=== PATIENT | female | born 1935 | race Caucasian/White ===

== ENCOUNTER 2018-07-02 11:58 | Inpatient (IN) | payer MEDICARE, BC ==
[~2018-07-02 11:58] MED LIST: Acetaminophen 325 MG Tab PO PRN; Bisacodyl 5 MG Tab PO PRN; Ondansetron 4 MG Tab.DIS PO PRN; Ondansetron 4 MG/2 ML SDV IVPUSH PRN; Sennosides 8.6 MG Tab PO PRN; Sodium Chloride 0.9% 10 ML Syringe FLUSH PRN
[2018-07-02] MEDS ORDERED: Gabapentin 300 MG Cap PO SCH (12:00)
[2018-07-02] MEDS: Gabapentin 300 MG Cap PO SCH ×2 (13:07→17:19)
[2018-07-02] MEDS: Insulin Detemir 100 Units/ML 3 ML Pen SUBCUT SCH (17:16)
[2018-07-02] MEDS: Albuterol/Ipratropium 3.0-0.5 MG/3 ML Neb Soln NEB SCH ×2 (17:16→23:06)
[2018-07-02] MEDS: Carvedilol 25 MG Tab PO SCH (17:22)
[2018-07-02] MEDS ORDERED: Insulin Detemir 100 Units/ML 3 ML Pen SUBCUT SCH (18:00)
[2018-07-02] MEDS: Sodium Chloride 1 GM Tab PO SCH (19:27)
[2018-07-02] MEDS: traZODone 50 MG Tab PO SCH (19:27)
[2018-07-02] MEDS: buPROPion 150 MG Tab.SR PO SCH (19:27)
[2018-07-02] MEDS: Latanoprost 0.005% Ophth Soln 2.5 ML Bottle EYEBOTH SCH (19:28)
[2018-07-02] MEDS ORDERED: Latanoprost 0.005% Ophth Soln 2.5 ML Bottle EYEBOTH SCH (20:00)
[2018-07-03] MEDS ORDERED: Temazepam 15 MG Cap PO PRN (02:24)
[2018-07-03] MEDS ORDERED: Non-Formulary Medication 1 Each (Multivit-Min/Fa/Lycopene/Lut [Centrum Silver Tablet] 1 TA PO SCH (08:00)
[2018-07-03] MEDS ORDERED: METOLAZONE 5 MG PO SCH (08:00)
[2018-07-03] MEDS ORDERED: Insulin Detemir 100 Units/ML 3 ML Pen SUBCUT SCH (08:00)
[2018-07-03] MEDS ORDERED: Non-Formulary Medication 1 Each (Lisinopril [Lisinopril] 40 MG) PO SCH (08:00)
[2018-07-03] MEDS ORDERED: glipiZIDE 5 MG Tab.ER PO SCH (08:00)
[2018-07-03] MEDS: Metolazone 2.5 MG Tab PO SCH (08:06)
[2018-07-03] MEDS: Enoxaparin 30 MG/0.3 ML Syringe SUBCUT SCH (08:06)
[2018-07-03] MEDS: Albuterol/Ipratropium 3.0-0.5 MG/3 ML Neb Soln NEB SCH ×3 (08:06→23:35)
[2018-07-03] MEDS: atorvaSTATin 10 MG Tab PO SCH (08:06)
[2018-07-03] MEDS: Cholecalciferol (Vitamin D3) 1,000 Unit Tab PO SCH (08:07)
[2018-07-03] MEDS: glipiZIDE 5 MG Tab.ER PO SCH (08:07)
[2018-07-03] MEDS: amLODIPine 5 MG Tab PO SCH (08:09)
[2018-07-03] MEDS: Gabapentin 300 MG Cap PO SCH ×3 (08:09→17:39)
[2018-07-03] MEDS: Lisinopril 20 MG Tab PO SCH (08:10)
[2018-07-03] MEDS: buPROPion 150 MG Tab.SR PO SCH ×2 (08:10→20:16)
[2018-07-03] MEDS: Sodium Chloride 1 GM Tab PO SCH ×2 (08:11→20:15)
[2018-07-03] MEDS: Carvedilol 25 MG Tab PO SCH ×2 (08:11→17:37)
[2018-07-03] MEDS: Multivitamin Tab PO SCH (08:12)
[2018-07-03] MEDS: Insulin Detemir 100 Units/ML 3 ML Pen SUBCUT SCH ×2 (08:12→17:42)
[2018-07-03] MEDS: traZODone 50 MG Tab PO SCH (20:16)
[2018-07-03] MEDS: Latanoprost 0.005% Ophth Soln 2.5 ML Bottle EYEBOTH SCH (20:16)
[2018-07-04] MEDS: Albuterol/Ipratropium 3.0-0.5 MG/3 ML Neb Soln NEB SCH ×3 (07:27→23:35)
[2018-07-04] MEDS: Enoxaparin 30 MG/0.3 ML Syringe SUBCUT SCH (07:27)
[2018-07-04] MEDS: Multivitamin Tab PO SCH (07:28)
[2018-07-04] MEDS: Gabapentin 300 MG Cap PO SCH ×4 (07:28→17:16)
[2018-07-04] MEDS: glipiZIDE 5 MG Tab.ER PO SCH (07:28)
[2018-07-04] MEDS: Metolazone 2.5 MG Tab PO SCH (07:28)
[2018-07-04] MEDS: buPROPion 150 MG Tab.SR PO SCH ×2 (07:28→19:52)
[2018-07-04] MEDS: Lisinopril 20 MG Tab PO SCH (07:28)
[2018-07-04] MEDS: atorvaSTATin 10 MG Tab PO SCH (07:28)
[2018-07-04] MEDS: Carvedilol 25 MG Tab PO SCH ×2 (07:29→16:55)
[2018-07-04] MEDS: amLODIPine 5 MG Tab PO SCH (07:29)
[2018-07-04] MEDS: Cholecalciferol (Vitamin D3) 1,000 Unit Tab PO SCH (07:29)
[2018-07-04] MEDS: Sodium Chloride 1 GM Tab PO SCH ×2 (07:29→19:52)
[2018-07-04] MEDS: Insulin Detemir 100 Units/ML 3 ML Pen SUBCUT SCH ×3 (08:30→17:17)
--- NOTE | 2018-07-04 12:31 | PCM.PN ---
- General Info Date of Service: 07/04/18 Admission Dx/Problem (Free Text): Patient admitted with urosepsis acute [place] supraventricular tach Functional Status: Reports: Other (Same as above) - Review of Systems General: Reports: Fever, Weakness HEENT: Reports: No Symptoms Pulmonary: Reports: Shortness of Breath Cardiovascular: Reports: No Symptoms Gastrointestinal: Reports: No Symptoms Genitourinary: Reports: Other ([place]gett catheter) Musculoskeletal: Reports: No Symptoms Neurological: Reports: Confusion, Weakness Psychiatric: Reports: Confusion, Agitation - Patient Data Vitals - Most Recent: Last Vital Signs Temp 97.8 F 07/04/18 07:32 Pulse 56 L 07/04/18 07:32 Resp 20 07/04/18 07:32 BP 136/73 07/04/18 07:32 Pulse Ox 92 L 07/04/18 07:32 Weight - Most Recent: 180 lb 15.992 oz I&O - Last 24 Hours: Intake & Output 07/03/18 07/04/18 07/04/18 22:59 06:59 14:59 Intake Total 910 320 Balance 910 320 Lab Results Last 24 Hours: Laboratory Results - last 24 hr 07/03/18 07/03/18 07/03/18 Range/Units 11:29 16:51 21:22 POC Glucose 118 H 124 H 136 H (65-110) mg/dl 07/04/18 07/04/18 07/04/18 Range/Units 03:48 04:58 07:07 POC Glucose 37 L* 93 102 (65-110) mg/dl 07/04/18 Range/Units 11:00 POC Glucose 111 H (65-110) mg/dl Med Orders - Current: Current Medications Acetaminophen (Tylenol) 650 mg PO Q4H PRN PRN Reason: Pain (Mild 1-3)/fever Albuterol/Ipratropium (Duoneb 3.0-0.5 Mg/3 Ml) 3 ml NEB Q8HRRT [facility] Last Admin: 07/04/18 07:27 Dose: 3 ml Amlodipine Besylate (Norvasc) 10 mg PO DAILY [facility] Last Admin: 07/04/18 07:29 Dose: 10 mg Atorvastatin Calcium (Lipitor) 10 mg PO DAILY [facility] Last Admin: 07/04/18 07:28 Dose: 10 mg Bisacodyl (Dulcolax) 5 mg PO DAILY PRN PRN Reason: Constipation Bupropion HCl (Wellbutrin Sr) 150 mg PO Q12H [facility] Last Admin: 07/04/18 07:28 Dose: 150 mg Carvedilol (Coreg) 25 mg PO BIDMEALS [facility] Last Admin: 07/04/18 07:29 Dose: 25 mg Cholecalciferol (Vitamin D3) 3,000 units PO DAILY [facility] Last Admin: 07/04/18 07:29 Dose: 3,000 units Coenzyme Q10 (Coenzyme Q10) 100 mg PO DAILY [facility] Last Admin: 07/04/18 07:28 Dose: 100 mg Enoxaparin Sodium (Lovenox) 30 mg SUBCUT DAILY [facility] Last Admin: 07/04/18 07:27 Dose: 30 mg Gabapentin (Neurontin) 300 mg PO TID [facility] Last Admin: 07/04/18 11:20 Dose: 300 mg Glipizide (Glucotrol Xl) 5 mg PO DAILY [facility] Last Admin: 07/04/18 07:28 Dose: 5 mg Insulin Detemir (Levemir) 35 unit SUBCUT QAM [facility] Last Admin: 07/04/18 08:30 Dose: 35 units Insulin Detemir (Levemir) 20 unit SUBCUT QPM [facility] Latanoprost (Xalatan 0.005% Ophth Soln) 0 ml EYEBOTH BEDTIME [facility] Last Admin: 07/03/18 20:16 Dose: 1 drop Lisinopril (Prinivil) 40 mg PO DAILY [facility] Last Admin: 07/04/18 07:28 Dose: 40 mg Metolazone (Zaroxolyn) 5 mg PO DAILY [facility] Last Admin: 07/04/18 07:28 Dose: 5 mg Multivitamins/Minerals/Vitamin C (Tab-A-Anson) 1 tab PO DAILY [facility] Last Admin: 07/04/18 07:28 Dose: 1 tab Ondansetron HCl (Zofran Odt) 4 mg PO Q6H PRN PRN Reason: Nausea/Vomiting Senna (Senna) 8.6 mg PO BID PRN PRN Reason: Constipation Sodium Chloride (Sodium Chloride) 1 gm PO BID@08,20 [facility] Last Admin: 07/04/18 07:29 Dose: 1 gm Sodium Chloride (Saline Flush) 10 ml FLUSH ASDIRECTED PRN PRN Reason: Keep Vein Open Sodium Chloride (Saline Flush) 10 ml FLUSH ASDIRECTED PRN PRN Reason: Keep Vein Open Temazepam (Restoril) 15 mg PO BEDTIME PRN PRN Reason: Insomnia Last Admin: 07/03/18 02:35 Dose: 15 mg Trazodone HCl (Trazodone) 100 mg PO BEDTIME [facility] Last Admin: 07/03/18 20:16 Dose: 100 mg Discontinued Medications Gabapentin (Neurontin) 300 mg PO TID [facility] Glipizide (Glucotrol Xl) 5 mg PO DAILY [facility] Insulin Detemir (Levemir) 30 unit SUBCUT QPM [facility] Insulin Detemir (Levemir) 35 unit SUBCUT QAM [facility] Insulin Detemir (Levemir) 30 unit SUBCUT QPM [facility] Last Admin: 07/03/18 17:42 Dose: 30 units Latanoprost (Xalatan 0.005% Ophth Soln) 0 ml EYEBOTH BEDTIME [facility] Non-Formulary Medication (Lisinopril [Lisinopril]) 40 mg PO DAILY [facility] Non-Formulary Medication (Metolazone [Metolazone]) 5 mg PO DAILY [facility] Non-Formulary Medication (Multivit-Min/Fa/Lycopene/Lut [Centrum Silver Tablet]) 1 tab PO DAILY [facility] Ondansetron HCl (Zofran) 4 mg IVPUSH Q6H PRN PRN Reason: Nausea/Vomiting - Exam Quality Assessment: Supplemental Oxygen General: Moderate Distress HEENT: Pupils Equal, Pupils Reactive, EOMI, Mucous Membr. Moist/[place] Neck: Supple Lungs: Clear to Auscultation, Decreased Breath Sounds Cardiovascular: Irregular Rhythm GI/Abdominal Exam: Normal Bowel Sounds, Soft, Non-Tender, No Organomegaly, No Distention, No Abnormal Bruit, No Mass, Pelvis Stable (Female) Exam: Deferred Back Exam: Normal Inspection, Full Range of Motion Extremities: No Pedal Edema Skin: Warm, Dry, Intact Psy/Mental Status: Labile Mood, Anxious, Depressed, Agitated - Problem List & Annotations (1) Sepsis SNOMED Code(s): 09231941 Code(s): A41.9 - SEPSIS, UNSPECIFIED ORGANISM Status: Acute Priority: High Current Visit: Yes Annotation/Comment:: Patient's blood culture positive for gram-positive cocci's Negative bacillus we will go ahead and add Levaquin to antibiotics - Problem List Review Problem List Initiated/Reviewed/Updated: Yes - My Orders Last 24 Hours: My Active Orders 07/04/18 12:21 Communication Order [RC] ASDIRECTED 07/04/18 18:00 Insulin Detemir [Levemir] 20 unit SUBCUT QPM
--- NOTE | 2018-07-04 12:41 | PCM.PN ---
- General Info Date of Service: 07/04/18 Admission Dx/Problem (Free Text): Patient admitted with urosepsis acute [place] supraventricular tach Functional Status: Reports: Tolerating Diet - Review of Systems General: Reports: No Symptoms HEENT: Reports: No Symptoms Pulmonary: Reports: No Symptoms Cardiovascular: Reports: No Symptoms Gastrointestinal: Reports: No Symptoms Genitourinary: Reports: No Symptoms Musculoskeletal: Reports: No Symptoms Skin: Reports: No Symptoms Neurological: Reports: No Symptoms Psychiatric: Reports: Other (History of depression patient has admitted suicide ideation and attempts patient states that she took leg 10 trazodone to see if she would go to sleep and not wake up and again she has tried insulin for the same reason she seems to be having a hard time coping with family patient will be referred to psychiatry for possible) - Patient Data Vitals - Most Recent: Last Vital Signs Temp 97.8 F 07/04/18 07:32 Pulse 56 L 07/04/18 07:32 Resp 20 07/04/18 07:32 BP 136/73 07/04/18 07:32 Pulse Ox 92 L 07/04/18 07:32 Weight - Most Recent: 180 lb 15.992 oz I&O - Last 24 Hours: Intake & Output 07/03/18 07/04/18 07/04/18 22:59 06:59 14:59 Intake Total 910 320 Balance 910 320 Lab Results Last 24 Hours: Laboratory Results - last 24 hr 07/03/18 07/03/18 07/03/18 Range/Units 11:29 16:51 21:22 POC Glucose 118 H 124 H 136 H (65-110) mg/dl 07/04/18 07/04/18 07/04/18 Range/Units 03:48 04:58 07:07 POC Glucose 37 L* 93 102 (65-110) mg/dl 07/04/18 Range/Units 11:00 POC Glucose 111 H (65-110) mg/dl Med Orders - Current: Current Medications Acetaminophen (Tylenol) 650 mg PO Q4H PRN PRN Reason: Pain (Mild 1-3)/fever Albuterol/Ipratropium (Duoneb 3.0-0.5 Mg/3 Ml) 3 ml NEB Q8HRRT [facility] Last Admin: 07/04/18 07:27 Dose: 3 ml Amlodipine Besylate (Norvasc) 10 mg PO DAILY [facility] Last Admin: 07/04/18 07:29 Dose: 10 mg Atorvastatin Calcium (Lipitor) 10 mg PO DAILY [facility] Last Admin: 07/04/18 07:28 Dose: 10 mg Bisacodyl (Dulcolax) 5 mg PO DAILY PRN PRN Reason: Constipation Bupropion HCl (Wellbutrin Sr) 150 mg PO Q12H [facility] Last Admin: 07/04/18 07:28 Dose: 150 mg Carvedilol (Coreg) 25 mg PO BIDMEALS [facility] Last Admin: 07/04/18 07:29 Dose: 25 mg Cholecalciferol (Vitamin D3) 3,000 units PO DAILY [facility] Last Admin: 07/04/18 07:29 Dose: 3,000 units Coenzyme Q10 (Coenzyme Q10) 100 mg PO DAILY [facility] Last Admin: 07/04/18 07:28 Dose: 100 mg Gabapentin (Neurontin) 300 mg PO TID [facility] Last Admin: 07/04/18 11:20 Dose: 300 mg Glipizide (Glucotrol Xl) 5 mg PO DAILY [facility] Last Admin: 07/04/18 07:28 Dose: 5 mg Levofloxacin/Dextrose 500 mg/ (Premix) 100 mls @ 100 mls/hr IV Q48H [facility] Insulin Detemir (Levemir) 35 unit SUBCUT QAM [facility] Last Admin: 07/04/18 08:30 Dose: 35 units Insulin Detemir (Levemir) 20 unit SUBCUT QPM [facility] Latanoprost (Xalatan 0.005% Oph Soln) 0 ml EYEBOTH BEDTIME [facility] Last Admin: 07/03/18 20:16 Dose: 1 drop Lisinopril (Prinivil) 40 mg PO DAILY [facility] Last Admin: 07/04/18 07:28 Dose: 40 mg Metolazone (Zaroxolyn) 5 mg PO DAILY [facility] Last Admin: 07/04/18 07:28 Dose: 5 mg Multivitamins/Minerals/Vitamin C (Tab-A-Anson) 1 tab PO DAILY [facility] Last Admin: 07/04/18 07:28 Dose: 1 tab Ondansetron HCl (Zofran Odt) 4 mg PO Q6H PRN PRN Reason: Nausea/Vomiting Senna (Senna) 8.6 mg PO BID PRN PRN Reason: Constipation Sodium Chloride (Sodium Chloride) 1 gm PO BID@08,20 [facility] Last Admin: 07/04/18 07:29 Dose: 1 gm Sodium Chloride (Saline Flush) 10 ml FLUSH ASDIRECTED PRN PRN Reason: Keep Vein Open Sodium Chloride (Saline Flush) 10 ml FLUSH ASDIRECTED PRN PRN Reason: Keep Vein Open Temazepam (Restoril) 15 mg PO BEDTIME PRN PRN Reason: Insomnia Last Admin: 07/03/18 02:35 Dose: 15 mg Trazodone HCl (Trazodone) 100 mg PO BEDTIME [facility] Last Admin: 07/03/18 20:16 Dose: 100 mg Discontinued Medications Enoxaparin Sodium (Lovenox) 30 mg SUBCUT DAILY [facility] Last Admin: 07/04/18 07:27 Dose: 30 mg Gabapentin (Neurontin) 300 mg PO TID [facility] Glipizide (Glucotrol Xl) 5 mg PO DAILY [facility] Insulin Detemir (Levemir) 30 unit SUBCUT QPM [facility] Insulin Detemir (Levemir) 35 unit SUBCUT QAM [facility] Insulin Detemir (Levemir) 30 unit SUBCUT QPM [facility] Last Admin: 07/03/18 17:42 Dose: 30 units Latanoprost (Xalatan 0.005% Ophth Soln) 0 ml EYEBOTH BEDTIME [facility] Non-Formulary Medication (Lisinopril [Lisinopril]) 40 mg PO DAILY [facility] Non-Formulary Medication (Metolazone [Metolazone]) 5 mg PO DAILY [facility] Non-Formulary Medication (Multivit-Min/Fa/Lycopene/Lut [Centrum Silver Tablet]) 1 tab PO DAILY [facility] Ondansetron HCl (Zofran) 4 mg IVPUSH Q6H PRN PRN Reason: Nausea/Vomiting - Exam General: Alert, Oriented HEENT: Pupils Equal, Pupils Reactive, EOMI, Mucous Membr. Moist/[place] Neck: Supple Lungs: Clear to Auscultation, Normal Respiratory Effort Cardiovascular: Regular Rate, Regular Rhythm GI/Abdominal Exam: Normal Bowel Sounds, Soft, Non-Tender, No Organomegaly, No Distention, No Abnormal Bruit, No Mass, Pelvis Stable (Female) Exam: Normal External Exam, Normal Speculum Exam, Normal Bimanual Exam Back Exam: Normal Inspection Extremities: Other (Weakness) Skin: Warm, Dry, Intact Wound/Incisions: Healing Well Neurological: No New Focal Deficit Psy/Mental Status: Alert, Normal Affect, Normal Mood - Problem List & Annotations (1) Sepsis SNOMED Code(s): 87244087 Code(s): A41.9 - SEPSIS, UNSPECIFIED ORGANISM Status: Acute Priority: High Current Visit: Yes Annotation/Comment:: Patient's blood culture positive for gram-positive cocci's Negative bacillus we will go ahead and add Levaquin to antibiotics (2) Depression SNOMED Code(s): 89807385 Code(s): F32.9 - MAJOR DEPRESSIVE DISORDER, SINGLE EPISODE, UNSPECIFIED Status: Acute Current Visit: Yes - Problem List Review Problem List Initiated/Reviewed/Updated: Yes - My Orders Last 24 Hours: My Active Orders 07/04/18 12:21 Communication Order [RC] ASDIRECTED 07/04/18 12:33 Communication Order [RC] ASDIRECTED 07/04/18 12:45 Levofloxacin/Dextrose 5%-Water [Levaquin in D5W 500 MG/100 ML] 500 mg Premix Bag 1 bag IV Q48H 07/04/18 18:00 Insulin Detemir [Levemir] 20 unit SUBCUT QPM 07/05/18 05:11 BASIC METABOLIC PANEL,BMP [CHEM] AM CBC W/O DIFF,HEMOGRAM [HEME] AM
[2018-07-04] MEDS ORDERED: Levofloxacin/Dextrose 5%-Water 500 MG in Premix Bag 1 BAG IV SCH (13:00)
[2018-07-04] MEDS: traZODone 50 MG Tab PO SCH (19:52)
[2018-07-04] MEDS: Latanoprost 0.005% Ophth Soln 2.5 ML Bottle EYEBOTH SCH (19:53)
[2018-07-05] MEDS: Sodium Chloride 1 GM Tab PO SCH ×2 (07:28→19:53)
[2018-07-05] MEDS: amLODIPine 5 MG Tab PO SCH (07:28)
[2018-07-05] MEDS: glipiZIDE 5 MG Tab.ER PO SCH (07:29)
[2018-07-05] MEDS: Lisinopril 20 MG Tab PO SCH (07:29)
[2018-07-05] MEDS: atorvaSTATin 10 MG Tab PO SCH (07:29)
[2018-07-05] MEDS: Multivitamin Tab PO SCH (07:29)
[2018-07-05] MEDS: Carvedilol 25 MG Tab PO SCH ×2 (07:29→17:30)
[2018-07-05] MEDS: Metolazone 2.5 MG Tab PO SCH (07:29)
[2018-07-05] MEDS: buPROPion 150 MG Tab.SR PO SCH ×2 (07:29→19:52)
[2018-07-05] MEDS: Cholecalciferol (Vitamin D3) 1,000 Unit Tab PO SCH (07:29)
[2018-07-05] MEDS: Gabapentin 300 MG Cap PO SCH ×3 (07:29→17:33)
[2018-07-05] MEDS: Albuterol/Ipratropium 3.0-0.5 MG/3 ML Neb Soln NEB SCH ×2 (07:30→15:49)
[2018-07-05] MEDS: Insulin Detemir 100 Units/ML 3 ML Pen SUBCUT SCH ×2 (07:30→17:13)
[2018-07-05] MEDS ORDERED: Furosemide 40 MG Tab PO ONE (08:21)
[2018-07-05] MEDS ORDERED: Insulin Detemir 100 Units/ML 3 ML Pen SUBCUT ONE (17:10)
--- NOTE | 2018-07-05 18:52 | PCM.SN ---
- Free Text/Narrative Note: Patient admitted to [facility] after inpatient stay for CHF/SOB/hyponatremia. Did mention to staff that she had tried to overdose on Trazodone recently. Also apparently tried to give self extra insulin as she has been having suicidal thoughts recently. Patient also mentioned to one nurse that if she gets any sicker she could just overdose on insulin in the future. Family member reports that patient mentioned to her that she would be better off when they spoke within the last few weeks. Patient currently denies having active suicidal thoughts when visited today. She admits to feeling isolated and lonely at the [facility]. Family reports that patient's overall health and mobility have declined over the past few years. Call placed to [facility] today to discuss patient's admission of of the above/ suicidal thoughts. Discussed situation with from Psychiatry. No beds are currently available at [facility]. Given patient's current mobility issues /CHF this could be a road block to easy placement in an inpatient situation if it is decided that it is required. He felt that the best option would be to have the family bring the patient to the [facility] ER when she is discharged from [facility] so that she can be quickly evaluated for the above and best treatment options can be determined. It was not recommended that she return home and wait for outpatient evaluation as that can take some time to arrange. The [facility] is able to lock patient's medications away in the med dispensing area and this will avoid easy access for inappropriate use in the future once patient returns home. Patient's labs repeated today. Sodium is mildly low but holding steady. Hgb is still lower than when patient was admitted. Occult blood testing of stool requested. Vital signs stable. Patient says she still feels better than when she first arrived. Alert and oriented appropriately. Lungs did not reveal wheezes/rales/rhonchi. Brisk capillary refill. Edema lower legs unchanged. Heart RRR. PT/OT anticipate patient will likely be able to be discharged at the end of the week. Family is willing to take her to the [facility] ER at that time for psych evaluation.
[2018-07-05] MEDS: Latanoprost 0.005% Ophth Soln 2.5 ML Bottle EYEBOTH SCH (19:53)
[2018-07-05] MEDS: traZODone 50 MG Tab PO SCH (19:53)
[2018-07-06] MEDS: Albuterol/Ipratropium 3.0-0.5 MG/3 ML Neb Soln NEB SCH ×3 (01:48→15:41)
[2018-07-06] MEDS: Cholecalciferol (Vitamin D3) 1,000 Unit Tab PO SCH (07:44)
[2018-07-06] MEDS: buPROPion 150 MG Tab.SR PO SCH ×2 (07:45→20:34)
[2018-07-06] MEDS: Metolazone 2.5 MG Tab PO SCH (07:45)
[2018-07-06] MEDS: Multivitamin Tab PO SCH (07:46)
[2018-07-06] MEDS: Gabapentin 300 MG Cap PO SCH ×3 (07:47→17:11)
[2018-07-06] MEDS: atorvaSTATin 10 MG Tab PO SCH (07:47)
[2018-07-06] MEDS: Sodium Chloride 1 GM Tab PO SCH ×2 (07:49→20:34)
[2018-07-06] MEDS: glipiZIDE 5 MG Tab.ER PO SCH (07:49)
[2018-07-06] MEDS: Insulin Detemir 100 Units/ML 3 ML Pen SUBCUT SCH ×2 (07:50→17:12)
[2018-07-06] MEDS: Lisinopril 20 MG Tab PO SCH (08:31)
[2018-07-06] MEDS: amLODIPine 5 MG Tab PO SCH (08:31)
[2018-07-06] MEDS: Carvedilol 25 MG Tab PO SCH ×2 (08:31→17:11)
[2018-07-06] MEDS: traZODone 50 MG Tab PO SCH (20:34)
[2018-07-06] MEDS: Latanoprost 0.005% Ophth Soln 2.5 ML Bottle EYEBOTH SCH (20:34)
[2018-07-07] MEDS: Albuterol/Ipratropium 3.0-0.5 MG/3 ML Neb Soln NEB SCH ×3 (00:08→15:18)
[2018-07-07] MEDS: Sodium Chloride 1 GM Tab PO SCH ×2 (07:45→19:54)
[2018-07-07] MEDS: Multivitamin Tab PO SCH (07:46)
[2018-07-07] MEDS: buPROPion 150 MG Tab.SR PO SCH ×2 (07:46→19:54)
[2018-07-07] MEDS: Cholecalciferol (Vitamin D3) 1,000 Unit Tab PO SCH (07:46)
[2018-07-07] MEDS: Carvedilol 25 MG Tab PO SCH ×2 (07:47→18:02)
[2018-07-07] MEDS: glipiZIDE 5 MG Tab.ER PO SCH (07:47)
[2018-07-07] MEDS: Lisinopril 20 MG Tab PO SCH (07:47)
[2018-07-07] MEDS: atorvaSTATin 10 MG Tab PO SCH (07:47)
[2018-07-07] MEDS: amLODIPine 5 MG Tab PO SCH (07:48)
[2018-07-07] MEDS: Metolazone 2.5 MG Tab PO SCH (07:48)
[2018-07-07] MEDS: Gabapentin 300 MG Cap PO SCH ×3 (07:49→18:02)
[2018-07-07] MEDS: Insulin Detemir 100 Units/ML 3 ML Pen SUBCUT SCH ×2 (07:49→17:57)
[2018-07-07] MEDS: traZODone 50 MG Tab PO SCH (19:54)
[2018-07-07] MEDS: Latanoprost 0.005% Ophth Soln 2.5 ML Bottle EYEBOTH SCH (19:55)
--- NOTE | 2018-07-07 21:00 | PCM.SN ---
- Free Text/Narrative Note: Call placed to [facility] to look into patient placement for evaluation of recent suicidal thoughts/gestures. Approximately 3 hours later they responded that they did not feel like she was an appropriate patient for their facility. Family is interested in patient having psychiatric evaluation and are agreeable with an inpatient stay. Patient continues to deny having active suicidal thoughts/feelings and currently denies having a plan. PT and OT are continuing their work with patient with anticipated discharge next week.
[2018-07-08] MEDS: Albuterol/Ipratropium 3.0-0.5 MG/3 ML Neb Soln NEB SCH ×3 (03:56→16:42)
[2018-07-08] MEDS: Insulin Detemir 100 Units/ML 3 ML Pen SUBCUT SCH ×2 (08:05→17:28)
[2018-07-08] MEDS: Lisinopril 20 MG Tab PO SCH (08:07)
[2018-07-08] MEDS: Multivitamin Tab PO SCH (08:07)
[2018-07-08] MEDS: Cholecalciferol (Vitamin D3) 1,000 Unit Tab PO SCH (08:07)
[2018-07-08] MEDS: Carvedilol 25 MG Tab PO SCH ×2 (08:07→17:28)
[2018-07-08] MEDS: Sodium Chloride 1 GM Tab PO SCH ×2 (08:07→20:12)
[2018-07-08] MEDS: amLODIPine 5 MG Tab PO SCH (08:07)
[2018-07-08] MEDS: Gabapentin 300 MG Cap PO SCH ×3 (08:07→17:28)
[2018-07-08] MEDS: buPROPion 150 MG Tab.SR PO SCH ×2 (08:07→20:12)
[2018-07-08] MEDS: atorvaSTATin 10 MG Tab PO SCH (08:07)
[2018-07-08] MEDS: Metolazone 2.5 MG Tab PO SCH (08:07)
[2018-07-08] MEDS: glipiZIDE 5 MG Tab.ER PO SCH (08:07)
--- NOTE | 2018-07-08 12:18 | PCM.SN ---
- Free Text/Narrative Note: I called [facility] today and talked to their behavioral science clinic about possible psych evaluation. They are 3 months for psychology and 8 months our for psychiatry. This timeframe will not work for the patient as I feel she needs to be seen sooner. Called [facility] and working with them now to see if they will accept her for evaluation and treatment.
--- NOTE | 2018-07-08 13:25 | PCM.SN ---
- Free Text/Narrative Note: [facility] unable to take patient for evaluation and treatment. [facility] contacted. Left a message for discussion of patient.
[2018-07-08] MEDS: traZODone 50 MG Tab PO SCH (20:12)
[2018-07-08] MEDS: Latanoprost 0.005% Ophth Soln 2.5 ML Bottle EYEBOTH SCH (20:14)
[2018-07-09] MEDS: Albuterol/Ipratropium 3.0-0.5 MG/3 ML Neb Soln NEB SCH ×3 (01:01→17:27)
[2018-07-09] MEDS: Carvedilol 25 MG Tab PO SCH ×2 (09:25→17:27)
[2018-07-09] MEDS: atorvaSTATin 10 MG Tab PO SCH (09:26)
[2018-07-09] MEDS: Lisinopril 20 MG Tab PO SCH (09:27)
[2018-07-09] MEDS: Gabapentin 300 MG Cap PO SCH ×3 (09:27→17:27)
[2018-07-09] MEDS: amLODIPine 5 MG Tab PO SCH (09:27)
[2018-07-09] MEDS: Sodium Chloride 1 GM Tab PO SCH ×2 (09:28→21:06)
[2018-07-09] MEDS: Multivitamin Tab PO SCH (09:28)
[2018-07-09] MEDS: Cholecalciferol (Vitamin D3) 1,000 Unit Tab PO SCH (09:28)
[2018-07-09] MEDS: Metolazone 2.5 MG Tab PO SCH (09:29)
[2018-07-09] MEDS: buPROPion 150 MG Tab.SR PO SCH ×2 (09:29→21:06)
[2018-07-09] MEDS: glipiZIDE 5 MG Tab.ER PO SCH (09:41)
[2018-07-09] MEDS: Insulin Detemir 100 Units/ML 3 ML Pen SUBCUT SCH ×2 (09:41→17:27)
[2018-07-09] MEDS: traZODone 50 MG Tab PO SCH (21:07)
[2018-07-09] MEDS: Latanoprost 0.005% Ophth Soln 2.5 ML Bottle EYEBOTH SCH (21:07)
[2018-07-10] MEDS: Albuterol/Ipratropium 3.0-0.5 MG/3 ML Neb Soln NEB SCH ×3 (00:23→16:05)
[2018-07-10] MEDS: Multivitamin Tab PO SCH (07:48)
[2018-07-10] MEDS: Metolazone 2.5 MG Tab PO SCH (07:48)
[2018-07-10] MEDS: atorvaSTATin 10 MG Tab PO SCH (07:49)
[2018-07-10] MEDS: glipiZIDE 5 MG Tab.ER PO SCH (07:49)
[2018-07-10] MEDS: buPROPion 150 MG Tab.SR PO SCH ×2 (07:49→21:44)
[2018-07-10] MEDS: Carvedilol 25 MG Tab PO SCH ×2 (07:49→17:44)
[2018-07-10] MEDS: amLODIPine 5 MG Tab PO SCH (07:50)
[2018-07-10] MEDS: Sodium Chloride 1 GM Tab PO SCH ×2 (07:50→21:39)
[2018-07-10] MEDS: Lisinopril 20 MG Tab PO SCH (07:53)
[2018-07-10] MEDS: Cholecalciferol (Vitamin D3) 1,000 Unit Tab PO SCH (07:53)
[2018-07-10] MEDS: Gabapentin 300 MG Cap PO SCH ×3 (07:53→17:44)
[2018-07-10] MEDS: Insulin Detemir 100 Units/ML 3 ML Pen SUBCUT SCH ×2 (07:54→17:45)
[2018-07-10] MEDS: traZODone 50 MG Tab PO SCH (21:39)
[2018-07-10] MEDS: Latanoprost 0.005% Ophth Soln 2.5 ML Bottle EYEBOTH SCH (21:40)
[2018-07-11] MEDS: Albuterol/Ipratropium 3.0-0.5 MG/3 ML Neb Soln NEB SCH ×3 (02:38→16:47)
[2018-07-11] MEDS: Metolazone 2.5 MG Tab PO SCH (07:59)
[2018-07-11] MEDS: atorvaSTATin 10 MG Tab PO SCH (08:00)
[2018-07-11] MEDS: Multivitamin Tab PO SCH (08:00)
[2018-07-11] MEDS: Lisinopril 20 MG Tab PO SCH (08:00)
[2018-07-11] MEDS: Sodium Chloride 1 GM Tab PO SCH ×2 (08:00→19:33)
[2018-07-11] MEDS: Cholecalciferol (Vitamin D3) 1,000 Unit Tab PO SCH (08:01)
[2018-07-11] MEDS: Carvedilol 25 MG Tab PO SCH ×2 (08:01→17:58)
[2018-07-11] MEDS: glipiZIDE 5 MG Tab.ER PO SCH (08:02)
[2018-07-11] MEDS: Gabapentin 300 MG Cap PO SCH ×3 (08:02→17:57)
[2018-07-11] MEDS: amLODIPine 5 MG Tab PO SCH (08:02)
[2018-07-11] MEDS: Insulin Detemir 100 Units/ML 3 ML Pen SUBCUT SCH ×2 (08:03→17:58)
[2018-07-11] MEDS: buPROPion 150 MG Tab.SR PO SCH ×2 (08:10→19:33)
[2018-07-11] MEDS: Latanoprost 0.005% Ophth Soln 2.5 ML Bottle EYEBOTH SCH (19:33)
[2018-07-11] MEDS: traZODone 50 MG Tab PO SCH (19:33)
[2018-07-12] MEDS: Albuterol/Ipratropium 3.0-0.5 MG/3 ML Neb Soln NEB SCH ×4 (01:10→23:58)
[2018-07-12] MEDS: buPROPion 150 MG Tab.SR PO SCH ×2 (07:41→19:49)
[2018-07-12] MEDS: Cholecalciferol (Vitamin D3) 1,000 Unit Tab PO SCH (07:41)
[2018-07-12] MEDS: Gabapentin 300 MG Cap PO SCH ×3 (07:41→17:36)
[2018-07-12] MEDS: Metolazone 2.5 MG Tab PO SCH (07:41)
[2018-07-12] MEDS: glipiZIDE 5 MG Tab.ER PO SCH (07:42)
[2018-07-12] MEDS: Sodium Chloride 1 GM Tab PO SCH ×2 (07:42→19:50)
[2018-07-12] MEDS: Multivitamin Tab PO SCH (07:42)
[2018-07-12] MEDS: Insulin Detemir 100 Units/ML 3 ML Pen SUBCUT SCH ×2 (07:42→17:36)
[2018-07-12] MEDS: atorvaSTATin 10 MG Tab PO SCH (07:42)
[2018-07-12] MEDS: Carvedilol 25 MG Tab PO SCH ×2 (08:30→17:34)
[2018-07-12] MEDS: amLODIPine 5 MG Tab PO SCH (08:31)
[2018-07-12] MEDS: Lisinopril 20 MG Tab PO SCH (08:31)
[2018-07-12] MEDS: traZODone 50 MG Tab PO SCH (19:49)
[2018-07-12] MEDS: Latanoprost 0.005% Ophth Soln 2.5 ML Bottle EYEBOTH SCH (19:50)
[2018-07-13] MEDS: Sodium Chloride 1 GM Tab PO SCH ×2 (07:45→21:14)
[2018-07-13] MEDS: glipiZIDE 5 MG Tab.ER PO SCH (07:46)
[2018-07-13] MEDS: Lisinopril 20 MG Tab PO SCH (07:47)
[2018-07-13] MEDS: Cholecalciferol (Vitamin D3) 1,000 Unit Tab PO SCH (07:48)
[2018-07-13] MEDS: Metolazone 2.5 MG Tab PO SCH (07:49)
[2018-07-13] MEDS: atorvaSTATin 10 MG Tab PO SCH (07:50)
[2018-07-13] MEDS: Gabapentin 300 MG Cap PO SCH ×3 (07:52→17:05)
[2018-07-13] MEDS: buPROPion 150 MG Tab.SR PO SCH ×2 (07:52→21:14)
[2018-07-13] MEDS: Carvedilol 25 MG Tab PO SCH ×2 (07:53→17:06)
[2018-07-13] MEDS: Multivitamin Tab PO SCH (07:54)
[2018-07-13] MEDS: amLODIPine 5 MG Tab PO SCH (07:54)
[2018-07-13] MEDS: Insulin Detemir 100 Units/ML 3 ML Pen SUBCUT SCH ×2 (07:55→17:08)
[2018-07-13] MEDS: Albuterol/Ipratropium 3.0-0.5 MG/3 ML Neb Soln NEB SCH ×2 (07:55→17:08)
[2018-07-13] MEDS: traZODone 50 MG Tab PO SCH (21:14)
[2018-07-13] MEDS: Latanoprost 0.005% Ophth Soln 2.5 ML Bottle EYEBOTH SCH (21:15)
[2018-07-14] MEDS: Albuterol/Ipratropium 3.0-0.5 MG/3 ML Neb Soln NEB SCH ×3 (02:53→15:51)
[2018-07-14] MEDS: Gabapentin 300 MG Cap PO SCH ×3 (07:44→17:03)
[2018-07-14] MEDS: Sodium Chloride 1 GM Tab PO SCH ×2 (07:44→21:35)
[2018-07-14] MEDS: Carvedilol 25 MG Tab PO SCH ×2 (07:45→16:48)
[2018-07-14] MEDS: Cholecalciferol (Vitamin D3) 1,000 Unit Tab PO SCH (07:45)
[2018-07-14] MEDS: glipiZIDE 5 MG Tab.ER PO SCH (07:45)
[2018-07-14] MEDS: Metolazone 2.5 MG Tab PO SCH (07:46)
[2018-07-14] MEDS: buPROPion 150 MG Tab.SR PO SCH ×2 (07:46→21:35)
[2018-07-14] MEDS: amLODIPine 5 MG Tab PO SCH (07:47)
[2018-07-14] MEDS: Multivitamin Tab PO SCH (07:47)
[2018-07-14] MEDS: Lisinopril 20 MG Tab PO SCH (07:47)
[2018-07-14] MEDS: atorvaSTATin 10 MG Tab PO SCH (07:47)
[2018-07-14] MEDS: Insulin Detemir 100 Units/ML 3 ML Pen SUBCUT SCH ×2 (07:49→17:03)
--- NOTE | 2018-07-14 15:08 | PCM.DCSUM1 ---
Discharge Summary - Hospital Course Free Text/Narrative:: Patient is a 83-year-old female who was admitted to the hospital and transferred to [facility] secondary to hyponatremia diabetes COPD and CHF patient did quite well over her recover nicely at this time she is ready to go back to [facility]. Patient also admitted to suicidal attempts while in our facility so outpatient psych appointment was set up for 07-15-18. Patient will leave facility and go to this appointment on day of DC. Patient has home 02 concentrator at home- wears 1 L at night time. Appointment scheduled with [facility] in [place] on 07-15-17 at 10am. Patient will DC with home health back to the [facility]. [facility] health will be working with patient. Patient is home bound due to needing ADL therapy and medication management. PT/OT consult with home health. Diagnosis: Stroke: No - Discharge Data Discharge Date: 07/15/18 (Patient to be DC'd in [place] on 07-15-18 to attend outpatient psych appointment) Discharge Disposition: Home, Self-Care 01 Condition: Good - Patient Summary/Data Consults: Consultations 07/02/18 11:25 Consult to Case Management [CONS] Routine OT Evaluation and Treatment [CONS] Routine PT Evaluation and Treatment [CONS] Routine - Patient Instructions Diet: Diabetic Diet Activity: As Tolerated Driving: Do Not Drive Showering/Bathing: May Shower Other/Special Instructions: Patient has home 02 concentrator at home- wears 1 L at night time. Appointment scheduled with [facility] in [place] on at 10am. Patient will DC with home health back to the [facility]. [facility] will be working with patient. Patient is home bound due to needing ADL therapy and medication management. PT/OT consult with home health. - Discharge Plan *PRESCRIPTION DRUG MONITORING PROGRAM REVIEWED*: Not Applicable *COPY OF PRESCRIPTION DRUG MONITORING REPORT IN PATIENT KRYSTYNA: Not Applicable Prescriptions/Med Rec: Albuterol/Ipratropium [DuoNeb 3.0-0.5 MG/3 ML] 3 ml NEB Q8HRRT #1 box buPROPion [Wellbutrin SR] 150 mg PO Q12H #60 tab.sr Cholecalciferol (Vitamin D3) [Vitamin D3] 3,000 units PO DAILY #30 tablet Insulin Detemir [Levemir] 20 unit SUBCUT QPM #1 pen Sodium Chloride 1 gm PO BID@ #60 tablet Ubidecarenone [Coenzyme Q10] 100 mg PO DAILY #30 cap Home Medications: Home Meds Aspirin [Halfprin] 81 mg PO DAILY 06/24/18 [History] Carvedilol 25 mg PO BIDMEALS 06/24/18 [History] Gabapentin [Neurontin] 300 mg PO TID 06/24/18 [History] Insulin Detemir [Levemir Flextouch] 35 units SUBCUT QAM 06/24/18 [History] Latanoprost [Xalatan 0.005% Ophth Soln] 1 drop EYEBOTH BEDTIME 06/24/18 [History ] Lisinopril 40 mg PO DAILY 06/24/18 [History] Multivit-Min/FA/Lycopene/Lut [Centrum Silver Tablet] 1 tab PO DAILY 06/24/18 [ History] amLODIPine Besylate [Norvasc] 10 mg PO DAILY 06/24/18 [History] atorvaSTATin Calcium [Lipitor] 10 mg PO DAILY 06/24/18 [History] glipiZIDE [Glipizide ER] 5 mg PO DAILY 06/24/18 [History] traZODone HCl [Trazodone HCl] 100 mg PO BEDTIME 06/24/18 [History] metOLazone [Metolazone] 5 mg PO DAILY 06/29/18 [History] Albuterol/Ipratropium [DuoNeb 3.0-0.5 MG/3 ML] 3 ml NEB Q8HRRT #1 box 07/14/18 [ Rx] Cholecalciferol (Vitamin D3) [Vitamin D3] 3,000 units PO DAILY #30 tablet [Rx] Insulin Detemir [Levemir] 20 unit SUBCUT QPM #1 pen 07/14/18 [Rx] Sodium Chloride 1 gm PO BID@ #60 tablet 07/14/18 [Rx] Ubidecarenone [Coenzyme Q10] 100 mg PO DAILY #30 cap 07/14/18 [Rx] buPROPion [Wellbutrin SR] 150 mg PO Q12H #60 tab.sr 07/14/18 [Rx] Patient Handouts: Bupropion tablets (Depression/Mood Disorders), Suicidal Feelings: How to Help Yourself, Heart Failure, [id number], Chronic Obstructive Pulmonary Disease Exacerbation, [id number], Hypertension, Easy-to- Read, Weakness, [id number], Hyperglycemia, [id number] Referrals: Counseling, [facility] [Other] (Appointment Scheduled for 10 am on 07-15-18) Karuna Napier PA-C [Primary Care Provider] - (Follow up with PCP for post hospitalization appointment at [facility] within 5-7 days of discharge. ) - Discharge Summary/Plan Comment DC Time >30 min.: Yes (45 min) - General Info Date of Service: 07/14/18 - Review of Systems General: Reports: No Symptoms HEENT: Reports: No Symptoms Pulmonary: Reports: No Symptoms Cardiovascular: Reports: No Symptoms Gastrointestinal: Reports: No Symptoms Genitourinary: Reports: No Symptoms Musculoskeletal: Reports: No Symptoms Skin: Reports: No Symptoms Neurological: Reports: No Symptoms Psychiatric: Denies: Suicidal Ideation (denies it currently ) - Patient Data Vitals - Most Recent: Last Vital Signs Temp 98 F 07/14/18 07:42 Pulse 60 07/14/18 08:00 Resp 18 07/14/18 07:42 BP 148/61 H 07/14/18 07:47 Pulse Ox 96 07/14/18 08:00 Weight - Most Recent: 183 lb I&O - Last 24 hours: Intake & Output 07/14/18 07/14/18 07/14/18 06:59 14:59 22:59 Intake Total 720 Balance 720 Lab Results - Last 24 hrs: Laboratory Results - last 24 hr 07/13/18 07/13/18 07/14/18 Range/Units 16:55 20:12 07:02 POC Glucose 82 112 H 131 H (65-110) mg/dl 07/14/18 Range/Units 11:02 POC Glucose 215 H (65-110) mg/dl Med Orders - Current: Current Medications Acetaminophen (Tylenol) 650 mg PO Q4H PRN PRN Reason: Pain (Mild 1-3)/fever Albuterol/Ipratropium (Duoneb 3.0-0.5 Mg/3 Ml) 3 ml NEB Q8HRRT MARY Last Admin: 07/14/18 07:59 Dose: 3 ml Amlodipine Besylate (Norvasc) 10 mg PO DAILY MARY Last Admin: 07/14/18 07:47 Dose: 10 mg Atorvastatin Calcium (Lipitor) 10 mg PO DAILY [facility] Last Admin: 07/14/18 07:47 Dose: 10 mg Bisacodyl (Dulcolax) 5 mg PO DAILY PRN PRN Reason: Constipation Bupropion HCl (Wellbutrin Sr) 150 mg PO Q12H [facility] Last Admin: 07/14/18 07:46 Dose: 150 mg Carvedilol (Coreg) 25 mg PO BIDMEALS [facility] Last Admin: 07/14/18 07:45 Dose: 25 mg Cholecalciferol (Vitamin D3) 3,000 units PO DAILY [facility] Last Admin: 07/14/18 07:45 Dose: 3,000 units Coenzyme Q10 (Coenzyme Q10) 100 mg PO DAILY [facility] Last Admin: 07/14/18 07:44 Dose: 100 mg Gabapentin (Neurontin) 300 mg PO TID [facility] Last Admin: 07/14/18 11:43 Dose: 300 mg Glipizide (Glucotrol Xl) 5 mg PO DAILY [facility] Last Admin: 07/14/18 07:45 Dose: 5 mg Insulin Detemir (Levemir) 35 unit SUBCUT QAM [facility] Last Admin: 07/14/18 07:49 Dose: 35 units Insulin Detemir (Levemir) 20 unit SUBCUT QPM [facility] Last Admin: 07/13/18 17:08 Dose: 20 units Latanoprost (Xalatan 0.005% Ophth Soln) 0 ml EYEBOTH BEDTIME [facility] Last Admin: 07/13/18 21:15 Dose: 1 drop Lisinopril (Prinivil) 40 mg PO DAILY [facility] Last Admin: 07/14/18 07:47 Dose: 40 mg Metolazone (Zaroxolyn) 5 mg PO DAILY [facility] Last Admin: 07/14/18 07:46 Dose: 5 mg Multivitamins/Minerals/Vitamin C (Tab-A-Anson) 1 tab PO DAILY [facility] Last Admin: 07/14/18 07:47 Dose: 1 tab Ondansetron HCl (Zofran Odt) 4 mg PO Q6H PRN PRN Reason: Nausea/Vomiting Senna (Senna) 8.6 mg PO BID PRN PRN Reason: Constipation Sodium Chloride (Sodium Chloride) 1 gm PO BID@08,20 [facility] Last Admin: 07/14/18 07:44 Dose: 1 gm Sodium Chloride (Saline Flush) 10 ml FLUSH ASDIRECTED PRN PRN Reason: Keep Vein Open Sodium Chloride (Saline Flush) 10 ml FLUSH ASDIRECTED PRN PRN Reason: Keep Vein Open Temazepam (Restoril) 15 mg PO BEDTIME PRN PRN Reason: Insomnia Last Admin: 07/03/18 02:35 Dose: 15 mg Trazodone HCl (Trazodone) 100 mg PO BEDTIME [facility] Last Admin: 07/13/18 21:14 Dose: 100 mg Discontinued Medications Enoxaparin Sodium (Lovenox) 30 mg SUBCUT DAILY [facility] Last Admin: 07/04/18 07:27 Dose: 30 mg Furosemide (Lasix) 40 mg PO ONETIME ONE Stop: 07/05/18 08:22 Last Admin: 07/05/18 08:47 Dose: 40 mg Gabapentin (Neurontin) 300 mg PO TID [facility] Glipizide (Glucotrol Xl) 5 mg PO DAILY [facility] Insulin Detemir (Levemir) 30 unit SUBCUT QPM [facility] Insulin Detemir (Levemir) 35 unit SUBCUT QAM [facility] Insulin Detemir (Levemir) 30 unit SUBCUT QPM [facility] Last Admin: 07/03/18 17:42 Dose: 30 units Insulin Detemir (Levemir) 10 unit SUBCUT ONETIME ONE Stop: 07/05/18 17:11 Last Admin: 07/05/18 17:33 Dose: 10 units Latanoprost (Xalatan 0.005% Ophth Soln) 0 ml EYEBOTH BEDTIME [facility] Non-Formulary Medication (Lisinopril [Lisinopril]) 40 mg PO DAILY [facility] Non-Formulary Medication (Metolazone [Metolazone]) 5 mg PO DAILY [facility] Non-Formulary Medication (Multivit-Min/Fa/Lycopene/Lut [Centrum Silver Tablet]) 1 tab PO DAILY [facility] Ondansetron HCl (Zofran) 4 mg IVPUSH Q6H PRN PRN Reason: Nausea/Vomiting - Exam General: Reports: Alert, Oriented HEENT: Reports: Pupils Equal, Pupils Reactive, EOMI, Mucous Membr. Moist/[place] Neck: Reports: Supple Lungs: Reports: Normal Respiratory Effort, Decreased Breath Sounds Cardiovascular: Reports: Regular Rate, Regular Rhythm GI/Abdominal Exam: Normal Bowel Sounds, Soft, Non-Tender, No Organomegaly, No Distention, No Abnormal Bruit, No Mass, Pelvis Stable (Female) Exam: Deferred Rectal (Female) Exam: Deferred Back Exam: Reports: Normal Inspection, Full Range of Motion Extremities: Normal Inspection, Normal Range of Motion, Non-Tender, No Pedal Edema, Normal Capillary Refill Skin: Reports: Warm, Dry, Intact Neurological: Reports: No New Focal Deficit Psy/Mental Status: Reports: Alert. Denies: Suicidal Ideation (but does have a hx of suicide attempts )
[2018-07-14] MEDS: traZODone 50 MG Tab PO SCH (21:35)
[2018-07-14] MEDS: Latanoprost 0.005% Ophth Soln 2.5 ML Bottle EYEBOTH SCH (21:36)
[2018-07-15] MEDS: Albuterol/Ipratropium 3.0-0.5 MG/3 ML Neb Soln NEB SCH ×2 (00:32→07:15)
[2018-07-15] MEDS: Cholecalciferol (Vitamin D3) 1,000 Unit Tab PO SCH (07:16)
[2018-07-15] MEDS: amLODIPine 5 MG Tab PO SCH (07:16)
[2018-07-15] MEDS: Metolazone 2.5 MG Tab PO SCH (07:16)
[2018-07-15] MEDS: buPROPion 150 MG Tab.SR PO SCH (07:16)
[2018-07-15] MEDS: atorvaSTATin 10 MG Tab PO SCH (07:16)
[2018-07-15] MEDS: glipiZIDE 5 MG Tab.ER PO SCH (07:16)
[2018-07-15] MEDS: Multivitamin Tab PO SCH (07:17)
[2018-07-15] MEDS: Carvedilol 25 MG Tab PO SCH (07:17)
[2018-07-15] MEDS: Lisinopril 20 MG Tab PO SCH (07:17)
[2018-07-15] MEDS: Insulin Detemir 100 Units/ML 3 ML Pen SUBCUT SCH (07:17)
[2018-07-15] MEDS: Gabapentin 300 MG Cap PO SCH (07:17)
[2018-07-15] MEDS: Sodium Chloride 1 GM Tab PO SCH (07:17)
== END 2018-07-15 08:30 | disposition home or self-care (01) | DRG 640 ==
LOC: LL.MS 11:58
PROVIDERS: ADMIT Family Medicine; ATTEND Family Medicine
DX: E87.1 Hypo-osmolality and hyponatremia (principal); A41.9 Sepsis, unspecified organism; F33.2 Major depressive disorder, recurrent severe without psychotic features; R45.851 Suicidal ideations; I11.0 Hypertensive heart disease with heart failure; I50.9 Heart failure, unspecified; E78.5 Hyperlipidemia, unspecified; E11.9 Type 2 diabetes mellitus without complications; Z79.4 Long term (current) use of insulin; R53.1 Weakness; Z99.81 Dependence on supplemental oxygen; J44.9 Chronic obstructive pulmonary disease, unspecified; Z79.82 Long term (current) use of aspirin; Z79.899 Other long term (current) drug therapy
CPT/HCPCS: 36415; 80048; 80053; 82272; 82962; 83880; 85025; 94640; 97110-GO; 97110-GP; 97112-GO; 97112-GP; 97161-GP; 97165-GO; 97530-GO; 97530-GP; 97535-GO; A9270-GY; J1650; J1815-GY; J7620-GY

== ENCOUNTER 2019-01-30 08:56 | Emergency (ER) | payer MEDICARE, BC ==
[2019-01-30] MEDS ORDERED: Bacitracin/Neomycin/Polymyxin B Oint 0.9 GM U/D Packet TOP ONE (09:22)
--- NOTE | 2019-01-30 09:35 | EDM.PDOC ---
ED HPI GENERAL MEDICAL PROBLEM - General Chief Complaint: Laceration Stated Complaint: Fall; head laceration Time Seen by Provider: 01/30/19 09:00 Source of Information: Reports: Patient, Family (Son), Half-Way Records, Old Records ([facility] EMR. No paper hospital chart available. ) History Limitations: Reports: No Limitations - History of Present Illness INITIAL COMMENTS - FREE TEXT/NARRATIVE: Patient was brought to the emergency room via transport vehicle from [facility]. The patient apparently tripped and had a minor fall in her residence hitting her head on the shower chair. She does have a long history of problems with balance, which has been stable by her history. No history of loss of consciousness, change in mental status, headaches, visual changes, diplopia, seizure activity, neck/back pain, change in her neurological deficits, or other complaints or injuries. The patient denies any chest pain/ pressure, heart flutter, dizziness, orthostasis, orthopnea, diaphoresis, paresthesias, recent decreased exercise tolerance, or any other anginal-type symptoms. No recent history of abdominal pain, heartburn, nausea, diarrhea, melena, gross hematochezia, or any food intolerance, including fatty foods, etc.. The patient also denies any recent fever, cough, wheezing, dyspnea, etc.. She is currently on influenza prophylaxis secondary to outbreak of influenza in her living facility. Onset: Today, Sudden Onset Date: 01/30/19 Onset Time: 08:20 Duration: Constant Location: Reports: Head. 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(s) Left Frontal Head Pain Score (Numeric/FACES): 5 - Related Data Allergies Allergy/AdvReac Type Severity Reaction Status Date / Time furosemide [From Lasix] Allergy Cannot Verified 01/30/19 09:10 Remember hydrochlorothiazide Allergy Cannot Verified 01/30/19 09:10 Remember triamterene Allergy Cannot Verified 01/30/19 09:10 Remember Home Meds: Home Meds Aspirin [Halfprin] 81 mg PO DAILY 06/24/18 [History] Carvedilol 25 mg PO BIDMEALS 06/24/18 [History] Gabapentin [Neurontin] 300 mg PO TID 06/24/18 [History] Insulin Detemir [Levemir Flextouch] 30 units SUBCUT QAM 06/24/18 [History] Latanoprost [Xalatan 0.005% Ophth Soln] 1 drop EYEBOTH BEDTIME 06/24/18 [History ] Lisinopril 40 mg PO DAILY 06/24/18 [History] Multivit-Min/FA/Lycopene/Lut [Centrum Silver Tablet] 1 tab PO DAILY 06/24/18 [ History] amLODIPine Besylate [Norvasc] 10 mg PO DAILY 06/24/18 [History] atorvaSTATin Calcium [Lipitor] 10 mg PO BEDTIME 06/24/18 [History] glipiZIDE [Glipizide ER] 5 mg PO DAILY 06/24/18 [History] traZODone HCl [Trazodone HCl] 100 mg PO BEDTIME 06/24/18 [History] metOLazone [Metolazone] 5 mg PO DAILY PRN 06/29/18 [History] Cholecalciferol (Vitamin D3) [Vitamin D3] 3,000 units PO DAILY #30 tablet [Rx] Sodium Chloride 1 gm PO BID@08,20 #60 tablet 07/14/18 [Rx] Ubidecarenone [Coenzyme Q10] 100 mg PO DAILY #30 cap 07/14/18 [Rx] Bumetanide [Bumex] 2 tab PO DAILY 01/30/19 [History] Insulin Detemir [Levemir] 15 unit SUBCUT BEDTIME 01/30/19 [History] Oseltamivir [Tamiflu] 30 mg PO BEDTIME 01/30/19 [History] Past Medical History HEENT History: Reports: Cataract, Glaucoma, Hard of Hearing, Impaired Vision Other HEENT History: Patient wears glasses. Complete dentures uppers and lowers. Cardiovascular History: Reports: Arrhythmia, CAD, Cardiomyopathy, Heart Failure , Heart Murmur, High Cholesterol, Hypertension, PVD, Other (See Below) Other Cardiovascular History: First Degree AV block diagnosed on 06/24/18. Progressive mild left ventricular hypertrophy with mild aortic valve insufficiency and history of recurrent CHF with decreased ejection fraction by echocardiogram in 2017 as below. Recurrent d-dimer elevation. Mild carotid occlusive disease. Respiratory History: Reports: Bronchitis, Recurrent, COPD, Pneumonia, Recurrent , Sleep Apnea, Other (See Below) Other Respiratory History: Patient is compliant with her CPAP. Gastrointestinal History: Reports: Other (See Below) Other Gastrointestinal History: Benign hepatic cysts. Genitourinary History: Reports: Acute Renal Failure, Chronic Renal Insuffiency, Diabetic Nephropathy, Other (See Below) Other Genitourinary History: Stable benign left renal angiomyolipoma. LMP (Approximate): Menopausal Musculoskeletal History: Reports: Back Pain, Chronic, Neck Pain, Chronic, Osteoarthritis Neurological History: Reports: Neuropathy, Diabetic, Neuropathy, Peripheral, Other (See Below) Other Neuro History: Recurrent falls. Psychiatric History: Reports: Anxiety, Depression, Suicide Attempt, Suicidal Ideation Other Psychiatric History: History of suicidal ideation (see nurses noted from ) Endocrine/Metabolic History: Reports: Diabetes, Type II, IDDM, Obesity/BMI 30+ Hematologic History: Reports: None Dermatologic History: Reports: Seborrheic Dermatitis, Other (See Below) Other Dermatologic History: Seborrheic Keratosis. - Infectious Disease History Infectious Disease History: Reports: None - Past Surgical History Head Surgeries/Procedures: Reports: None HEENT Surgical History: Reports: Cataract Surgery, Oral Surgery, Other (See Below) Other HEENT Surgeries/Procedures: Complete teeth extraction with complete dentures uppers and lowers. Cardiovascular Surgical History: Reports: None Respiratory Surgical History: Reports: None GI Surgical History: Reports: None Endocrine Surgical History: Reports: None Neurological Surgical History: Reports: None Musculoskeletal Surgical History: Reports: None Dermatological Surgical History: Reports: None - Past Imaging History Past Imaging History: Reports: Cardiac Echo (Last on 08/09/17 with ejection fraction of 4550 percent and findings as above.), Carotid US ( and 12/14.), CAT Scan (CT of the head on 08/10/18 and 12/21/15.), Mammogram (Last on 09/06/18.), MRI (Abdominal on 10/23/14 and 04/17/14.), Ultrasound (02/28/16), Venous Doppler (Venous Doppler studies of the right leg on 11/14/18 and 08/04/17.) Social & Family History - Family History Cardiac: Reports: Aneurysm - Caffeine Use Caffeine Use: Reports: Soda Other Caffeine Use: Has pop 1-2/week Caffeine Use Comment: 1x/weekly - Living Situation & Occupation Living situation: Reports: Extended Care Facility ([facility] ED ROS GENERAL - Review of Systems Review Of Systems: ROS reveals no pertinent complaints other than HPI. ED EXAM, GENERAL - Physical Exam Exam: See Below Exam Limited By: No Limitations General Appearance: Alert, WD/WN, No Apparent Distress Eye Exam: Bilateral Eye: EOMI, Normal Fundi, Normal Inspection (No nystagmus. Patient wearing glasses.), PERRL Ears: Normal External Exam, Normal Canal, Normal TMs, Hearing Loss (Mild bilateral presbycusis with no hearing aide therapy.) Nose: Normal Inspection, Normal Mucosa, No Blood Throat/Mouth: Normal Lips, Normal Gums, Normal Oropharynx, Normal Voice, No Airway Compromise. No: Normal Teeth (Complete dentures uppers and lowers), Dysphagia, Perioral Cyanosis Head: Normocephalic, Other (11.5 cm in diameter superficial irregular laceration over the mid superior left forehead region in the hair line with only mild localized swelling and ecchymosis with no crepitation, deformity, or sign of fracture. No foreign body, etc.). No: Facial Swelling, Facial Tenderness, Sinus Tenderness Neck: Supple, Non-Tender, Full Range of Motion, Carotid Bruit (Mild bilateral carotid bruits). No: Lymphadenopathy (L), Lymphadenopathy (R), Thyromegaly Respiratory/Chest: No Respiratory Distress, Lungs Clear, Normal Breath Sounds, No Accessory Muscle Use, Chest Non-Tender. No: Pleural Rub, Retractions Cardiovascular: Normal Peripheral Pulses, Regular Rate, Rhythm, No Gallop, No JVD, No Murmur, No Rub. No: No Edema (Dependent edema as below), Diastolic Murmur (Diastolic murmur not appreciated), Gallop/S3, Gallop/S4, Friction Rub Peripheral Pulses: 2+: Radial (L), Radial (R), Dorsalis Pedis (L), Dorsalis Pedis (R) GI/Abdominal: Normal Bowel Sounds, Soft, Non-Tender, No Organomegaly, No Distention, No Abnormal Bruit, No Mass, Pelvis Stable, Other (Obese). No: Guarding (Female) Exam: Deferred Rectal (Female) Exam: Deferred Back Exam: Full Range of Motion, CVA Tenderness (L), CVA Tenderness (R), Other ( Mild kyphoscoliosis). No: Decreased Range of Motion, Muscle Spasm Extremities: Normal Range of Motion, Non-Tender, Normal Capillary Refill, Pedal Edema (Trace bilateral pedal/pretibial edema), Other (Bilateral pes planusmild) . No: Alejandra's Sign Neurological: Alert, Oriented, CN II-XII Intact, Normal Cognition, Normal Gait, Normal Reflexes (Negative Babinski's, finger to nose, and pronator rotation tests. No evidence of facial paresis, tongue deviation, orthostasis, etc.. Excellent reverse thought processes.), No Motor/Sensory Deficits Psychiatric: Normal Affect, Normal Mood Skin Exam: No Rash, Ecchymosis (As above), Wound/Incision (As above). No: Diaphoretic, Lymphangitis, Petechiae, Rash Lymphatic: No Adenopathy Course - Vital Signs Text/Narrative:: Vital Signs - 24 hr 01/30/19 01/30/19 01/30/19 09:00 09:15 09:30 Temperature [ 36.8 C Temporal] Pulse, 61 Peripheral [ Pulse Oximetry] Respiratory 16 18 16 Rate Blood Pressure 176/68 H 135/103 H 175/70 H [Left Upper Arm ] O2 Sat by Pulse 97 99 97 Oximetry 01/30/19 01/30/19 09:45 10:00 Temperature [ Temporal] Pulse, Peripheral [ Pulse Oximetry] Respiratory 18 19 Rate Blood Pressure 188/82 H 171/62 H [Left Upper Arm ] O2 Sat by Pulse 99 97 Oximetry Last Recorded V/S: Last Vital Signs Temp 36.8 C 01/30/19 09:00 Pulse 61 01/30/19 09:00 Resp 19 01/30/19 10:00 BP 171/62 H 01/30/19 10:00 Pulse Ox 97 01/30/19 10:00 - Orders/Labs/Meds Orders: Active Orders 24 hr Category Date Time Status Blood Glucose Check, Bedside [RC] STAT Care 01/30/19 09:35 Active Cardiac Monitoring [RC] . DIRECTED Care 01/30/19 09:22 Active Labs: Laboratory Tests 01/30/19 Range/Units 09:43 POC Glucose 293 H* (65-110) mg/dl Meds: Medications Discontinued Medications Generic Name Dose Route Start Last Admin Trade Name Freq PRN Reason Stop Dose Admin Neomycin/Polymyxin/Bacitracin 1 each 01/30/19 09:22 01/30/19 09:30 Triple Antibiotic Oint TOP 01/30/19 09:23 1 each ONETIME ONE Administration - Radiology Interpretation Free Text/Narrative:: monitoring tech shows normal sinus rhythm with occasional mild sinus bradycardia in the high 50s with average heart rate in the 60s with no ectopy or arrhythmia. Departure - Departure Time of Disposition: 10:35 Disposition: Home, Self-Care 01 Condition: Good Clinical Impression: Laceration, IDDM (insulin dependent diabetes mellitus), Mixed anxiety depressive disorder Head contusion Qualifiers: Encounter type: initial encounter Contusion of head detail: scalp Qualified Code(s): S00.03XA - Contusion of scalp, initial encounter Hypertension Qualifiers: Hypertension type: essential hypertension Qualified Code(s): I10 - Essential ( primary) hypertension COPD (chronic obstructive pulmonary disease) Qualifiers: COPD type: unspecified COPD Qualified Code(s): J44.9 - Chronic obstructive pulmonary disease, unspecified Chronic kidney disease Qualifiers: Chronic kidney disease stage: unspecified stage Qualified Code(s): N18.9 - Chronic kidney disease, unspecified CHF (congestive heart failure) Qualifiers: Heart failure type: unspecified Heart failure chronicity: chronic Qualified Code(s): I50.9 - Heart failure, unspecified Osteoarthritis Qualifiers: Osteoarthritis location: multiple joints Osteoarthritis type: primary Qualified Code(s): M15.0 - Primary generalized (osteo)arthritis Peripheral neuropathy Qualifiers: Peripheral neuropathy type: idiopathic neuropathy, unspecified Qualified Code(s ): G60.9 - Hereditary and idiopathic neuropathy, unspecified - Discharge Information *PRESCRIPTION DRUG MONITORING PROGRAM REVIEWED*: Not Applicable *COPY OF PRESCRIPTION DRUG MONITORING REPORT IN PATIENT KRYSTYNA: Not Applicable Instructions: Contusion, [id number], Head Injury, Adult, [id number] Referrals: Karuna Napier PA-C [Primary Care Provider] - Forms: ED Department Discharge Additional Instructions: 1. Follow up with your regular provider in 10-14 days as needed, if symptoms persist. Bring these discharge instructions with you to that visit.. 2. Antibacterial soap wash/soak with subsequent antibacterial dressing such as Neosporin, etc. as directed 2 times per day until the wound or laceration site completely heals. Keep the area clean and dry with activity restrictions as discussed. Never use hydrogen peroxide for wound care. 3. Continue strict fall precautions 4. Blood pressure checks twice a day until otherwise directed by her regular provider, who should be updated in 48 hours with discussion of current status, today's fall, possible medication adjustments, and review of her above blood pressure with further instructions at that time 5. Head precautions as directed-see form. - Problem List & Annotations (1) Head contusion SNOMED Code(s): 282076909 Code(s): S00.93XA - CONTUSION OF UNSPECIFIED PART OF HEAD, INITIAL ENCOUNTER Status: Acute Priority: High Current Visit: Yes Onset Date: 01/30/19 Annotation/Comment:: Head contusion as above. Only mild localized swelling and superficial laceration with no evidence of skull deformity, crepitation, or significant injury. Head precautions given. Patient does have a history of recurrent falls and unsteadiness with regular provider to be updated as per discharge instructions. Continue strict fall precautions. Qualifiers: Encounter type: initial encounter Contusion of head detail: scalp Qualified Code(s): S00.03XA - Contusion of scalp, initial encounter (2) Laceration SNOMED Code(s): 110921096 Code(s): ZID0186 - Status: Acute Priority: High Current Visit: Yes Onset Date: 01/30/19 Annotation/Comment:: Superficial laceration not requiring repair. Neosporin dressing placed by the nurse. Emergency room nurse also verified last TdAP, which was given on 09/06/18. (3) COPD (chronic obstructive pulmonary disease) SNOMED Code(s): 21378228 Code(s): J44.9 - CHRONIC OBSTRUCTIVE PULMONARY DISEASE, UNSPECIFIED Status : Chronic Priority: Medium Current Visit: Yes Annotation/Comment:: No recent history of fever, bronchitic type symptoms, etc.. Note history of sleep apnea with patient compliant with her CPAP. Qualifiers: COPD type: unspecified COPD Qualified Code(s): J44.9 - Chronic obstructive pulmonary disease, unspecified (4) Chronic kidney disease SNOMED Code(s): 124688295 Code(s): N18.9 - CHRONIC KIDNEY DISEASE, UNSPECIFIED Status: Acute Priority: Medium Current Visit: Yes Annotation/Comment:: Diabetic nephropathy by history with continued close observation by her regular provider especially in light of her hypertension. Qualifiers: Chronic kidney disease stage: unspecified stage Qualified Code(s): N18.9 - Chronic kidney disease, unspecified (5) Osteoarthritis SNOMED Code(s): 491335806 Code(s): M19.90 - UNSPECIFIED OSTEOARTHRITIS, UNSPECIFIED SITE Status: Chronic Priority: Medium Current Visit: Yes Annotation/Comment:: Stable by history with no evidence of significant injury from today's minor fall. Qualifiers: Osteoarthritis location: multiple joints Osteoarthritis type: primary Qualified Code(s): M15.0 - Primary generalized (osteo)arthritis (6) CHF (congestive heart failure) SNOMED Code(s): 14351799 Code(s): I50.9 - HEART FAILURE, UNSPECIFIED Status: Chronic Priority: High Current Visit: Yes Annotation/Comment:: No recent chest pain or anginal type symptoms. Qualifiers: Heart failure type: unspecified Heart failure chronicity: chronic Qualified Code(s): I50.9 - Heart failure, unspecified (7) HTN (hypertension) SNOMED Code(s): 72762669 Code(s): I10 - ESSENTIAL (PRIMARY) HYPERTENSION Status: Chronic Priority : Medium Current Visit: Yes Annotation/Comment:: Patient did take her morning medications. Blood pressure somewhat elevated initially upon arrival to our facility. Blood pressures were improved prior to discharge without medical therapy. Continue to observe closely by her regular provider as per discharge instructions. 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 Continue to observe closely by regular provider. (9) Hyperlipidemia SNOMED Code(s): 99531432 Code(s): E78.5 - HYPERLIPIDEMIA, UNSPECIFIED Status: Chronic Priority: Medium Current Visit: Yes Annotation/Comment:: Currently under therapy. Qualifiers: Hyperlipidemia type: unspecified Qualified Code(s): E78.5 - Hyperlipidemia , unspecified (10) Peripheral neuropathy SNOMED Code(s): 659322898 Code(s): G62.9 - POLYNEUROPATHY, UNSPECIFIED Status: Chronic Priority: Medium Current Visit: Yes Annotation/Comment:: Diabetic neuropathy under therapy. Qualifiers: Peripheral neuropathy type: idiopathic neuropathy, unspecified Qualified Code(s): G60.9 - Hereditary and idiopathic neuropathy, unspecified - Problem List Review Problem List Initiated/Reviewed/Updated: Yes - My Orders Last 24 Hours: My Active Orders 01/30/19 09:22 Cardiac Monitoring [RC] . DIRECTED 01/30/19 09:35 Blood Glucose Check, Bedside [RC] STAT - Assessment/Plan Last 24 Hours: My Active Orders 01/30/19 09:22 Cardiac Monitoring [RC] . DIRECTED 01/30/19 09:35 Blood Glucose Check, Bedside [RC] STAT Assessment:: As above Plan: As above. Extensive precautions were given to the patient and her son, who are in agreement with the treatment plan. See Patient Instructions for further treatment and plan.
== END 2019-01-30 10:25 | disposition home or self-care (01) ==
LOC: LL.ED 08:56
DX: S01.81XA Laceration without foreign body of other part of head, initial encounter (principal); F41.8 Other specified anxiety disorders; I13.0 Hypertensive heart and chronic kidney disease with heart failure and stage 1 through stage 4 chronic kidney disease, or unspecified chronic kidney disease; I50.9 Heart failure, unspecified; N18.9 Chronic kidney disease, unspecified; M15.0 Primary generalized (osteo)arthritis; G60.9 Hereditary and idiopathic neuropathy, unspecified; J44.9 Chronic obstructive pulmonary disease, unspecified; E11.9 Type 2 diabetes mellitus without complications; E66.9 Obesity, unspecified; Z88.8 Allergy status to other drugs, medicaments and biological substances; Z79.82 Long term (current) use of aspirin; Z79.899 Other long term (current) drug therapy; W22.8XXA Striking against or struck by other objects, initial encounter
CPT/HCPCS: 82962; 99283; 99284

== ENCOUNTER 2019-07-15 09:28 | Emergency (ER) | payer MEDICARE, BC ==
--- NOTE | 2019-07-15 11:16 | EDM.PDOC ---
ED HPI GENERAL MEDICAL PROBLEM - General Chief Complaint: Trauma Stated Complaint: trauma Time Seen by Provider: 07/15/19 09:42 Source of Information: Reports: Patient, EMS History Limitations: Reports: No Limitations - History of Present Illness INITIAL COMMENTS - FREE TEXT/NARRATIVE: Patient fell while ambulating at the [facility]. Fell forward, hitting carpeted surface with forehead. Bloody nose, lacerations above bridge of nose. No LOC. No pain complaints. Brought by EMS to ER for evaluation. EMS called trauma code based on mechanism of injury, however no other injuries identified prior to arrival. Blood sugar 170s when checked. EMS unable to get IV established despite several attempts. Patient reports problems with feeling dizzy prior to fall. Has been having chronic issues with worsening dizziness issues recently, and has been seen for it at [facility]. No specific cause has been identified per patient/ family. - Related Data Allergies Allergy/AdvReac Type Severity Reaction Status Date / Time furosemide [From Lasix] Allergy Cannot Verified 07/15/19 11:10 Remember hydrochlorothiazide Allergy Cannot Verified 07/15/19 11:10 Remember triamterene Allergy Cannot Verified 07/15/19 11:10 Remember Home Meds: Home Meds Aspirin [Halfprin] 81 mg PO DAILY 06/24/18 [History] Carvedilol 25 mg PO BIDMEALS 06/24/18 [History] Gabapentin [Neurontin] 300 mg PO TID 06/24/18 [History] Insulin Detemir [Levemir Flextouch] 34 units SUBCUT QAM 06/24/18 [History] Latanoprost [Xalatan 0.005% Ophth Soln] 1 drop EYEBOTH BEDTIME 06/24/18 [History ] Lisinopril 40 mg PO DAILY 06/24/18 [History] Multivit-Min/FA/Lycopene/Lut [Centrum Silver Tablet] 1 tab PO DAILY 06/24/18 [ History] amLODIPine Besylate [Norvasc] 10 mg PO DAILY 06/24/18 [History] atorvaSTATin Calcium [Lipitor] 10 mg PO BEDTIME 06/24/18 [History] glipiZIDE [Glipizide ER] 5 mg PO DAILY 06/24/18 [History] traZODone HCl [Trazodone HCl] 100 mg PO BEDTIME 06/24/18 [History] metOLazone [Metolazone] 2.5 mg PO ASDIRECTED 06/29/18 [History] Sodium Chloride 1 gm PO BID@08,20 #60 tablet 07/14/18 [Rx] Ubidecarenone [Coenzyme Q10] 100 mg PO DAILY #30 cap 07/14/18 [Rx] Bumetanide [Bumex] 2 tab PO ASDIRECTED 01/30/19 [History] Insulin Detemir [Levemir] 14 unit SUBCUT BEDTIME 01/30/19 [History] Cholecalciferol (Vitamin D3) [Vitamin D3] 1,000 units PO DAILY 07/15/19 [History ] hydrALAZINE [Apresoline] 50 mg PO TID 07/15/19 [History] Past Medical History HEENT History: Reports: Cataract, Glaucoma, Hard of Hearing, Impaired Vision Other HEENT History: Patient wears glasses. Complete dentures uppers and lowers. Cardiovascular History: Reports: Arrhythmia, CAD, Cardiomyopathy, Heart Failure , Heart Murmur, High Cholesterol, Hypertension, PVD, Other (See Below) Other Cardiovascular History: First Degree AV block diagnosed on 06/24/18. Progressive mild left ventricular hypertrophy with mild aortic valve insufficiency and history of recurrent CHF with decreased ejection fraction by echocardiogram in 2017 as below. Recurrent d-dimer elevation. Mild carotid occlusive disease. Respiratory History: Reports: Bronchitis, Recurrent, COPD, Pneumonia, Recurrent , Sleep Apnea, Other (See Below) Other Respiratory History: Patient is compliant with her CPAP. Gastrointestinal History: Reports: Other (See Below) Other Gastrointestinal History: Benign hepatic cysts. Genitourinary History: Reports: Acute Renal Failure, Chronic Renal Insuffiency, Diabetic Nephropathy, Other (See Below) Other Genitourinary History: Stable benign left renal angiomyolipoma. Musculoskeletal History: Reports: Back Pain, Chronic, Neck Pain, Chronic, Osteoarthritis Neurological History: Reports: Neuropathy, Diabetic, Neuropathy, Peripheral, Other (See Below) Other Neuro History: Recurrent falls. Psychiatric History: Reports: Anxiety, Depression, Suicide Attempt, Suicidal Ideation Other Psychiatric History: History of suicidal ideation (see nurses noted from ) Endocrine/Metabolic History: Reports: Diabetes, Type II, IDDM, Obesity/BMI 30+ Hematologic History: Reports: None Dermatologic History: Reports: Seborrheic Dermatitis, Other (See Below) Other Dermatologic History: Seborrheic Keratosis. - Infectious Disease History Infectious Disease History: Reports: None - Past Surgical History Head Surgeries/Procedures: Reports: None HEENT Surgical History: Reports: Cataract Surgery, Oral Surgery, Other (See Below) Other HEENT Surgeries/Procedures: Complete teeth extraction with complete dentures uppers and lowers. Cardiovascular Surgical History: Reports: None Respiratory Surgical History: Reports: None GI Surgical History: Reports: None Endocrine Surgical History: Reports: None Neurological Surgical History: Reports: None Musculoskeletal Surgical History: Reports: None Dermatological Surgical History: Reports: None - Past Imaging History Past Imaging History: Reports: Cardiac Echo (Last on 08/09/17 with ejection fraction of 4550 percent and findings as above.), Carotid US ( and 12/14.), CAT Scan (CT of the head on 08/10/18 and 12/21/15.), Mammogram (Last on 09/06/18.), MRI (Abdominal on 10/23/14 and 04/17/14.), Ultrasound (02/28/16), Venous Doppler (Venous Doppler studies of the right leg on 11/14/18 and 08/04/17.) Social & Family History - Family History Cardiac: Reports: Aneurysm - Caffeine Use Caffeine Use: Reports: Soda Other Caffeine Use: Has pop 1-2/week Caffeine Use Comment: 1x/weekly - Living Situation & Occupation Living situation: Reports: Extended Care Facility ([facility] Review of Systems - Review of Systems Review Of Systems: ROS reveals no pertinent complaints other than HPI. Constitutional: Reports: No Symptoms Eyes: Reports: Other (patient has baseline poor vision). Denies: Vision Change Ears: Denies: Dizziness, Pain, Bloody Discharge, Purulent Discharge Nose: Reports: Epistaxis (mild, bilateral) Mouth/Throat: Denies: Bleeding, Lip Swelling, Loose Teeth, Pain, Difficulty Swallowing Respiratory: Reports: No Symptoms. Denies: Pleuritic Chest Pain Cardiovascular: Reports: Lightheadedness (intermittent dizziness/ lightheadedness recent weeks). Denies: Chest Pain, Syncope GI/Abdominal: Reports: No Symptoms. Denies: Abdominal Pain, Nausea, Vomiting Genitourinary: Reports: No Symptoms Musculoskeletal: Reports: Other (patient denies any new pain complaints/ injuries to neck/back/limbs/pelvis). Denies: Neck Pain, Joint Swelling Skin: Reports: Wound (forehead) Neurological: Reports: Dizziness, Difficulty Walking (baseline issues with balance/drags feet when walking/uses walker for assist. Worsening issues with recent exacerbation of dizziness. ). Denies: Confusion, Headache, Trouble Speaking, Change in Speech Psychiatric: Reports: No Symptoms ED EXAM, GENERAL - Physical Exam Exam: See Below Exam Limited By: No Limitations General Appearance: Alert, No Apparent Distress, Obese Eye Exam: Bilateral Eye: EOMI, Other (both pupils equal, 3mm, difficult to assess if they react to light) Ears: Normal External Exam, Normal Canal, Normal TMs, Other (patient is hard of hearing) Nose: Other (small amount of blood noted inside both nares, no active bleeding) . No: Nasal Tenderness Head: Other (several small lacerations noted in glabellar area) Neck: Supple, Non-Tender Respiratory/Chest: No Respiratory Distress, Lungs Clear, Normal Breath Sounds, No Accessory Muscle Use, Chest Non-Tender Cardiovascular: Regular Rate, Rhythm, No Murmur GI/Abdominal: Normal Bowel Sounds, Soft, Non-Tender, No Distention, Pelvis Stable (Female) Exam: Deferred Rectal (Female) Exam: Deferred Back Exam: Normal Inspection. No: CVA Tenderness (L), CVA Tenderness (R), Muscle Spasm, Paraspinal Tenderness, Vertebral Tenderness Extremities: Non-Tender, Normal Capillary Refill, Other (normal range of motion given patient's age and chronic medical conditions. Equal tone/strength bilaterally) Neurological: Alert, Oriented, Normal Cognition, No Motor/Sensory Deficits Psychiatric: Normal Affect, Normal Mood Skin Exam: Warm, Dry, Wound/Incision ED TRAUMA PROCEDURES - Laceration/Wound Repair Forehead Lac/Wound Length In cm: 3 (small lacerations noted glabellar area, 3cm right side, 1.5 cm left side) Appearance: Subcutaneous, Irregular, Clean Skin Prep: Chlorhexidine (Hibiciens) Exploration/Debridement/Repair: Wound Explored, No Foreign Material Found Closed With: Dermabond Course - Orders/Labs/Meds Orders: Active Orders 24 hr Category Date Time Status Orthostatic Vital Signs [RC] ASDIRECTED Care 07/15/19 11:09 Ordered Cervical Spine wo Cont [CT] Routine Exams 07/15/19 Taken Head wo Cont [CT] Routine Exams 07/15/19 Taken - Radiology Interpretation CT Results Date: 07/15/19 CT Results Time: 11:02 (no obvious intracranial bleeds/injuries, C-spine appears stable, no obvious fractures identified. ) - Re-Assessments/Exams Free Text/Narrative Re-Assessment/Exam: EMS unable to establish IV after several attempts. Nursing staff unable to establish IV after several attempts. Lab unable to draw for baseline labs. At this time trauma code was downgraded after initial assessment of patient. No further attempts for IV/lab made after that time. Blood sugar was noted to be in 170s via fingerstick. No other focal injuries identified during initial assessment. CT of head/neck performed. Radiology did not note any acute injuries. Minor lacerations located above bridge of nose repaired with tissue glue. Patient continued to say that she felt well. Orthostatics requested after patient reported feeling a bit lightheaded when she sat up later during stay. Earlier during initial evaluation she was able to sit up/stay up using arm rails without issue. 07/15/19 12:18 Unable to get orthostatics due to increased dizziness complaint when upright. Given the inability to stand and perform ADLs unable to discharge patient home. Two more attempts made to gain IV access and obtain blood for lab made but failed. BP stable. Pulse in 50s. EKG showed sinus zulema with 1st degree AV block. Intermittent PVCs on monitor. O2 at 1lpm. Sats 96%. Noted to drop to 90% when on room air. At this time transfer to [place] was discussed, given our inability to obtain labs. Patient also obtains much of her care there for her multiple chronic medical conditions and sees Cardiology, Nephrology, etc. Call placed to [place] and patient discussed with , Hospitalist. He accepted the patient for transfer. Departure - Departure Time of Disposition: 12:30 Disposition: DC/Tfer to Acute Hospital 02 Condition: Good Clinical Impression: Dizzinesses, Laceration Head contusion Qualifiers: Encounter type: initial encounter Contusion of head detail: scalp Qualified Code(s): S00.03XA - Contusion of scalp, initial encounter - Discharge Information *PRESCRIPTION DRUG MONITORING PROGRAM REVIEWED*: Not Applicable *COPY OF PRESCRIPTION DRUG MONITORING REPORT IN PATIENT KRYSTYNA: Not Applicable Forms: ED Department Discharge, Interfacility Transfer EMTALA - My Orders Last 24 Hours: My Active Orders 07/15/19 Cervical Spine wo Cont [CT] Routine Head wo Cont [CT] Routine 07/15/19 11:09 Orthostatic Vital Signs [RC] ASDIRECTED - Assessment/Plan Last 24 Hours: My Active Orders 07/15/19 Cervical Spine wo Cont [CT] Routine Head wo Cont [CT] Routine 07/15/19 11:09 Orthostatic Vital Signs [RC] ASDIRECTED
== END 2019-07-15 13:10 ==
LOC: LL.ED 09:28
DX: S01.81XA Laceration without foreign body of other part of head, initial encounter (principal); R42 Dizziness and giddiness; I13.0 Hypertensive heart and chronic kidney disease with heart failure and stage 1 through stage 4 chronic kidney disease, or unspecified chronic kidney disease; I50.9 Heart failure, unspecified; N18.9 Chronic kidney disease, unspecified; I25.10 Atherosclerotic heart disease of native coronary artery without angina pectoris; J44.9 Chronic obstructive pulmonary disease, unspecified; E11.40 Type 2 diabetes mellitus with diabetic neuropathy, unspecified; F41.9 Anxiety disorder, unspecified; F32.9 Major depressive disorder, single episode, unspecified; Z91.040 Latex allergy status; Z88.8 Allergy status to other drugs, medicaments and biological substances; Z79.82 Long term (current) use of aspirin; Z79.4 Long term (current) use of insulin; Z79.899 Other long term (current) drug therapy; W18.39XA Other fall on same level, initial encounter
CPT/HCPCS: 12013; 70450; 72125; 99285; 99285-25

== ENCOUNTER 2019-07-19 11:41 | Inpatient (IN) | payer MEDICARE, BC ==
--- NOTE | 2019-07-19 11:57 | PCM.HP.2 ---
H&P History of Present Illness - General Date of Service: 07/19/19 Admit Problem/Dx: Hypertension, Dizziness Source of Information: Patient History Limitations: Reports: No Limitations - Related Data Allergies/Adverse Reactions: Allergies Allergy/AdvReac Type Severity Reaction Status Date / Time furosemide [From Lasix] Allergy Cannot Verified 07/15/19 11:10 Remember hydrochlorothiazide Allergy Cannot Verified 07/15/19 11:10 Remember triamterene Allergy Cannot Verified 07/15/19 11:10 Remember Home Medications: Home Meds Aspirin [Halfprin] 81 mg PO DAILY 06/24/18 [History] Carvedilol 6.25 mg PO BIDMEALS 06/24/18 [History] Gabapentin [Neurontin] 300 mg PO TID 06/24/18 [History] Insulin Detemir [Levemir Flextouch] 34 units SUBCUT QAM 06/24/18 [History] Latanoprost [Xalatan 0.005% Ophth Soln] 1 drop EYEBOTH BEDTIME 06/24/18 [History ] Lisinopril 30 mg PO DAILY 06/24/18 [History] Multivit-Min/FA/Lycopene/Lut [Centrum Silver Tablet] 1 tab PO DAILY 06/24/18 [ History] amLODIPine Besylate [Norvasc] 10 mg PO DAILY 06/24/18 [History] atorvaSTATin Calcium [Lipitor] 10 mg PO BEDTIME 06/24/18 [History] glipiZIDE [Glipizide ER] 5 mg PO DAILY 06/24/18 [History] traZODone HCl [Trazodone HCl] 3 tab PO BEDTIME 06/24/18 [History] Ubidecarenone [Coenzyme Q10] 100 mg PO DAILY #30 cap 07/14/18 [Rx] Bumetanide [Bumex] 1 tab PO ASDIRECTED 01/30/19 [History] Insulin Detemir [Levemir] 18 unit SUBCUT BEDTIME 01/30/19 [History] Cholecalciferol (Vitamin D3) [Vitamin D3] 1,000 units PO DAILY 07/15/19 [History ] hydrALAZINE [Apresoline] 50 mg PO TID 07/15/19 [History] Alendronate Sodium [Fosamax] 70 mg PO WEEKLY 07/19/19 [History] Past Medical History HEENT History: Reports: Cataract, Glaucoma, Hard of Hearing, Impaired Vision Other HEENT History: Patient wears glasses. Complete dentures uppers and lowers. Cardiovascular History: Reports: Arrhythmia, CAD, Cardiomyopathy, Heart Failure , Heart Murmur, High Cholesterol, Hypertension, PVD, Other (See Below) Other Cardiovascular History: First Degree AV block diagnosed on 06/24/18. Progressive mild left ventricular hypertrophy with mild aortic valve insufficiency and history of recurrent CHF with decreased ejection fraction by echocardiogram in 2017 as below. Recurrent d-dimer elevation. Mild carotid occlusive disease. Respiratory History: Reports: Bronchitis, Recurrent, COPD, Pneumonia, Recurrent , Sleep Apnea, Other (See Below) Other Respiratory History: Patient is compliant with her CPAP. Gastrointestinal History: Reports: Other (See Below) Other Gastrointestinal History: Benign hepatic cysts. Genitourinary History: Reports: Acute Renal Failure, Chronic Renal Insuffiency, Diabetic Nephropathy, Other (See Below) Other Genitourinary History: Stable benign left renal angiomyolipoma. Musculoskeletal History: Reports: Back Pain, Chronic, Neck Pain, Chronic, Osteoarthritis Neurological History: Reports: Neuropathy, Diabetic, Neuropathy, Peripheral, Other (See Below) Other Neuro History: Recurrent falls. Psychiatric History: Reports: Anxiety, Depression, Suicide Attempt, Suicidal Ideation Other Psychiatric History: History of suicidal ideation (see nurses noted from ) Endocrine/Metabolic History: Reports: Diabetes, Type II, IDDM, Obesity/BMI 30+ Hematologic History: Reports: None Dermatologic History: Reports: Seborrheic Dermatitis, Other (See Below) Other Dermatologic History: Seborrheic Keratosis. - Infectious Disease History Infectious Disease History: Reports: None - Past Surgical History Head Surgeries/Procedures: Reports: None HEENT Surgical History: Reports: Cataract Surgery, Oral Surgery, Other (See Below) Other HEENT Surgeries/Procedures: Complete teeth extraction with complete dentures uppers and lowers. Cardiovascular Surgical History: Reports: None Respiratory Surgical History: Reports: None GI Surgical History: Reports: None Endocrine Surgical History: Reports: None Neurological Surgical History: Reports: None Musculoskeletal Surgical History: Reports: None Dermatological Surgical History: Reports: None - Past Imaging History Past Imaging History: Reports: Cardiac Echo (Last on 08/09/17 with ejection fraction of 4550 percent and findings as above.), Carotid US ( and 12/14.), CAT Scan (CT of the head on 08/10/18 and 12/21/15.), Mammogram (Last on 09/06/18.), MRI (Abdominal on 10/23/14 and 04/17/14.), Ultrasound (02/28/16), Venous Doppler (Venous Doppler studies of the right leg on 11/14/18 and 08/04/17.) Social & Family History - Family History Cardiac: Reports: Aneurysm - Caffeine Use Caffeine Use: Reports: Soda Other Caffeine Use: Has pop 1-2/week Caffeine Use Comment: 1x/weekly - Living Situation & Occupation Living situation: Reports: Extended Care Facility ([facility]) H&P Review of Systems - Review of Systems: Review Of Systems: See Below General: Reports: Weakness HEENT: Reports: No Symptoms, Glasses Pulmonary: Reports: No Symptoms Cardiovascular: Reports: No Symptoms Gastrointestinal: Reports: No Symptoms Genitourinary: Reports: No Symptoms Musculoskeletal: Reports: No Symptoms Skin: Reports: No Symptoms Psychiatric: Reports: No Symptoms Neurological: Reports: No Symptoms Exam - Exam Exam: See Below - Exam General: Alert, Oriented HEENT: Conjunctiva Clear, EACs Clear, Mucosa Moist & [place], Nares Patent, Posterior Pharynx Clear, Pupils Equal, Pupils Reactive Neck: Supple, Trachea Midline Lungs: Clear to Auscultation, Normal Respiratory Effort Cardiovascular: Regular Rate, Regular Rhythm GI/Abdominal Exam: Normal Bowel Sounds, Soft, Non-Tender (Female) Exam: Deferred Rectal (Female) Exam: Deferred Back Exam: Normal Inspection, Full Range of Motion Extremities: Pedal Edema (right leg is 1+ and Leg leg is trace edema) Skin: Warm, Dry, Intact Neuro Extensive - Mental Status: Alert, Oriented x3, Normal Mood/Affect, Normal Cognition Psychiatric: Alert, Normal Affect, Normal Mood - Problem List (1) Hypertension SNOMED Code(s): 17011345 ICD Code: I10 - ESSENTIAL (PRIMARY) HYPERTENSION Status: Acute Current Visit: Yes Problem Details: We will monitor blood pressure readings and maintain control prior to discharge. Qualifiers: Hypertension type: essential hypertension Qualified Code(s): I10 - Essential (primary) hypertension (2) Weakness SNOMED Code(s): 18259605 ICD Code: R53.1 - WEAKNESS Status: Acute Priority: High Current Visit: No Problem Details: PT OT during [facility] stay. (3) Chronic kidney disease SNOMED Code(s): 151689723 ICD Code: N18.9 - CHRONIC KIDNEY DISEASE, UNSPECIFIED Status: Acute Priority: Medium Current Visit: No Problem Details: Had hypokalemia while in the hospital. we will monitor labs due to CKD and CHF. Patient on bumex daily at this time. Qualifiers: Chronic kidney disease stage: unspecified stage Qualified Code(s): N18.9 - Chronic kidney disease, unspecified Problem List Initiated/Reviewed/Updated: Yes
[2019-07-19] MEDS: hydrALAZINE 50 MG Tab PO SCH ×2 (15:26→21:04)
[2019-07-19] MEDS: Carvedilol 6.25 MG Tab PO SCH (16:54)
[2019-07-19] MEDS: Gabapentin 300 MG Cap PO SCH (16:59)
[2019-07-19] MEDS: Acetaminophen 325 MG Tab PO PRN (17:11)
[2019-07-19] MEDS: Insulin Glarg,Human.Rec.Analog 100 UNIT/ML ML SUBCUT SCH (19:54)
[2019-07-19] MEDS: traZODone 50 MG Tab PO SCH (21:03)
[2019-07-19] MEDS: Latanoprost 0.005% Ophth Soln 2.5 ML Bottle EYEBOTH SCH (21:07)
[2019-07-20] MEDS: hydrALAZINE 50 MG Tab PO SCH ×3 (04:55→21:16)
[2019-07-20] MEDS ORDERED: Cholecalciferol (Vitamin D3) Drops 400 Units/1 ML 50 ML Bottle PO SCH (08:00)
--- OUTSIDE RECORDS SUMMARY | 2019-07-20 08:22 | XMSREPORT ---
:1935 Author Organization [facility] Address [address] [place] [address] [address] [place] [address] Care Team Providers Name Role Phone Karuna Napier PA-C Attributed Provider Karuna Napier PA-C Primary Care Provider Gayathri Saab RN Unavailable Vilma Yoder APRN-RAILROAD SUPERVISOR OF ENGINES Unavailable Reason for Visit Reason Comments Auth/Cert Status Reason Specialty Diagnoses / Procedures Referred By Contact Referred To Contact Encounter Details Date Type Department Care Team Description 07/15/2019 - Hospital Encounter [facility] Rene Bain MD [address] [place] [address] [phone] Dizziness 07/19/2019 Center Surgical Haresh Reyes MD [address] [place] [address] [phone] [address] Osbaldo Willoughby MD [address] [place] [address] [phone] [place] [address] Jemal Jackson MD [address] [place] [address] [phone] Allergies Active Allergy Reactions Severity Noted Date Comments Hydrochlorothiazide Other (Specify in 05/16/2012 Electrolyte W-Triamterene Comments) disturbances Furosemide Hives (High), High 04/07/2013 Itching documented as of this encounter (statuses as of 07/19/2019) Medications Medication Sig Dispensed Refills Start End Status Date Date aspirin 81 mg enteric Take 81 mg by 0 Active coated tablet mouth 1 time per day. latanoprost (XALATAN) Place 1 drop 0 Active 0.005 % ophthalmic into both solution eyes every night at bedtime. multivitamin (CENTRUM Take 1 tablet 0 Active SILVER) tablet by mouth 1 time per day. amLODIPine (NORVASC) 10 Take 10 mg by 3 Active mg tablet mouth 1 time 7 per day blood glucose test strip 1 time a day 1 box 0 Active (ONETOUCH ULTRA 2) as needed 8 w/DeviceIndications: (daily blood Iron deficiency anemia, sugar checks) unspecified iron Use to test deficiency anemia type blood as directed. Coenzyme Q10 (CO Q10 PO) Take 1 tablet 0 Active by mouth 1 time per day vitamin D3, Take 1,000 0 Active cholecalciferol, 1000 Units by units tablet mouth 1 time per day atorvaSTATin (LIPITOR) Take 0.5 45 tablet 4 Active 20 mg tabletIndications: tablets (10 9 Pure mg) by mouth hypercholesterolemia 1 time per day alendronate (FOSAMAX) 70 Take 1 tablet 4 tablet 12 Active mg tabletIndications: (70 mg) by 9 020 Osteopenia, unspecified mouth 1 time location a week Take 1/2 hour before first food of the day. Do not lie down for 30 min. after taking. insulin detemir (LEVEMIR 34 units in 5 pen 0 Active FLEXTOUCH) subcutaneous am and 18 9 injection units at pm (pen)Indications: Uncontrolled type 2 diabetes mellitus with hyperglycemia (HCC) hydrALAZINE (APRESOLINE) Take 1 tablet 270 tablet 0 Active 50 mg tabletIndications: (50 mg) by 9 020 Essential hypertension mouth 3 times a day blood glucose test strip USE TO TEST 100 each Active (ONETOUCH BLOOD SUGAR 9 ULTRAA)Indications: DIRECTED Fasting hyperglycemia TWICE A DAY UNIFINE PENTIPS 31G X 8 USE 300 each Active MM ShortIndications: DIRECTED WITH 9 Controlled diabetes INSULI N mellitus type 2 with complications (HCC) glipiZIDE ER (GLUCOTROL TAKE 1 TABLET 90 tablet 3 Active XL) 5 mg extended (5 MG) BY 9 release tablet (24 MOUTH 1 TIME hr)Indications: Heart PER DAY failure with preserved ejection fraction, class III (HCC) gabapentin (NEURONTIN) TAKE 1 90 capsule 1 Active 300 mg CAPSULE BY 9 capsuleIndications: MOUTH THREE Uncontrolled type 2 TIMES A DAY diabetes mellitus without complication, without long-term current use of insulin (HCC) traZODone (DESYREL) 50 Take 3 270 tablet 1 Active mg tablet tablets by 9 mouth at bedtime bumetanide (BUMEX) 1 mg Take 1 tablet 30 tablet 0 Active tabletIndications: (1 mg) by 020 Hypervolemia, mouth 1 time unspecified hypervolemia per day type carVEDilol (COREG) 6.25 Take 1 tablet 60 tablet 0 Active mg tabletIndications: (6.25 mg) by 9 Essential hypertension mouth 2 times a day with meals lisinopril Take 1 tablet 30 tablet 0 Active (PRINIVIL,ZESTRIL) 30 MG (30 mg) by 9 tabletIndications: mouth 1 time Essential hypertension per day triamcinolone acetonide Apply 45 g 0 Discontinued (KENALOG,ARISTOCORT) 0.1 topically 2 8 019 % creamIndications: times a day Urticaria, Drug allergy lisinopril (PRINIVIL, TAKE 1 TABLET 90 tablet 4 Discontinued ZESTRIL) 40 mg (40 MG) BY 019 tabletIndications: MOUTH 1 TIME Essential hypertension, PER DAY benign carVEDilol (COREG) 25 mg TAKE 1 TABLET 60 tablet 4 Discontinued tabletIndications: Heart BY MOUTH 019 failure with preserved TWICE A DAY ejection fraction, class WITH MEALS III ([facility]) sodium chloride 1 gm Take 1 g by 0 Discontinued tablet mouth 2 times 019 a day bumetanide (BUMEX) 2 mg Bumex 3mg 90 tablet 4 Discontinued tabletIndications: daily for 3 019 Cardiorenal syndrome days, Bumex with renal failure 2mg daily and Bumex 1mg daily PRN for 2lb weight gain in a day metOLazone (ZAROXOLYN) Take 1 tablet 6 tablet 0 Discontinued 2.5 mg (2.5 mg) by 9 019 tabletIndications: CKD mouth on (chronic kidney disease) Wednesday, stage 3, GFR 30-59 Wednesday and ml/min (HCC) Wednesday for 14 days documented as of this encounter (statuses as of 07/19/2019) Active Problems Problem Noted Date Accident due to mechanical fall without injury 07/16/2019 Dizziness 07/15/2019 Fall at care home 07/15/2019 Hypokalemia 07/15/2019 Osteopenia of multiple sites 05/25/2019 Heart failure managed at heart failure clinic 09/15/2018 Recurrent major depressive disorder, in partial remission 08/05/2018 Obesity with body mass index of 30.0-39.9 08/05/2018 Diastolic heart failure, NYHA class 3 07/01/2018 CHF exacerbation 06/25/2018 Chronic diastolic CHF (congestive heart failure) 09/27/2017 Adjustment disorder with anxiety 05/08/2013 Hyponatremia 11/16/2012 PATRICIA (obstructive sleep apnea) 11/10/2010 Overview: Bi-PAP 11 cm H20/ AHI 67.9 Disorder of skin or subcutaneous tissue 08/11/2010 Elevated sedimentation rate 08/11/2010 Other specified pre-operative examination 05/07/2010 Hypercalcemia 03/13/2010 Pulmonary hypertension 02/14/2010 Overview: Mild-moderate, with pressures of 46-50 mmHg. Most recent echo 03/29/13. Fluid overload 01/06/2010 Anemia 07/17/2009 Chronic kidney disease 01/14/2009 Diabetes mellitus with background retinopathy 01/14/2009 Other postprocedural status(V45.89) 10/15/2006 Spinal stenosis, unspecified region other than cervical 04/13/2006 Glaucoma 08/17/2005 Knee joint replacement by other means 08/17/2005 Essential hypertension 07/10/2003 Overview: Allergy to furosemide, hyponatremia with thiazide. Other and unspecified hyperlipidemia 07/10/2003 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, with long-term current use of insulin Chronic kidney disease, stage III (moderate) Persistent disorder of initiating or maintaining sleep Insomnia documented as of this encounter (statuses as of 07/19/2019) Resolved Problems Problem Noted Date Resolved Date Screening for malignant neoplasm of cervix 08/12/2011 03/15/2013 documented as of this encounter (statuses as of 07/19/2019) Immunizations Name Dates Previously Given Next Due FLU VACCINE HIGH DOSE 65YR+(Fluzone) 09/06/2018 FLU VACCINE SINGLE DOSE 09/10/2017 0.5mL(6MO+Fluzone/Flulaval/Fluarix;5YR+Af luria) Influenza Vaccine 09/04/2016, 09/16/2015, 09/05/2014 Pneumococcal Conj PCV13 04/16/2015 Pneumococcal Polysaccharide PPSV23 02/28/2014, 12/16/2000 TDAP 09/06/2018 Td(adult)preservative free 07/15/2007 Zoster Live(Zostavax) 10/06/2016 Zoster Recombinant (Shingrix) 11/07/2018, 09/06/2018 documented as of this encounter Social History Tobacco Use Types Packs/Day Years Used Date Former Smoker Quit: 11/29/1971 Smokeless Tobacco: Never Used Alcohol Use Drinks/Week oz/Week Comments No 2 Cans of beer 1.2 none normally, 1 glass of wine in last 3-4 years Sex Assigned at Date Recorded Not on file Job Start Date Occupation Industry Not on file Not on file Not on file Travel History Travel Start Travel End No recent travel history available. documented as of this encounter Last Filed Vital Signs Vital Sign Reading Time Taken Blood Pressure 144/56 07/19/2019 7:50 AM CDT Pulse 55 07/19/2019 7:50 AM CDT Temperature 36.9 C (98.4 F) 07/19/2019 7:50 AM CDT Respiratory Rate 16 07/19/2019 7:50 AM CDT Oxygen Saturation 98% 07/19/2019 7:50 AM CDT Inhaled Oxygen Concentration - - Weight 79.9 kg (176 lb 4.1 oz) 07/19/2019 5:25 AM CDT Height 154.9 cm (5' 1") 07/15/2019 2:35 PM CDT Body Mass Index 33.3 07/15/2019 2:35 PM CDT documented in this encounter Functional Status Functional Status Response Date of Assessment Is the person deaf or does he/she have serious difficulty Yes 07/15/2019 hearing? Is this person blind or does he/she have difficulty No 07/15/2019 seeing even when wearing glasses? Do you have difficulty with walking, balance, climbing Yes 07/15/2019 stairs, or had a fall in the last 3 months? Does the patient have difficulty dressing or bathing? No 07/15/2019 Because of a physical, mental, or emotional condition; No 07/15/2019 does this person have difficulty doing errands alone such as visiting a doctor's office or shopping? Cognitive Status Response Date of Assessment Because of a physical, mental, or emotional condition; No 07/15/2019 does this person have serious difficulty concentrating, remembering, or making decisions? documented as of this encounter Discharge Summaries Not on filedocumented in this encounter Discharge Instructions Mónica Higgins RN - 07/17/2019 Heart Failure Discharge Instructions Diet: Diet as ordered Follow instructions from our dietitian if one visited you Activity: Plan time every day for walking or other activity. If you feel tired and short of breath, stop and rest. Continue activity when ready. Follow guidelines given by cardiac rehab and nursing staff. Treatments/Self Care: Weigh yourself daily at the same time of the day and with the same amount of clothing. Write down your weight every day and keep this record. Avoid NSAIDs or Non-Steroidal Anti-Inflammatory Drugs (ie: Advil, Ibuprofen, Motrin, etc.) Contact Your Doctor If You Have Any of These Symptoms: Sudden weight gain of 2 pounds in a day or 5 pounds in a week. This is a sign of fluid build-up. Increased swelling in feet, ankles or legs. Worsening shortness of breath or trouble breathing at rest Having to sleep with more pillows or sitting up Frequent or worsening cough A decrease in amount of urine. Chest pain Confusion Questions about medications or other problems Review the Living Well with Heart Failure booklet for more information on caring for yourself or your loved one at home. documented in this encounter Medications at Time of Discharge Medication Sig Dispensed Refills Start Date End Date bumetanide (BUMEX) 1 mg Take 1 tablet (1 30 tablet 0 07/20/2019 07/24/2020 tabletIndications: mg) by mouth 1 Hypervolemia, unspecified time per day hypervolemia type carVEDilol (COREG) 6.25 mg Take 1 tablet 60 tablet 0 07/19/2019 tabletIndications: Essential (6.25 mg) by hypertension mouth 2 times a day with meals lisinopril Take 1 tablet 30 tablet 0 07/20/2019 (PRINIVIL,ZESTRIL) 30 MG (30 mg) by mouth tabletIndications: Essential 1 time per day hypertension traZODone (DESYREL) 50 mg Take 3 tablets 270 tablet 1 07/06/2019 tablet by mouth at bedtime gabapentin (NEURONTIN) 300 TAKE 1 CAPSULE 90 capsule 1 07/05/2019 mg capsuleIndications: BY MOUTH THREE Uncontrolled type 2 diabetes TIMES A DAY mellitus without complication, without long-term current use of insulin (HCC) glipiZIDE ER (GLUCOTROL XL) TAKE 1 TABLET (5 90 tablet 3 07/04/2019 5 mg extended release tablet MG) BY MOUTH 1 (24 hr)Indications: Heart TIME PER DAY failure with preserved ejection fraction, class III (HCC) blood glucose test strip USE TO TEST 100 each 06/29/2019 (BioAegis TherapeuticsTOUCH BLOOD SUGAR ULTRAA)Indications: Fasting DIRECTED TWICE A hyperglycemia DAY UNIFINE PENTIPS 31G X 8 MM USE DIRECTED 300 each 06/29/2019 ShortIndications: Controlled WITH INSULI N diabetes mellitus type 2 with complications (HCC) hydrALAZINE (APRESOLINE) 50 Take 1 tablet 270 tablet 0 06/15/20192019 mg tabletIndications: (50 mg) by mouth Essential hypertension 3 times a day insulin detemir (LEVEMIR 34 units in am 5 pen 0 06/09/2019 FLEXTOUCH) subcutaneous and 18 units at injection (pen)Indications: pm Uncontrolled type 2 diabetes mellitus with hyperglycemia (HCC) alendronate (FOSAMAX) 70 mg Take 1 tablet 4 tablet 12 05/25/20192019 tabletIndications: (70 mg) by mouth Osteopenia, unspecified 1 time a week location Take 1/2 hour before first food of the day. Do not lie down for 30 min. after taking. atorvaSTATin (LIPITOR) 20 mg Take 0.5 tablets 45 tablet 4 05/02/2019 tabletIndications: Pure (10 mg) by mouth hypercholesterolemia 1 time per day vitamin D3, cholecalciferol, Take 1,000 Units 0 1000 units tablet by mouth 1 time per day Coenzyme Q10 (CO Q10 PO) Take 1 tablet by 0 mouth 1 time per day blood glucose test strip 1 time a day as 1 box 0 07/22/2018 (ShizzlrUCH ULTRA 2) needed (daily w/DeviceIndications: Iron blood sugar deficiency anemia, checks) Use to unspecified iron deficiency test blood as anemia type directed. amLODIPine (NORVASC) 10 mg Take 10 mg by 3 10/15/2017 tablet mouth 1 time per day multivitamin (CENTRUM Take 1 tablet by 0 SILVER) tablet mouth 1 time per day. aspirin 81 mg enteric coated Take 81 mg by 0 tablet mouth 1 time per day. latanoprost (XALATAN) 0.005 Place 1 drop 0 % ophthalmic solution into both eyes every night at bedtime. documented as of this encounter Progress Notes Jemal Jackson MD - 07/18/2019 4:44 PM CDT INTERVAL HISTORY: No dizziness, orthostatics negative. CREATININE 1.43 REVIEW OF SYSTEMS: CONSTITUTIONAL: No fever. CARDIOVASCULAR: No chest pain. RESPIRATORY: No shortness of breath. ABDOMEN: No abdominal pain. EXTREMITIES: No pain. PHYSICAL EXAMINATION: VITAL SIGNS: Reviewed. GENERAL: Not in distress. CARDIOVASCULAR: S1, S2, present, regular. RESPIRATORY: Bilateral air entry present, clear. ABDOMEN: Soft, nontender. EXTREMITIES: Nontender. SKIN: Laceration over the head. RESULTS: Reviewed. ASSESSMENT AND PLAN: 1. Dizziness, resolved. orthostatic negative today. Echocardiogram showed ejection fraction of 60%. The patient having dilated IVC. We will encourage oral fluid intake. MRI brain showing no acute bleedor stroke. PT/OT on case. Low intensity setting versus assisted living facility with increased services. Metolazone on hold. Sinus bradycardia. Dose of coreg decreased to 6.25 mg po q d. Decrease bumexto 1 mg po q d 2. Hypertension. Continue Norvasc 10 mg daily, hydralazine 50 mg 3 times a day, lisinopril 40 mg daily, Coreg dose decreased to 6.25 mg 2 times a day. We will avoid aggressive control of blood pressure. Continue Bumex 1 mg daily. 3. Chronic diastolic congestive heart failure. Continue Bumex 1 mg daily. Metolazone on hold. 4. Depression. Continue trazodone 100 mg daily. 5. Diabetes. Continue Levemir 34 units subcutaneous in the a.m., 14 units subcutaneous at bedtime, Accu-Cheks with NovoLog sliding scale coverage, home dose of glipizide. 6. CKD stage III, stable. 7. DVT prophylaxis. Heparin 5000 units subcutaneous every 12 hours. 8. Glaucoma. Continue Xalatan eye drops. 9. Obstructive sleep apnea. Continue CPAP. 10. History of spinal stenosis. Continue gabapentin. 11. Hyponatremia, resolved. The patient is full code. NANTPJemal thomas MD - 07/17/2019 2:25 PM CDT INTERVAL HISTORY The patient denies any more dizziness. Blood sugars not well controlled, running high. Creatinine 1.36. MRI brain from July 15, 2019 showed no acute hemorrhage or infarction. Last heart rate 48. The patient was evaluated by occupational therapy, recommending low intensity setting versus increased services at assisted living facility. REVIEW OF SYSTEMS: CONSTITUTIONAL: No fever. CARDIOVASCULAR: No chest pain. RESPIRATORY: No shortness of breath. ABDOMEN: No abdominal pain. EXTREMITIES: No pain. PHYSICAL EXAMINATION: VITAL SIGNS: Reviewed. GENERAL: Not in distress. CARDIOVASCULAR: S1, S2, present, regular. RESPIRATORY: Bilateral air entry present, clear. ABDOMEN: Soft, nontender. EXTREMITIES: Nontender. SKIN: Laceration over the head. RESULTS: Reviewed. ASSESSMENT AND PLAN: 1. Dizziness, resolved. Patient was orthostatic positive. Echocardiogram showed ejection fraction of60%. The patient having dilated IVC. We will encourage oral fluid intake. Recheck orthostatics in the a.m. The patient is having sinus bradycardia. We will decrease dose of Coreg. MRA brain showing no acute bleed or stroke. PT/OT on case. Low intensity setting versus assisted living facility with increased services. Metolazone on hold. 2. Hypertension. Continue Norvasc 10 mg daily, hydralazine 50 mg 3 times a day, lisinopril 40 mg daily, Coreg dose decreased to 12.5 mg 2 times a day. We will avoid aggressive control of blood pressure. Continue Bumex 2 mg daily. 3. Chronic diastolic congestive heart failure. Continue Bumex 2 mg daily. 4. Depression. Continue trazodone 100 mg daily. 5. Diabetes. Continue Levemir 34 units subcutaneous in the a.m., 14 units subcutaneous at bedtime, Accu-Cheks with NovoLog sliding scale coverage. We will restart patient's home dose of glipizide. 6. CKD stage III, stable. 7. DVT prophylaxis. Heparin 5000 units subcutaneous every 12 hours. 8. Glaucoma. Continue Xalatan eye drops. 9. Obstructive sleep apnea. Continue CPAP. 10. History of spinal stenosis. Continue gabapentin. 11. Hyponatremia, resolved. Last sodium 136. The patient is full code. Job ID/Trans ID: [id number]/[facility] Doc ID: [id number] FIBERGLASS QUALITY TECHNICIAN FIBERGLASS QUALITY TECHNICIAN Beatriz Gallagher PHARM D - 07/17/2019 10:16 AM CDT07/17/2019 10:17 AM -- Patient was seen by the pharmacy med reconciliation team and HOME MEDICATIONS have been reconciled and updated to match the patient's home usage. Medication list updated using medication list faxed from [facility] in [place], [place]. Added: None Removed: Triamcinolone cream (course completed) Changed: Levemir - taking 34 units qam and 14 units qpm Trazodone - taking 2 tablets (100 mg) at bedtime Unable to verify if patient is taking alendronate as it was not on medication list provided. Beatriz Bradley PHARM Earl, BCPS Osbaldo Velazquez MD - 07/16/2019 4:05 PM CDT Hospital Progress Note Mayra Rey is a 84yr old female admitted on 07/15/2019. Assessment / Plan Principal Problem: Dizziness Active Problems: Essential hypertension 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, with long- term current use of insulin ([facility]) Chronic kidney disease Anemia PATRICIA (obstructive sleep apnea) Insomnia Hyponatremia Chronic diastolic CHF (congestive heart failure) ([facility]) Obesity with body mass index of 30.0-39.9 Fall at care home Hypokalemia Accident due to mechanical fall without injury Resolved Problems: * No resolved hospital problems. * 1. Chronic diastolic CHF - Last echocardiogram was performed in May 2018. It revealed ejection fraction of 60%. There was grade 2 LV diastolic dysfunction. Continue Bumex 2 mg daily along with Coreg. Strict intake/output and daily weight monitoring. - ECHO showed ejection fraction 60%, without regional motion abnormalities. She does have right ventricular overload with pulmonary artery hypertension which has been stable at 55-56 compared to May 2018. 2. Obstructive sleep apnea. On CPAP. 3. Type 2 diabetes mellitus, on insulin therapy - Continue Levemir 34 units in morning and 18 units at bedtime. We will start her on low-dose NovoLog correction-scale insulin. We will hold off on home dose glipizide. 4. Insomnia, on trazodone 100 mg daily. 5. Spinal stenosis, on gabapentin 300 mg t.i.d. 6. Hypertension - On hydralazine 150 mg t.i.d., Coreg dose decreased to 17.1875 mg twice daily in view of sinus bradycardia. On amlodipine 10 mg daily and lisinopril 40 mg daily. 7. Anemia - Hemoglobin is at baseline around 10.5. 8. Raccoon eyes pattern echymosis, no vision change, no pain No acute signs of bleeding noted. CT head and MRI brain negative for acute processes. Clinically stable. - Will repeat CBC in am 8. Mild hyponatremia, - Serum sodium is at 130, likely secondary to underlying heart failure vs diuresis.If continues to be persistently low will pursue further work-up. 9 . CKD Stage 3, stable DVT PROPHYLAXIS: Heparin. CODE STATUS: Full code. DISPOSITION: awaiting PT/OT evaluation, likely discharge back to her care home once medically stable. Likely tomorrow. HPI / History / ROS HPI No acute events since admission. Patient denies any headache, dizziness, lightheadedness. She doeshave R Vitelli chemosis, denies any vision changes, denies any puffiness or pressure in her eyes. Her echo was negative for acute processes. CT of the head and MRI of the brain is negative. There shorty slight hemoglobin drop. Will monitor her hemoglobin, will get PT and OT assessment. Likely discharge back to care home tomorrow Review of Systems Constitutional: Negative for chills, diaphoresis and fever. HENT: Negative for congestion, postnasal drip and rhinorrhea. No orbital pain, no vision change, no sensitivity to light Respiratory: Negative for cough, chest tightness, shortness of breath and wheezing. Cardiovascular: Negative for chest pain and leg swelling. Gastrointestinal: Negative for constipation, diarrhea, nausea and vomiting. Neurological: Negative for dizziness, weakness, light-headedness and headaches. Physical / Results Current Vital Signs Temp: 98.6 F (37 C) BP: 155/70 Weight: 82.2 kg (181 lb 3.2 oz) SpO2: 96 % Resp: 16 Pulse: 64 Current BMI (>50=increased risk): (!) 35.12 O2 Device: NC - no humidity O2 Flow Rate (L/min): 2 l/min Pain Ratin Physical Exam Constitutional: She appears well-developed and well-nourished. No distress. Cardiovascular: Normal rate and regular rhythm. Pulmonary/Chest: Effort normal and breath sounds normal. No stridor. No respiratory distress. She has no wheezes. Abdominal: Soft. Bowel sounds are normal. She exhibits no distension. There is no tenderness. Musculoskeletal: She exhibits no edema or deformity. Skin: She is not diaphoretic. Osbaldo Willoughby MD Internal Medicine documented in this encounter Plan of Treatment Date Type Specialty Care Team Description 09/14/2019 Office Visit CARDIOLOGY Vilma Yoder APRN-RAILROAD SUPERVISOR OF ENGINES [address] [place] [address] [phone] 06/27/2020 Office Visit SLEEP MEDICINE Willard Novoa MD [address] [place] [address] [phone] documented as of this encounter Goals Goal Patient Goal Associated Recent Patient-Stated? Author Type Problems Progress Blood Pressure Blood Pressure Essential 144/56 No Eliseoolie, < 140/80 hypertension (07/19/2019 Rosa Melgoza, 7:50 AM CDT) ALEXIS DIET - REDUCE Diet No Karthikeyan CALORIE INTAKE Karuna Shah PA-C LIFESTYLE - Exercise No ALEXANDR Napier, PHYSICAL PA-C ACTIVITY A1C < 7.0 Result No Shad Peralta RN documented as of this encounter Procedures Procedure Name Priority Date/Time Associated Comments Diagnosis GLUCOSE BY METER, Routine 07/19/2019 8:38 Results for this POCT AM CDT procedure are in the results section. MAGNESIUM Routine 07/19/2019 8:34 Results for this AM CDT procedure are in the results section. BASIC METABOLIC Routine 07/19/2019 8:34 Results for this PANEL AM CDT procedure are in the results section. GLUCOSE BY METER, Routine 07/18/2019 8:21 Results for this POCT PM CDT procedure are in the results section. GLUCOSE BY METER, Routine 07/18/2019 12:11 Results for this POCT PM CDT procedure are in the results section. GLUCOSE BY METER, Routine 07/18/2019 8:03 Results for this POCT AM CDT procedure are in the results section. MAGNESIUM Routine 07/18/2019 7:29 Results for this AM CDT procedure are in the results section. BASIC METABOLIC Routine 07/18/2019 7:29 Results for this PANEL AM CDT procedure are in the results section. GLUCOSE BY METER, Routine 07/18/2019 6:31 Results for this POCT AM CDT procedure are in the results section. GLUCOSE BY METER, Routine 07/17/2019 9:03 Results for this POCT PM CDT procedure are in the results section. GLUCOSE BY METER, Routine 07/17/2019 6:32 Results for this POCT PM CDT procedure are in the results section. GLUCOSE BY METER, Routine 07/17/2019 5:20 Results for this POCT PM CDT procedure are in the results section. GLUCOSE BY METER, Routine 07/17/2019 5:02 Results for this POCT PM CDT procedure are in the results section. GLUCOSE BY METER, Routine 07/17/2019 4:48 Results for this POCT PM CDT procedure are in the results section. GLUCOSE BY METER, Routine 07/17/2019 12:00 Results for this POCT PM CDT procedure are in the results section. COMPLETE BLOOD COUNT Routine 07/17/2019 7:22 Results for this WITHOUT DIFFERENTIAL AM CDT procedure are in the results section. RENAL FUNCTION PANEL Routine 07/17/2019 7:22 Results for this AM CDT procedure are in the results section. GLUCOSE BY METER, Routine 07/17/2019 7:07 Results for this POCT AM CDT procedure are in the results section. GLUCOSE BY METER, Routine 07/16/2019 8:49 Results for this POCT PM CDT procedure are in the results section. GLUCOSE BY METER, Routine 07/16/2019 5:29 Results for this POCT PM CDT procedure are in the results section. GLUCOSE BY METER, Routine 07/16/2019 12:20 Results for this POCT PM CDT procedure are in the results section. ECHO ADULT COMPLETE Routine 07/16/2019 10:56 Results for this AM CDT procedure are in the results section. GLUCOSE BY METER, Routine 07/16/2019 7:51 Results for this POCT AM CDT procedure are in the results section. LAB ONLY-COMPLETE Routine 07/16/2019 7:08 Results for this BLOOD COUNT WITH AM CDT procedure are in DIFFERENTIAL the results section. BASIC METABOLIC Routine 07/16/2019 7:08 Results for this PANEL AM CDT procedure are in the results section. COMPLETE BLOOD COUNT Routine 07/16/2019 7:08 Results for this WITH DIFFERENTIAL AM CDT procedure are in the results section. URINALYSIS Routine 07/15/2019 9:55 Results for this MICROSCOPIC PM CDT procedure are in the results section. URINALYSIS DIPSTICK Routine 07/15/2019 9:55 Results for this REFLEX TO PM CDT procedure are in MICROSCOPIC the results section. GLUCOSE BY METER, Routine 07/15/2019 8:12 Results for this POCT PM CDT procedure are in the results section. TROPONIN I Timed Routine 07/15/2019 7:06 Results for this PM CDT procedure are in the results section. GLUCOSE BY METER, Routine 07/15/2019 6:32 Results for this POCT PM CDT procedure are in the results section. MRI BRAIN WITHOUT Routine 07/15/2019 6:07 Results for this CONTRAST PM CDT procedure are in the results section. EKG STAT 07/15/2019 3:38 Results for this PM CDT procedure are in the results section. TROPONIN I Timed Routine 07/15/2019 3:15 Results for this PM CDT procedure are in the results section. HEPATIC FUNCTION STAT 07/15/2019 3:15 Results for this PANEL PM CDT procedure are in the results section. MAGNESIUM STAT 07/15/2019 3:15 Results for this PM CDT procedure are in the results section. RENAL FUNCTION PANEL STAT 07/15/2019 3:15 Results for this PM CDT procedure are in the results section. LAB ONLY-COMPLETE STAT 07/15/2019 3:14 Results for this BLOOD COUNT WITH PM CDT procedure are in DIFFERENTIAL the results section. COMPLETE BLOOD COUNT STAT 07/15/2019 3:14 Results for this WITH DIFFERENTIAL PM CDT procedure are in the results section. BRAIN NATRIURETIC Routine 07/15/2019 3:14 Results for this PEPTIDE PM CDT procedure are in the results section. documented in this encounter Results GLUCOSE BY METER, POCT (07/19/2019 8:38 AM CDT)Only the most recent of18 resultswithin the time period is included. Glucose POC 126 (H) 70 - 100 mg/dL [facility] Specimen Blood Performing Organization Address City/[facility] Centercode Phone Number [address] [phone] MAGNESIUM (07/19/2019 8:34 AM CDT)Only the most recent of3 resultswithin the time period is included. Magnesium 2.1 1.8 - 2.4 mg/dL [facility] Specimen Blood Performing Organization Address [facility] Centercoor Phone Number [address] [phone] BASIC METABOLIC PANEL (07/19/2019 8:34 AM CDT)Only the most recent of3 resultswithin the time period is included. Glucose 110 (H) 70 - 100 mg/dL [facility] BUN 39 (H) 6 - 22 mg/dL [facility] Creatinine 1.41 (H) 0.60 - 1.10 [facility] mg/dL [facility] BUN/Creatinine Ratio 27.7 (H) 10.0 - 25.0 [facility] Sodium 137 135 - 145 meq/L [facility] Potassium 4.1 3.5 - 5.3 meq/L [facility] Chloride 93 (L) 99 - 110 meq/L [facility] CO2 38 (H) 20 - 29 meq/L [facility] Anion Gap with K 10 6 - 20 meq/L [facility] Calcium 9.9 8.5 - 10.5 [facility] mg/dL [facility] Age 84 Years [facility] eGFR Non- 36 (L) >=60 [facility] Citizen [place] mL/min/1.73m2 [facility]INIC eGFR 43 (L) >=60 [facility] mL/min/1.73m2 [facility] Specimen Blood Narrative Performed At For patients with a GFR <45 a referral to Nephrology is [facility] recommended. Performing Organization Address City/[facility] Centercode Phone Number [facility] [address] [place] [address] RENAL FUNCTION PANEL (07/17/2019 7:22 AM CDT)Only the most recent of2 resultswithin the time period is included. Glucose 95 70 - 100 mg/dL [facility] BUN 31 (H) 6 - 22 mg/dL [facility] Creatinine 1.36 (H) 0.60 - 1.10 [facility] mg/dL [facility] BUN/Creatinine Ratio 22.8 10.0 - 25.0 [facility] Sodium 136 135 - 145 meq/L [facility] Potassium 3.8 3.5 - 5.3 meq/L [facility] Chloride 93 (L) 99 - 110 meq/L [facility] CO2 37 (H) 20 - 29 meq/L [facility] Anion Gap with K 10 6 - 20 meq/L [facility] Calcium 9.3 8.5 - 10.5 [facility] mg/dL [facility] Phosphorus 3.7 2.5 - 4.5 mg/dL [facility] Albumin 3.5 3.5 - 5.0 g/dL [facility] Corrected Calcium 9.7 8.5 - 10.5 [facility] mg/dL [facility] Age 84 Years [facility] eGFR Non- 37 (L) >=60 [facility] Citizen [place] mL/min/1.73m2 [facility] eGFR 45 (L) >=60 [facility] mL/min/1.73m2 [facility] Specimen Blood Narrative Performed At For patients with a GFR <45 a referral to Nephrology is [facility] recommended. Performing Organization Address City/[facility] Centercode Phone Number [address] [address] COMPLETE BLOOD COUNT WITHOUT DIFFERENTIAL (07/17/2019 7:22 AM CDT) WBC 7.0 4.0 - 11.0 K/uL [facility] RBC 3.62 (L) 3.80 - 5.30 M/uL [facility] Hemoglobin 9.5 (L) 11.5 - 15.8 g/dL [facility] Hematocrit 30.1 (L) 35.0 - 45.0 % [facility] MCV 83.1 80.0 - 98.0 fL [facility] MCH 26.2 25.5 - 34.0 pg [facility] MCHC 31.6 31.5 - 36.5 g/dL [facility] RDW-CV 14.4 11.5 - 15.5 % [facility] RDW-SD 43.8 35.5 - 50.0 fl [facility] Platelet Count 201 140 - 400 K/uL [facility] MPV 8.3 (L) 8.5 - 12.0 fL [facility] Specimen Blood Performing Organization Address City/State/Zipcode Phone Number [address] [address] ECHO ADULT COMPLETE (07/16/2019 10:56 AM CDT) Specimen Narrative Performed At [facility] Patient: MAYAR REY MR#:[id number] Exam Date:07/16/2019 Transthoracic Echocardiogram [facility] [address] [facility], [id number] : 141/58 mmHg HR:61 bpm : 1935Exam Location: Bedside Height:61.00 "( 154.9 cm) Age: 84 year(s)Patient Room: [facility] 1Weight:188 lbs.( 85.28 kg) Gender:FemalePatient Status: Inpatient BSA: 1.84 m2 Arranger Assembler:JOSEPH CAMPBELL RDCS (PE) Reading Physician:ZACK PAYNE MD Ordering Physician:HARESH REYES Procedure Indication(s): Presyncope, history of CHF Examination: TTE Complete 2D(m-mode), Complete Spectral Doppler, Color Doppler Conclusions Left Ventricle: Normal left ventricular systolic function. The ejection fraction is visually estimated to be 60 %. Mitral Valve: Mild mitral regurgitation. Right Ventricle: Normal right ventricular systolic function. Pulmonary artery systolic pressure is measured at 56 mmHg. Pulmonary Artery: Moderate pulmonary artery hypertension. Tricuspid Valve: Mild tricuspid regurgitation. IVC: Dilated IVC with normal respirophasic changes. Pericardium: No significant pericardial effusion. Comparison Study Comparison Date: 06/26/2018 Comparison Study: Transthoracic Echocardiogram There was no significant change from prior echo Findings Left Ventricle: Normal left ventricular size. Normal left ventricular wall thickness. Normal left ventricular systolic function. The ejection fraction is visually estimated to be 60 %. There are no left ventricular regional wall motion abnormalities. Doppler parameters are consistent with high left ventricular filling pressure. Left Atrium: Normal left atrial size. Aortic Valve: Tricuspid aortic valve with normal function. Mild aortic cuspal thickening. Trivial aortic regurgitation. No aortic stenosis. Aorta: The ascending aorta is normal in size measuring 36.0 mm. Mitral Valve: Normal mitral valve structure. Mild mitral regurgitation. No mitral stenosis. IAS: There is increased thickness of the atrial septum; consistent with lipomatous hypertrophy. No gross evidence of shunt flow seen; however the possibility of a PFO cannot be completely ruled out. Right Ventricle: Normal right ventricular size. Normal right ventricular systolic function. Normal right ventricular wall thickness. Systolic flattening of the ventricular septum consistent with RV pressure overload. Pulmonary artery systolic pressure is measured at 56 mmHg. TAPSE measures 21 mm. Tricuspid valve lateral annulus peak systolic velocity is 11.3 cm/sec. Pulmonary Artery: Moderate pulmonary artery hypertension. Right Atrium: Normal right atrial size. Tricuspid Valve: Normal tricuspid valve structure. Mild tricuspid regurgitation. Pulmonic Valve: Normal pulmonary valve structure. Trivial pulmonary regurgitation. No pulmonary stenosis. IVC: Dilated IVC with normal respirophasic changes. Pericardium: No significant pericardial effusion. No pleural effusion. Measurements Left Ventricle Aortic Valve Label ValueNormal Value Label Value Normal Value LVDd, 2D56.2 mm LVOT Vmax 115 cm/s LVDs, 2D38.3 mm AV Vmax 153 cm/s IVSd, 2D9 mm LVOTd 21 mm LVPWd, 2D 10.1 mm LVOT VTI28.3 cm FS, 2D31.85 % LVOT PGmax5 mmHg Cardiac Output5.98 L/min AV Clfll080 cm/s Cardiac Index 3.25 AV VTI38.5 cm L/min/m-sqAV PGmax 9 mmHg Right Ventricle AV PGmean 5 mmHg Label ValueNormal Value ALESSANDRO (Vmax)2.6 cm-sq TAPSE 21 mm AV Vmax, Hquthbv258 cm/s S' Tissue Doppler 11.3 Mitral Valve cm/secLabel ValueNormal Value Left Atrium MV E Vmax 101 cm/s Label ValueNormal Value MV A Vmax 112 cm/s LADs Long.54 mm MV E/A0.9 LA Volume Index 26.4 ml/m-sq MV E/E' lateral 15.6 Aorta MV E/E' uemnud72.5 Label ValueNormal Value MV Dec Time 190 ms Ao Asc36 mm MV E' septal4.9 cm/s Great Vessels MV PHT0.06 s Label ValueNormal Value MVA PHT 4 cm-sq PVein S 84 cm/s MV E' lateral 6.5 cm/s PVein D 66 cm/s Tricuspid Valve S/D Ratio 1.3 Label Value Normal Value Heart Rate TR Vmax 328 cm/s Label ValueNormal Value TR Pmax 48 mmHg Heart Rate61 bpm RA Pressure 8 mmHg RVSP56 mmHg Pulmonic Valve Label ValueNormal Value PV Vmax 96 cm/s PV PGmax4 mmHg at 01: 15 PM Procedure Note Interface, Inc Results No Pull Forward - 07/16/2019 1:16 PM CDT Patient: MAYRA REY MR#: [id number] Exam Date: 07/16/2019 [address]sthoracic [address]ocardi[address] [address] BP: 141/58 mmHg HR: 61 bpm : 1935 Exam Location: Bedside Height: 61.00 "(154.9 cm) Age: 84 year(s) Patient Room: [facility] 1 Weight: 188 lbs.(85.28 kg) Gender: Female Patient Status: Inpatient BSA: 1.84 m2 Arranger Assembler: JOSEPH CAMPBELL RDCS () Reading Physician: ZACK PAYNE MD Ordering Physician: HARESH REYES Procedure Indication(s): Presyncope, history of CHF Examination: TTE Complete 2D(m-mode), Complete Spectral Doppler, Color Doppler Conclusions Left Ventricle: Normal left ventricular systolic function. The ejection fraction is visually estimated to be 60 %. Mitral Valve: Mild mitral regurgitation. Right Ventricle: Normal right ventricular systolic function. Pulmonary artery systolic pressure is measured at 56 mmHg. Pulmonary Artery: Moderate pulmonary artery hypertension. Tricuspid Valve: Mild tricuspid regurgitation. IVC: Dilated IVC with normal respirophasic changes. Pericardium: No significant pericardial effusion. Comparison Study Comparison Date: 06/26/2018 Comparison Study: Transthoracic Echocardiogram There was no significant change from prior echo Findings Left Ventricle: Normal left ventricular size. Normal left ventricular wall thickness. Normal left ventricular systolic function. The ejection fraction is visually estimated to be 60 %. There are no left ventricular regional wall motion abnormalities. Doppler parameters are consistent with high left ventricular filling pressure. Left Atrium: Normal left atrial size. Aortic Valve: Tricuspid aortic valve with normal function. Mild aortic cuspal thickening. Trivial aortic regurgitation. No aortic stenosis. Aorta: The ascending aorta is normal in size measuring 36.0 mm. Mitral Valve: Normal mitral valve structure. Mild mitral regurgitation. No mitral stenosis. IAS: There is increased thickness of the atrial septum; consistent with lipomatous hypertrophy. No gross evidence of shunt flow seen; however the possibility of a PFO cannot be completely ruled out. Right Ventricle: Normal right ventricular size. Normal right ventricular systolic function. Normal right ventricular wall thickness. Systolic flattening of the ventricular septum consistent with RV pressure overload. Pulmonary artery systolic pressure is measured at 56 mmHg. TAPSE measures 21 mm. Tricuspid valve lateral annulus peak systolic velocity is 11.3 cm/sec. Pulmonary Artery: Moderate pulmonary artery hypertension. Right Atrium: Normal right atrial size. Tricuspid Valve: Normal tricuspid valve structure. Mild tricuspid regurgitation. Pulmonic Valve: Normal pulmonary valve structure. Trivial pulmonary regurgitation. No pulmonary stenosis. IVC: Dilated IVC with normal respirophasic changes. Pericardium: No significant pericardial effusion. No pleural effusion. Measurements Left Ventricle Aortic Valve Label Value Normal Value Label Value Normal Value LVDd, 2D 56.2 mm LVOT Vmax 115 cm/s LVDs, 2D 38.3 mm AV Vmax 153 cm/s IVSd, 2D 9 mm LVOTd 21 mm LVPWd, 2D 10.1 mm LVOT VTI 28.3 cm FS, 2D 31.85 % LVOT PGmax 5 mmHg Cardiac Output 5.98 L/min AV Vmean 107 cm/s Cardiac Index 3.25 AV VTI 38.5 cm L/min/m-sq AV PGmax 9 mmHg Right Ventricle AV PGmean 5 mmHg Label Value Normal Value ALESSANDRO (Vmax) 2.6 cm-sq TAPSE 21 mm AV Vmax, Caliper 153 cm/s S' Tissue Doppler 11.3 Mitral Valve cm/sec Label Value Normal Value Left Atrium MV E Vmax 101 cm/s Label Value Normal Value MV A Vmax 112 cm/s LADs Long. 54 mm MV E/A 0.9 LA Volume Index 26.4 ml/m-sq MV E/E' lateral 15.6 Aorta MV E/E' septal 20.5 Label Value Normal Value MV Dec Time 190 ms Ao Asc 36 mm MV E' septal 4.9 cm/s Great Vessels MV PHT 0.06 s Label Value Normal Value MVA PHT 4 cm-sq PVein S 84 cm/s MV E' lateral 6.5 cm/s PVein D 66 cm/s Tricuspid Valve S/D Ratio 1.3 Label Value Normal Value Heart Rate TR Vmax 328 cm/s Label Value Normal Value TR Pmax 48 mmHg Heart Rate 61 bpm RA Pressure 8 mmHg RVSP 56 mmHg Pulmonic Valve Label Value Normal Value PV Vmax 96 cm/s PV PGmax 4 mmHg at 01: 15 PM Performing Organization Address City/State/Zipcode Phone Number [facility] [place] LAB ONLY-COMPLETE BLOOD COUNT WITH DIFFERENTIAL (07/16/2019 7:08 AM CDT)Only the most recent of2 resultswithin the time period is included. WBC 6.9 4.0 - 11.0 K/uL [facility] RBC 3.50 (L) 3.80 - 5.30 [facility] M/uL [facility]INIC Hemoglobin 9.1 (L) 11.5 - 15.8 [facility] g/dL [facility] Hematocrit 28.7 (L) 35.0 - 45.0 % [facility] MCV 82.0 80.0 - 98.0 fL [facility] MCH 26.0 25.5 - 34.0 pg [facility] MCHC 31.7 31.5 - 36.5 [facility] g/dL [facility] RDW-CV 14.4 11.5 - 15.5 % [facility] RDW-SD 43.6 35.5 - 50.0 fl [facility] Platelet Count 185 140 - 400 K/uL [facility] MPV 8.5 8.5 - 12.0 fL [facility] Seg Neut Absolute 5.5 1.8 - 8.0 K/uL [facility] Lymphocytes Absolute 0.7 (L) 0.8 - 4.1 K/uL [facility] Monocytes Absolute 0.6 0.0 - 1.0 K/uL [facility] Eosinophils Absolute 0.1 0.0 - 0.7 K/uL [facility] Basophil Absolute 0.0 0.0 - 0.2 K/uL [facility] Immature Granulocyte 0.03 0.00 - 0.06 [facility] Absolute K/uL CLINIC Neutrophils Abs. 5,500 /uL [facility] (Segs and Bands) [facility] Neutrophils Percent 79.6 % [facility] Lymphocytes Percent 10.1 % [facility] Monocytes Percent 8.6 % [facility] Immature Granulocyte 0.4 % [facility] Percent CLINIC Eosinophils Percent 1.2 % [facility] Basophil Percent 0.1 % [facility] Nucleated RBC 0 /100 WBC's [facility] Specimen Blood Performing Organization Address City/[facility]/Zipcode Phone Number [address] [phone] URINALYSIS MICROSCOPIC (07/15/2019 9:55 PM CDT) WBC Urine Negative Negative, 0-5 [facility] /hpf CLINIC RBC Urine 0-2 /hpf Negative, 0-2 [facility] /hpf CLINIC Squamous Negative Negative, Occ [facility] Epithelial Cells (0-10) /lpf, Few CLINIC (11-20) /lpf Bacteria Occ (0-10) /hpf Negative [facility] (A) [facility] Specimen Urine Performing Organization Address [facility]/Zipcode Phone Number [address] [phone] URINALYSIS DIPSTICK REFLEX TO MICROSCOPIC (07/15/2019 9:55 PM CDT) Color Urine Straw Radha, Dark [facility] Yellow, Straw, CLINIC Yellow, Colorless Clarity Urine Clear Clear [facility] Glucose Urine Negative Negative [facility] Bilirubin Urine Negative Negative [facility] Ketones Urine Negative Negative, 5 [facility] mg/dL, 10 mg/dL [facility] Specific [place] 1.006 1.002 - 1.030 [facility] Blood Urine Negative Negative [facility] PH Urine 6.0 5.0, 5.5, 6.0, [facility] 6.5, 7.0, 7.5, CLINIC 8.0 Protein Urine 30 mg/dL (A) Negative [facility] Urobilinogen < 2 mg/dL < 2 mg/dL [facility] Nitrite Negative Negative [facility] Leukocyte Esterase Negative Negative [facility] Urine [facility] Specimen Urine Performing Organization Address [facility]/Zipcode Phone Number [address] [phone] TROPONIN I (07/15/2019 7:06 PM CDT)Only the most recent of2 resultswithin the time period is included. Troponin I 0.031 (H) 0.000 - 0.028 ng/mL [facility] Specimen Blood Performing Organization Address City/[facility] Cent[facility] Phone Number [address] [address] MRI BRAIN WITHOUT CONTRAST (07/15/2019 6:07 PM CDT) Specimen Narrative Performed At [facility] Patient Name: MAYRA REY Date of :1935 Procedure: MRI BRAIN WITHOUT CONTRAST Date of Service: 07/15/2019 EXAM: MRI BRAIN WITHOUT CONTRAST INDICATION:Dizziness, incoordination, fall with trauma to face and head COMPARISON: Multiple prior CT head examinations including the same day. TECHNIQUE: Multiplanar/multi-sequential noncontrast MRI of the brain performed according to standard protocol. FINDINGS: Global cerebral parenchymal atrophy with prominence of the sulci, ventricular system and extra-axial spaces. Scattered T2/FLAIR hyperintense subcortical and periventricular white matter foci are present, nonspecific and incompletely assessed without contrast. No acute parenchymal hemorrhage, intraventricular blood products, extra axial fluid collection or midline shift. Mineral deposition in the basal ganglia. Basal cisterns appear patent. Thin section imaging demonstrate normal appearance of the vestibulocochlear and facial nerves as they course from the root exit zone through the prepontine cistern, porus acusticus and internal auditory canals. Cochlear apparati, vestibule's and semicircular canals appear normal. Endolymphatic sac is not enlarged. No restricted diffusivity to indicate ischemic infarction.Sagittal imaging demonstrates normal appearance of the corpus callosum, optic chiasm, pituitary gland and pituitary infundibulum.No cerebellar tonsillar ectopia. 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 Bilateral globe surgeries. Retrobulbar contents are normal. Soft tissue hematoma overlying the frontal calvarium. Scant mucosal thickening in the paranasal sinuses. Gentle rightward curvature of the nasal septum. Minimal mucosal thickening in a few mastoid air cells. Limited assessment of the major arterial intracranial flow voids within the skull base are grossly normal. IMPRESSION: No acute intracranial hemorrhage or ischemic infarction. Scattered nonspecific white matter foci are statistically related to microvascular changes in a patient of this age though incompletely assessed without contrast. No comparative MR imaging to evaluate for temporal changes. Additional etiologies not excluded though considered less likely. Finalized by: Ankit Torres MD on 07/15/2019 11:00 PM CDT Patient/Procedure Information: [facility] MRN/MAYNOR: [id number] Order Number: [id number] Accession Number: [id number] Ordering Provider: HARESH REYES Authorizing Provider: HARESH REYES Procedure Note Interface, Radiantres - 07/15/2019 11:02 PM CDT Patient Name: MAYRA REY Date of : 1935 Procedure: MRI BRAIN WITHOUT CONTRAST Date of Service: 07/15/2019 EXAM: MRI BRAIN WITHOUT CONTRAST INDICATION:Dizziness, incoordination, fall with trauma to face and head COMPARISON: Multiple prior CT head examinations including the same day. TECHNIQUE: Multiplanar/multi-sequential noncontrast MRI of the brain performed according to standard protocol. FINDINGS: Global cerebral parenchymal atrophy with prominence of the sulci, ventricular system and extra-axial spaces. Scattered T2/FLAIR hyperintense subcortical and periventricular white matter foci are present, nonspecific and incompletely assessed without contrast. No acute parenchymal hemorrhage, intraventricular blood products, extra axial fluid collection or midline shift. Mineral deposition in the basal ganglia. Basal cisterns appear patent. Thin section imaging demonstrate normal appearance of the vestibulocochlear and facial nerves as they course from the root exit zone through the prepontine cistern, porus acusticus and internal auditory canals. Cochlear apparati, vestibule's and semicircular canals appear normal. Endolymphatic sac is not enlarged. No restricted diffusivity to indicate ischemic infarction. Sagittal imaging demonstrates normal appearance of the corpus callosum, optic chiasm, pituitary gland and pituitary infundibulum. No cerebellar tonsillar ectopia. 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 Bilateral globe surgeries. Retrobulbar contents are normal. Soft tissue hematoma overlying the frontal calvarium. Scant mucosal thickening in the paranasal sinuses. Gentle rightward curvature of the nasal septum. Minimal mucosal thickening in a few mastoid air cells. Limited assessment of the major arterial intracranial flow voids within the skull base are grossly normal. IMPRESSION: No acute intracranial hemorrhage or ischemic infarction. Scattered nonspecific white matter foci are statistically related to microvascular changes in a patient of this age though incompletely assessed without contrast. No comparative MR imaging to evaluate for temporal changes. Additional etiologies not excluded though considered less likely. Finalized by: Ankit Torres MD on 07/15/2019 11:00 PM CDT Patient/Procedure Information: [facility] MRN/MAYNOR: [id number] Order Number: [id number] Accession Number: [id number] Ordering Provider: HARESH REYES Authorizing Provider: HARESH REYES Performing Organization Address [facility] Phone Number [phone] EKG (07/15/2019 3:38 PM CDT) EKG [facility] Sinus bradycardia with 1st degree A-V block Left axis deviation Left bundle branch block Abnormal ECG Ventricular Rate: 56 BPM Atrial Rate: 56 BPM P-R Interval: 266 ms QRS Duration: 134 ms Q-T Interval: 476 ms QTc Calculation(Bazett): 459 ms Calculated P [place]: 56 degrees Calculated R [place]: -53 degrees Calculated T [place]: 72 degrees Specimen Narrative Performed At Performing Organization Address [facility] Centercode Phone Number [facility] HEPATIC FUNCTION PANEL (07/15/2019 3:15 PM CDT) Alkaline Phosphatase 115 30 - 150 U/L [facility] AST - SGOT 20 0 - 35 U/L [facility] ALT - SGPT 24 0 - 55 U/L [facility] Bilirubin Total 0.6 0.2 - 1.2 mg/dL [facility] Bilirubin Indirect 0.3 0.0 - 0.8 mg/dL [facility] Bilirubin Direct 0.3 0.0 - 0.4 mg/dL [facility] Albumin 3.9 3.5 - 5.0 g/dL [facility] Protein Total 6.6 6.0 - 8.2 g/dL [facility] Specimen Blood Performing Organization Address City/[facility]/Zipcode Phone Number [address] [phone] BRAIN NATRIURETIC PEPTIDE (07/15/2019 3:14 PM CDT) BNP 288 (H) 0 - 100 pg/mL [facility] Specimen Blood Performing Organization Address [facility] Centercoor Phone Number [address] [phone] documented in this encounter Visit Diagnoses Diagnosis Dizziness - Primary Dizziness and giddiness 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 stage I through stage IV, or unspecified Essential hypertension Unspecified essential hypertension Hypervolemia, unspecified hypervolemia type Chronic diastolic CHF (congestive heart failure) ([facility]) Chronic diastolic heart failure Chronic kidney disease Chronic kidney disease, unspecified Hyponatremia Hyposmolality and/or hyponatremia PATRICIA (obstructive sleep apnea) Obstructive sleep apnea (adult) (pediatric) 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, with long-term current use of insulin ([facility]) Anemia Anemia, unspecified Fall at care home Unspecified fall Obesity with body mass index of 30.0-39.9 Insomnia Insomnia, unspecified Hypokalemia Hypopotassemia Accident due to mechanical fall without injury documented in this encounter Discharge Diagnoses Not on filedocumented in this encounter Administered Medications Medication Order MAR Action Action Date Dose Rate Site acetaminophen (TYLENOL) tablet 650 mg 650 mg, Oral, Every four hours prn, Starting 07/15/19 at 1512, Until Discontinued, mild pain, If inadequate response in 60 minutes, may proceed to next choice option or if no other options, contact provider., amLODIPine (NORVASC) tablet 10 mg Given 07/19/2019 8:43 AM CDT 10 mg 10 mg, Oral, DAILY, First dose on Wed07/16/19 at 0900, Until Discontinued, Hold for SBP less than 110, Given 07/18/2019 8:20 AM CDT 10 mg Given 07/17/2019 8:36 AM CDT 10 mg aspirin enteric coated tablet 81 mg Given 07/19/2019 8:43 AM CDT 81 mg 81 mg, Oral, DAILY, First dose on Wed07/16/19 at 0900, Until Discontinued, Tablet should be swallowed whole and not be divided, crushed or chewed., Given 07/18/2019 8:20 AM CDT 81 mg Given 07/17/2019 8:36 AM CDT 81 mg atorvaSTATin (LIPITOR) tablet 10 mg Given 07/19/2019 8:43 AM CDT 10 mg 10 mg, Oral, DAILY, First dose on Wed07/16/19 at 0900, Until Discontinued Given 07/18/2019 8:20 AM CDT 10 mg Given 07/17/2019 8:36 AM CDT 10 mg bisacodyl (DULCOLAX) suppository 10 mg 10 mg, Rectal, One time a day prn, Starting 07/15/19 at 1512, Until Discontinued, constipation, Use SECOND for constipation. If patient cannot take oral medications, use first for constipation., bumetanide (BUMEX) tablet 1 mg Given 07/19/2019 8:43 AM CDT 1 mg 1 mg, Oral, Daily, First dose on Wed07/19/19 at 0900, Until Discontinued, Hold for SBP less than 100, carbohydrate 15 g 15 g, Oral, PRN per parameter, Starting 07/15/19 at 1509, Until Discontinued , low blood glucose, Give 15 grams of carbohydrate if blood glucose is less than 70 mg/dL, patient is responsive and able to take food or oral meds. Recheck blood glucose in 15 minutes. Repeat 1 time and call MD. If recheck is greater than 70 mg/dL and able to take food or oral meds, give 15 gram carbohydrate if meal or snack due in more than an hour. Serve meal or snack if due in less than 1 hour. See hypoglycemia treatment on cardex. Sources of 15 grams carbohydrate: a.4 oz of fruit juice or b.4 oz of soda pop (NOT diet) or c.1 tablespoon of honey, carVEDilol (COREG) tablet 6.25 mg Given 07/19/2019 8:43 AM CDT 6.25 mg 6.25 mg, Oral, Two times a day with meals, First dose on Wed07/18/19 at 1730, Until Discontinued, Take with food. Hold for SBP less than 90 Hold for HR less than 50, Given 07/18/2019 6:21 PM CDT 6.25 mg dextrose chewable tablet 16 g 16 g (4 tablet), Oral, PRN per parameter, Starting 07/15/19 at 1509, Until Discontinued, low blood glucose, Chew before swallowing. Give 15 gram of carbohydrate if blood glucose is less than 70 mg/dL, patient is responsive and able to take food or oral meds. Recheck blood glucose in 15 minutes. Repeat 15 gram carbohydrate if recheck is less than 70 mg/dL and call MD. If recheck is greater than 70 mg/dL and able to take food or oral meds, give 15 gram carbohydrate if meal or snack due in more than an hour. Serve meal or snack if due in less than 1 hour. See hypoglycemia treatment on cardex. (Sources of 15 gram carbohydrate: 4 oz fruit juice or 4 oz soda pop (NOT diet) or 1 tablespoonful honey or 4 glucose tablets )., docusate sodium (THEREVAC-SB MINI;ENEMEEZ MINI) 283 MG enema 1 enema 1 enema, Rectal, One time a day prn, Starting 07/15/19 at 1512, Until Discontinued, constipation, Use THIRD for constipation - if no BM 8 hours after ducolax suppository. If patient cannot take oral medications, use second for constipation., gabapentin (NEURONTIN) capsule 300 mg Given 07/19/2019 8:52 AM CDT 300 mg 300 mg, Oral, Three times a day, First dose on Wed07/15/19 at 1515, Until Discontinued Given 07/18/2019 8:23 PM CDT 300 mg Given 07/18/2019 2:29 PM CDT 300 mg glipiZIDE ER (GLUCOTROL XL) extended release Given 07/19/2019 8:43 AM CDT 5 mg tablet (24 hr) 5 mg 5 mg, Oral, Daily, First dose on Wed07/18/19 at 0900, Until Discontinued, Tablet should not be crushed or chewed., Given 07/18/2019 8:20 AM CDT 5 mg heparin (porcine) injection solution Given 07/18/2019 8:22 PM CDT 5,000 Units 5,000 Units 5,000 Units, Subcutaneous, Every twelve hours, First dose on 07/15/19 at 2100, Until Discontinued, 1 mL Given 07/18/2019 8:22 AM CDT 5,000 Units Given 07/17/2019 8:19 PM CDT 5,000 Units hydrALAZINE (APRESOLINE) tablet 50 mg Given 07/19/2019 8:43 AM CDT 50 mg 50 mg, Oral, Three times a day, First dose on 07/15/19 at 2100, Until Discontinued, Hold for SBP less than 110, Given 07/18/2019 8:22 PM CDT 50 mg Given 07/18/2019 2:29 PM CDT 50 mg insulin aspart (NovoLOG) SQ correction Given 07/18/2019 12:14 PM CDT 2 Units scale (Adult) 2-8 Units, Subcutaneous, Three times a day with meals, First dose on 07/15/19 at 1730, Until Discontinued, 0.08 mL, Patient is eating LOW DOSE insulin aspart (NovoLOG) subcutaneous correction scale Premeal Blood Glucose=Insulin Dose 150-199 2 units 200-249 3 units 250-299 5 units 300-349 7 units Over 349 8 units, Given 07/17/2019 12:28 PM CDT 5 Units Given 07/16/2019 1:29 PM CDT 3 Units insulin detemir (LEVEMIR) SQ injection Given 07/19/2019 9:00 AM CDT 34 Units 34 Units, Subcutaneous, Daily, First dose on Wed07/16/19 at 0900, Until Discontinued, 0.34 mL, Do not hold. Call provider if blood glucose less than 100 mg/dl, if patient changed to NPO or if tube feedings stopped., Given 07/18/2019 8:22 AM CDT 34 Units Given 07/17/2019 8:36 AM CDT 34 Units insulin detemir (LEVEMIR) SQ injection Given 07/18/2019 8:22 PM CDT 14 Units 14 Units, Subcutaneous, Bedtime, First dose on 07/17/19 at 2100, Until Discontinued, 0.14 mL, Do not hold. Call provider if blood glucose less than 100 mg/dl, if patient changed to NPO or if tube feedings stopped., latanoprost (XALATAN) 0.005 % ophthalmic Given 07/18/2019 8:22 PM CDT 1 drop solution 1 drop 1 drop, Both eyes, Bedtime, First dose on 07/15/19 at 2100, Until Discontinued, 2.5 mL Given 07/17/2019 10:27 PM CDT 1 drop Given 07/16/2019 9:49 PM CDT 1 drop lisinopril (PRINIVIL, ZESTRIL) tablet 30 mg Given 07/19/2019 8:43 AM CDT 30 mg 30 mg, Oral, DAILY, First dose on 07/19/19 at 0900, Until Discontinued, Hold for SBP less than 100, melatonin tablet 3 mg 3 mg, Oral, Bedtime prn, Starting 07/15/19 at 1512, Until Discontinued, other (Specify), insomnia, If inadequate response in 60 minutes, may proceed to next choice option or, if no other options, contact provider., ondansetron (ZOFRAN ODT) dispersible tablet 4 mg 4 mg, Oral, Every four hours prn, Starting 07/15/19 at 1512, Until Discontinued, nausea, vomiting, Use FIRST. If ineffective after 30 minutes use ondansetron IV , ondansetron (ZOFRAN) injection solution 4 mg 4 mg, IV, Every four hours prn, Starting 07/15/19 at 1512, Until Discontinued, nausea, vomiting, 2 mL, Use SECOND. If ineffective after 30 minutes and ondansetron ODT used, call physician for alternative. If preference is to further dilute for IV administration: First draw up patient-specific dose, then dilute to 10 mL with 0.9% sodium chloride., senna-docusate sodium (SENOKOT-S;PERICOLACE) tablet 2 tablet 2 tablet, Oral, Two times a day prn, Starting 07/15/19 at 1512, Until Discontinued, constipation, Use FIRST for constipation unless patient cannot take oral medications., sodium chloride 0.9% flush (adult) 10 mL Given 07/18/2019 8:23 PM CDT 10 mL 10 mL, IV, Two times a day and prn, First dose on 07/15/19 at 2100, Until Discontinued, 10 mL, Flush IV line as scheduled and as often as necessary before and after meds., Given 07/18/2019 8:23 AM CDT 10 mL Given 07/17/2019 8:19 PM CDT 10 mL traZODone (DESYREL) tablet 100 mg Given 07/18/2019 8:22 PM CDT 100 mg 100 mg, Oral, Daily, First dose on 07/15/19 at 2100, Until Discontinued Given 07/17/2019 10:27 PM CDT 100 mg Given 07/16/2019 9:50 PM CDT 100 mg triamcinolone acetonide (KENALOG,ARISTOCORT) 0.1 Given 07/19/2019 8:46 AM CDT % cream Apply externally, Two times a day, First dose on 07/15/19 at 2100, Until Discontinued Given 07/18/2019 8:22 PM CDT Given 07/18/2019 8:23 AM CDT Medication Order MAR Action Action Date Dose Rate Site bumetanide (BUMEX) tablet 2 mg Given 07/18/2019 8:20 AM CDT 2 mg 2 mg, Oral, Daily, First dose on 07/16/19 at 0900, Until Discontinued, Hold for SBP less than 100, Given 07/17/2019 8:36 AM CDT 2 mg Given 07/16/2019 8:17 AM CDT 2 mg carVEDilol (COREG) tablet 12.5 mg Given 07/18/2019 8:21 AM CDT 12.5 mg 12.5 mg, Oral, Two times a day with meals, First dose on 07/17/19 at 1730, Until Discontinued, Take with food. Hold for SBP less than 90 Hold for HR less than 50 Take with food., Given 07/17/2019 4:49 PM CDT 12.5 mg carVEDilol (COREG) tablet 17.1875 mg Given 07/17/2019 8:35 AM CDT 18.75 mg 17.1875 mg (rounded from 17.25 mg), Oral, Two times a day with meals, First dose on 07/15/19 at 1730, Until Discontinued, Take with food. Hold for SBP less than 90 Hold for HR less than 50, Given 07/16/2019 5:32 PM CDT 17.1875 mg Given 07/16/2019 8:18 AM CDT 17.1875 mg insulin detemir (LEVEMIR) SQ injection Given 07/16/2019 9:50 PM CDT 18 Units 18 Units, Subcutaneous, Bedtime, First dose on 07/15/19 at 2100, Until Discontinued, 0.18 mL, Do not hold. Call provider if blood glucose less than 100 mg/dl, if patient changed to NPO or if tube feedings stopped., Given 07/15/2019 8:13 PM CDT 18 Units lisinopril (PRINIVIL, ZESTRIL) tablet 40 mg Given 07/18/2019 8:20 AM CDT 40 mg 40 mg, Oral, DAILY, First dose on 07/16/19 at 0900, Until Discontinued, Hold for SBP less than 100, Given 07/17/2019 8:36 AM CDT 40 mg Given 07/16/2019 8:17 AM CDT 40 mg potassium chloride (K-TAB) CR tablet 40 mEq Given 07/16/2019 8:16 AM CDT 40 mEq 40 mEq, Oral, Two times a day with meals, 2 doses, First dose on 07/15/19 at 1730, Last dose on 07/16/19 at 0800, Tablet should not be crushed or chewed., Given 07/15/2019 6:16 PM CDT 40 mEq documented in this encounter
[2019-07-20] MEDS: Insulin Glarg,Human.Rec.Analog 100 UNIT/ML ML SUBCUT SCH ×2 (08:30→21:20)
[2019-07-20] MEDS: Aspirin 81 MG Tab.Chew PO SCH (08:32)
[2019-07-20] MEDS: Cholecalciferol (Vitamin D3) 25 MCG Tab PO SCH (08:34)
[2019-07-20] MEDS: Multivitamin Tab PO SCH (08:35)
[2019-07-20] MEDS: Bumetanide 1 MG Tab PO SCH (08:59)
[2019-07-20] MEDS: amLODIPine 5 MG Tab PO SCH (08:59)
[2019-07-20] MEDS: Carvedilol 6.25 MG Tab PO SCH ×2 (09:00→17:27)
[2019-07-20] MEDS: glipiZIDE 5 MG Tab.ER PO SCH (09:01)
[2019-07-20] MEDS: Lisinopril 10 MG Tab PO SCH (09:01)
[2019-07-20] MEDS: Gabapentin 300 MG Cap PO SCH ×3 (09:02→17:28)
[2019-07-20] MEDS: Latanoprost 0.005% Ophth Soln 2.5 ML Bottle EYEBOTH SCH (21:21)
[2019-07-20] MEDS: traZODone 50 MG Tab PO SCH (21:22)
[2019-07-20] MEDS: atorvaSTATin 10 MG Tab PO SCH (21:22)
[2019-07-21] MEDS: Carvedilol 6.25 MG Tab PO SCH ×2 (08:05→17:21)
[2019-07-21] MEDS: Aspirin 81 MG Tab.Chew PO SCH (08:06)
[2019-07-21] MEDS: hydrALAZINE 50 MG Tab PO SCH ×3 (08:06→20:35)
[2019-07-21] MEDS: Bumetanide 1 MG Tab PO SCH (08:06)
[2019-07-21] MEDS: glipiZIDE 5 MG Tab.ER PO SCH (08:07)
[2019-07-21] MEDS: Gabapentin 300 MG Cap PO SCH ×3 (08:08→17:22)
[2019-07-21] MEDS: amLODIPine 5 MG Tab PO SCH (08:09)
[2019-07-21] MEDS: Lisinopril 10 MG Tab PO SCH (08:11)
[2019-07-21] MEDS: Cholecalciferol (Vitamin D3) 25 MCG Tab PO SCH (08:16)
[2019-07-21] MEDS: Multivitamin Tab PO SCH (08:16)
[2019-07-21] MEDS: Insulin Glarg,Human.Rec.Analog 100 UNIT/ML ML SUBCUT SCH ×2 (08:19→20:46)
[2019-07-21] MEDS: atorvaSTATin 10 MG Tab PO SCH (20:49)
[2019-07-21] MEDS: traZODone 50 MG Tab PO SCH (20:49)
[2019-07-21] MEDS: Latanoprost 0.005% Ophth Soln 2.5 ML Bottle EYEBOTH SCH (20:50)
[2019-07-22] MEDS: Carvedilol 6.25 MG Tab PO SCH ×2 (08:02→17:17)
[2019-07-22] MEDS: Bumetanide 1 MG Tab PO SCH (08:03)
[2019-07-22] MEDS: Aspirin 81 MG Tab.Chew PO SCH (08:03)
[2019-07-22] MEDS: hydrALAZINE 50 MG Tab PO SCH ×3 (08:03→20:38)
[2019-07-22] MEDS: glipiZIDE 5 MG Tab.ER PO SCH (08:04)
[2019-07-22] MEDS: Gabapentin 300 MG Cap PO SCH ×3 (08:05→17:16)
[2019-07-22] MEDS: amLODIPine 5 MG Tab PO SCH (08:05)
[2019-07-22] MEDS: Lisinopril 10 MG Tab PO SCH (08:06)
[2019-07-22] MEDS: Cholecalciferol (Vitamin D3) 25 MCG Tab PO SCH (08:07)
[2019-07-22] MEDS: Multivitamin Tab PO SCH (08:07)
[2019-07-22] MEDS: Insulin Glarg,Human.Rec.Analog 100 UNIT/ML ML SUBCUT SCH ×2 (08:08→20:39)
[2019-07-22] MEDS: atorvaSTATin 10 MG Tab PO SCH (20:42)
[2019-07-22] MEDS: traZODone 50 MG Tab PO SCH (20:42)
[2019-07-22] MEDS: Latanoprost 0.005% Ophth Soln 2.5 ML Bottle EYEBOTH SCH (20:43)
[2019-07-23] MEDS: Carvedilol 6.25 MG Tab PO SCH ×2 (08:11→17:19)
[2019-07-23] MEDS: hydrALAZINE 50 MG Tab PO SCH ×3 (08:12→20:35)
[2019-07-23] MEDS: Aspirin 81 MG Tab.Chew PO SCH (08:12)
[2019-07-23] MEDS: Bumetanide 1 MG Tab PO SCH (08:12)
[2019-07-23] MEDS: glipiZIDE 5 MG Tab.ER PO SCH (08:13)
[2019-07-23] MEDS: Gabapentin 300 MG Cap PO SCH ×3 (08:14→17:20)
[2019-07-23] MEDS: amLODIPine 5 MG Tab PO SCH (08:14)
[2019-07-23] MEDS: Lisinopril 10 MG Tab PO SCH (08:15)
[2019-07-23] MEDS: Cholecalciferol (Vitamin D3) 25 MCG Tab PO SCH (08:16)
[2019-07-23] MEDS: Multivitamin Tab PO SCH (08:16)
[2019-07-23] MEDS: Insulin Glarg,Human.Rec.Analog 100 UNIT/ML ML SUBCUT SCH ×2 (08:17→20:39)
[2019-07-23] MEDS: Acetaminophen 325 MG Tab PO PRN (11:19)
[2019-07-23] MEDS: traZODone 50 MG Tab PO SCH (20:42)
[2019-07-23] MEDS: atorvaSTATin 10 MG Tab PO SCH (20:42)
[2019-07-23] MEDS: Latanoprost 0.005% Ophth Soln 2.5 ML Bottle EYEBOTH SCH (20:43)
[2019-07-24] MEDS: Insulin Glarg,Human.Rec.Analog 100 UNIT/ML ML SUBCUT SCH ×2 (07:52→21:04)
[2019-07-24] MEDS: Carvedilol 6.25 MG Tab PO SCH ×2 (07:54→17:19)
[2019-07-24] MEDS: Aspirin 81 MG Tab.Chew PO SCH (07:55)
[2019-07-24] MEDS: hydrALAZINE 50 MG Tab PO SCH ×3 (07:55→21:01)
[2019-07-24] MEDS: glipiZIDE 5 MG Tab.ER PO SCH (07:56)
[2019-07-24] MEDS: Bumetanide 1 MG Tab PO SCH (07:56)
[2019-07-24] MEDS: amLODIPine 5 MG Tab PO SCH (07:57)
[2019-07-24] MEDS: Gabapentin 300 MG Cap PO SCH ×3 (07:57→17:20)
[2019-07-24] MEDS: Lisinopril 10 MG Tab PO SCH (07:58)
[2019-07-24] MEDS: Multivitamin Tab PO SCH (07:59)
[2019-07-24] MEDS: Cholecalciferol (Vitamin D3) 25 MCG Tab PO SCH (08:00)
--- NOTE | 2019-07-24 10:40 | PCM.SN ---
- Free Text/Narrative Note: Patient is having low blood sugar readings in the am. She is currently on lantus 34 units in the AM, along with 18 units at HS. We will decrease the HS dose to 10units at HS and continue the AM dose. We will monitor her levels as she was previously on Levemir, prior to [facility] stay.
[2019-07-24] MEDS: atorvaSTATin 10 MG Tab PO SCH (21:02)
[2019-07-24] MEDS: traZODone 50 MG Tab PO SCH (21:03)
[2019-07-24] MEDS: Latanoprost 0.005% Ophth Soln 2.5 ML Bottle EYEBOTH SCH (21:04)
[2019-07-25] MEDS: Carvedilol 6.25 MG Tab PO SCH ×2 (07:50→17:41)
[2019-07-25] MEDS: Multivitamin Tab PO SCH (07:50)
[2019-07-25] MEDS: glipiZIDE 5 MG Tab.ER PO SCH (07:50)
[2019-07-25] MEDS: hydrALAZINE 50 MG Tab PO SCH ×3 (07:50→20:57)
[2019-07-25] MEDS: Aspirin 81 MG Tab.Chew PO SCH (07:50)
[2019-07-25] MEDS: Lisinopril 10 MG Tab PO SCH (07:51)
[2019-07-25] MEDS: Bumetanide 1 MG Tab PO SCH (07:51)
[2019-07-25] MEDS: amLODIPine 5 MG Tab PO SCH (07:51)
[2019-07-25] MEDS: Gabapentin 300 MG Cap PO SCH ×3 (07:52→17:41)
[2019-07-25] MEDS: Insulin Glarg,Human.Rec.Analog 100 UNIT/ML ML SUBCUT SCH ×2 (07:52→20:58)
[2019-07-25] MEDS: Cholecalciferol (Vitamin D3) 25 MCG Tab PO SCH (07:53)
[2019-07-25] MEDS: atorvaSTATin 10 MG Tab PO SCH (21:01)
[2019-07-25] MEDS: traZODone 50 MG Tab PO SCH (21:01)
[2019-07-25] MEDS: Latanoprost 0.005% Ophth Soln 2.5 ML Bottle EYEBOTH SCH (21:02)
[2019-07-26] MEDS: hydrALAZINE 50 MG Tab PO SCH ×3 (07:47→21:04)
[2019-07-26] MEDS: Bumetanide 1 MG Tab PO SCH (07:48)
[2019-07-26] MEDS: Aspirin 81 MG Tab.Chew PO SCH (07:48)
[2019-07-26] MEDS: Carvedilol 6.25 MG Tab PO SCH ×2 (07:49→17:37)
[2019-07-26] MEDS: Insulin Glarg,Human.Rec.Analog 100 UNIT/ML ML SUBCUT SCH ×2 (07:50→21:06)
[2019-07-26] MEDS: glipiZIDE 5 MG Tab.ER PO SCH (07:50)
[2019-07-26] MEDS: amLODIPine 5 MG Tab PO SCH (07:53)
[2019-07-26] MEDS: Gabapentin 300 MG Cap PO SCH ×3 (07:53→17:38)
[2019-07-26] MEDS: Lisinopril 10 MG Tab PO SCH (07:54)
[2019-07-26] MEDS: Cholecalciferol (Vitamin D3) 25 MCG Tab PO SCH (07:55)
[2019-07-26] MEDS: Multivitamin Tab PO SCH (07:55)
[2019-07-26] MEDS: traZODone 50 MG Tab PO SCH (21:03)
[2019-07-26] MEDS: atorvaSTATin 10 MG Tab PO SCH (21:05)
[2019-07-26] MEDS: Latanoprost 0.005% Ophth Soln 2.5 ML Bottle EYEBOTH SCH (21:05)
[2019-07-27] MEDS ORDERED: Alendronate 70 MG Tab PO SCH (06:00)
[2019-07-27] MEDS: Carvedilol 6.25 MG Tab PO SCH (07:22)
[2019-07-27] MEDS: hydrALAZINE 50 MG Tab PO SCH ×2 (07:23→13:31)
[2019-07-27] MEDS: Aspirin 81 MG Tab.Chew PO SCH (07:24)
[2019-07-27] MEDS: Bumetanide 1 MG Tab PO SCH (07:24)
[2019-07-27] MEDS: amLODIPine 5 MG Tab PO SCH (07:25)
[2019-07-27] MEDS: glipiZIDE 5 MG Tab.ER PO SCH (07:25)
[2019-07-27] MEDS: Lisinopril 10 MG Tab PO SCH (07:26)
[2019-07-27] MEDS: Multivitamin Tab PO SCH (07:27)
[2019-07-27] MEDS: Cholecalciferol (Vitamin D3) 25 MCG Tab PO SCH (07:28)
[2019-07-27] MEDS: Insulin Glarg,Human.Rec.Analog 100 UNIT/ML ML SUBCUT SCH (07:34)
[2019-07-27] MEDS: Gabapentin 300 MG Cap PO SCH ×2 (07:37→11:51)
--- NOTE | 2019-07-27 11:50 | PCM.DCSUM1 ---
Discharge Summary - Hospital Course Free Text/Narrative:: Patient is here for a SWB stay for PT and OT rehabilitation after hospitalization for dizziness and hypertension. She has been doing well wtih therapy and is ready for discharge. She has had no issues with dizziness or elevated blood pressures during stay. Ongoing issue for her is constipation, which can continue to be monitored and medication therapy adjusted at the [facility], where she resides. She denies any pain and has no concerns about discharge. - Discharge Data Discharge Date: 07/27/19 Discharge Disposition: Home, Self-Care 01 Condition: Good - Discharge Diagnosis/Problem(s) (1) Hypertension SNOMED Code(s): 66715980 ICD Code: I10 - ESSENTIAL (PRIMARY) HYPERTENSION Status: Acute Current Visit: Yes Problem Details: Blood pressures have remained stable on current medications. We will continue these dosages on discharge. Qualifiers: Hypertension type: essential hypertension Qualified Code(s): I10 - Essential (primary) hypertension (2) Weakness SNOMED Code(s): 08231280 ICD Code: R53.1 - WEAKNESS Status: Acute Priority: High Current Visit: No Problem Details: patient has completed PT/OT and is ready for discharge. She denies any weakness or dizziness. She is able to complete her ADls independently without difficulty. (3) Chronic kidney disease SNOMED Code(s): 120369263 ICD Code: N18.9 - CHRONIC KIDNEY DISEASE, UNSPECIFIED Status: Acute Priority: Medium Current Visit: No Problem Details: Had hypokalemia while in the hospital. we will monitor labs due to CKD and CHF. Patient on bumex daily at this time. Qualifiers: Chronic kidney disease stage: unspecified stage Qualified Code(s): N18.9 - Chronic kidney disease, unspecified - Patient Summary/Data Consults: Consultations 07/19/19 11:58 Consult to Physical Therapy [PT Evaluation and Treatment] [CONS] Routine 07/19/19 11:59 Consult to Occupational Therapy [OT Evaluation and Treatment] [CONS] Routine - Patient Instructions Diet: Usual Diet as Tolerated, Diabetic Diet Activity: As Tolerated Showering/Bathing: May Shower - Discharge Plan *PRESCRIPTION DRUG MONITORING PROGRAM REVIEWED*: Not Applicable *COPY OF PRESCRIPTION DRUG MONITORING REPORT IN PATIENT KRYSTYNA: Not Applicable Prescriptions/Med Rec: Alendronate Sodium [Fosamax] 70 mg PO WEEKLY #4 tablet amLODIPine Besylate [Norvasc] 10 mg PO DAILY #30 tablet atorvaSTATin Calcium [Lipitor] 10 mg PO BEDTIME #30 tablet Bumetanide [Bumex] 1 tab PO DAILY #30 tablet Carvedilol 6.25 mg PO BIDMEALS #60 tablet Gabapentin [Neurontin] 300 mg PO TID #90 capsule glipiZIDE [Glipizide ER] 5 mg PO DAILY #30 tab.er.24 hydrALAZINE [Apresoline] 50 mg PO TID #90 tablet Insulin Glarg,Human.Rec.Analog [Lantus] 10 unit SUBCUT BEDTIME #1 ml Insulin Glarg,Human.Rec.Analog [Lantus] 34 unit SUBCUT QAM #1 ml Latanoprost [Xalatan 0.005% Ophth Soln] 1 drop EYEBOTH BEDTIME #1 bottle Lisinopril 30 mg PO DAILY #30 tablet Home Medications: Home Meds Aspirin [Halfprin] 81 mg PO DAILY 06/24/18 [History] Multivit-Min/FA/Lycopene/Lut [Centrum Silver Tablet] 1 tab PO DAILY 06/24/18 [ History] traZODone HCl [Trazodone HCl] 3 tab PO BEDTIME 06/24/18 [History] Ubidecarenone [Coenzyme Q10] 100 mg PO DAILY #30 cap 07/14/18 [Rx] Cholecalciferol (Vitamin D3) [Vitamin D3] 1,000 units PO DAILY 07/15/19 [History ] Acetaminophen [Tylenol] 325 mg PO Q4H PRN tablet 07/27/19 [Rx] Alendronate Sodium [Fosamax] 70 mg PO WEEKLY #4 tablet 07/27/19 [Rx] Bumetanide [Bumex] 1 tab PO DAILY #30 tablet 07/27/19 [Rx] Carvedilol 6.25 mg PO BIDMEALS #60 tablet 07/27/19 [Rx] Docusate Sodium [Colace] 100 mg PO DAILY #30 cap 07/27/19 [Rx] Gabapentin [Neurontin] 300 mg PO TID #90 capsule 07/27/19 [Rx] Insulin Glarg,Human.Rec.Analog [Lantus] 10 unit SUBCUT BEDTIME #1 ml 07/27/19 [ Rx] Insulin Glarg,Human.Rec.Analog [Lantus] 34 unit SUBCUT QAM #1 ml 07/27/19 [Rx] Latanoprost [Xalatan 0.005% Ophth Soln] 1 drop EYEBOTH BEDTIME #1 bottle [Rx] Lisinopril 30 mg PO DAILY #30 tablet 07/27/19 [Rx] amLODIPine Besylate [Norvasc] 10 mg PO DAILY #30 tablet 07/27/19 [Rx] atorvaSTATin Calcium [Lipitor] 10 mg PO BEDTIME #30 tablet 07/27/19 [Rx] glipiZIDE [Glipizide ER] 5 mg PO DAILY #30 tab.er.24 07/27/19 [Rx] hydrALAZINE [Apresoline] 50 mg PO TID #90 tablet 07/27/19 [Rx] Oxygen Therapy Mode: Room Air - Discharge Summary/Plan Comment DC Time >30 min.: Yes - General Info Date of Service: 07/27/19 Admission Dx/Problem (Free Text: Dizziness, Weakness and Hypertension Functional Status: Reports: Pain Controlled - Review of Systems General: Reports: No Symptoms HEENT: Reports: No Symptoms Pulmonary: Reports: No Symptoms Cardiovascular: Reports: No Symptoms Gastrointestinal: Reports: No Symptoms Genitourinary: Reports: No Symptoms Musculoskeletal: Reports: No Symptoms Skin: Reports: No Symptoms Neurological: Reports: No Symptoms Psychiatric: Reports: No Symptoms - Patient Data Vitals - Most Recent: Last Vital Signs Temp 98.1 F 07/27/19 08:00 Pulse 53 L 07/27/19 08:00 Resp 20 07/27/19 08:00 BP 132/60 07/27/19 08:00 Pulse Ox 95 07/27/19 08:00 Weight - Most Recent: 185 lb I&O - Last 24 hours: Intake & Output 07/26/19 07/27/19 07/27/19 22:59 06:59 14:59 Intake Total 340 1000 300 Balance 340 1000 300 Lab Results - Last 24 hrs: Laboratory Results - last 24 hr 07/26/19 07/26/19 07/26/19 Range/Units 11:55 17:41 20:47 POC Glucose 133 H 182 H 282 H* (65-110) mg/dl 07/27/19 Range/Units 07:31 POC Glucose 81 (65-110) mg/dl Med Orders - Current: Current Medications Acetaminophen (Tylenol) 325 mg PO Q4H PRN PRN Reason: Pain Last Admin: 07/23/19 11:19 Dose: 325 mg Alendronate Sodium (Fosamax) 70 mg PO Q7D@0600 [facility] Last Admin: 07/27/19 05:51 Dose: 70 mg Amlodipine Besylate (Norvasc) 10 mg PO DAILY [facility] Last Admin: 07/27/19 07:25 Dose: 10 mg Aspirin (Aspirin) 81 mg PO DAILY [facility] Last Admin: 07/27/19 07:24 Dose: 81 mg Atorvastatin Calcium (Lipitor) 10 mg PO BEDTIME [facility] Last Admin: 07/26/19 21:05 Dose: 10 mg Bumetanide (Bumex) 1 mg PO DAILY [facility] Last Admin: 07/27/19 07:24 Dose: 1 mg Carvedilol (Coreg) 6.25 mg PO BIDMEALS [facility] Last Admin: 07/27/19 07:22 Dose: 6.25 mg Cholecalciferol (Vitamin D3) 25 mcg PO DAILY [facility] Last Admin: 07/27/19 07:28 Dose: 25 mcg Coenzyme Q10 (Coenzyme Q10) 100 mg PO DAILY [facility] Last Admin: 07/27/19 07:24 Dose: 100 mg Gabapentin (Neurontin) 300 mg PO TID [facility] Last Admin: 07/27/19 07:37 Dose: 300 mg Glipizide (Glucotrol Xl) 5 mg PO WITHBREAKFAST [facility] Last Admin: 07/27/19 07:25 Dose: 5 mg Hydralazine HCl (Apresoline) 50 mg PO TID@0800,1400,2000 [facility] Last Admin: 07/27/19 07:23 Dose: 50 mg Insulin Glargine (Lantus) 34 unit SUBCUT QAM [facility] Last Admin: 07/27/19 07:34 Dose: 34 units Insulin Glargine (Lantus) 10 unit SUBCUT BEDTIME [facility] Last Admin: 07/26/19 21:06 Dose: 10 units Latanoprost (Xalatan 0.005% Ophth Soln) 0 ml EYEBOTH BEDTIME [facility] Last Admin: 07/26/19 21:05 Dose: 1 drop Lisinopril (Prinivil) 30 mg PO DAILY [facility] Last Admin: 07/27/19 07:26 Dose: 30 mg Multivitamins/Minerals/Vitamin C (Tab-A-Anson) 1 tab PO DAILY [facility] Last Admin: 07/27/19 07:27 Dose: 1 tab Senna/Docusate Sodium (Senna Plus) 1 tab PO DAILY [facility] Last Admin: 07/27/19 07:27 Dose: 1 tab Trazodone HCl (Trazodone) 150 mg PO BEDTIME [facility] Last Admin: 07/26/19 21:03 Dose: 150 mg Discontinued Medications Cholecalciferol (D-Vi-Emmanuelle Drops) 1,000 units PO DAILY [facility] Last Admin: 07/20/19 09:03 Dose: Not Given Hydralazine HCl (Apresoline) 50 mg PO Q8H [facility] Last Admin: 07/20/19 04:55 Dose: 50 mg Insulin Glargine (Lantus) 18 unit SUBCUT BEDTIME [facility] Last Admin: 07/23/19 20:39 Dose: 18 units - Exam General: Reports: Alert, Oriented HEENT: Reports: Pupils Equal, Pupils Reactive Neck: Reports: Supple Lungs: Reports: Clear to Auscultation, Normal Respiratory Effort Cardiovascular: Reports: Regular Rate, Regular Rhythm GI/Abdominal Exam: Normal Bowel Sounds, Non-Tender (Female) Exam: Deferred Rectal (Female) Exam: Deferred Extremities: Normal Inspection, Normal Range of Motion, No Pedal Edema Skin: Reports: Warm, Intact Psy/Mental Status: Reports: Alert, Normal Affect, Normal Mood
[2019-07-27 13:42] VITALS: BP 137/61
== END 2019-07-27 13:45 | disposition home or self-care (01) | DRG 293 ==
LOC: UNDOADMIN 11:41 → LL.SWG 11:41
PROVIDERS: ADMIT Nurse Practitioner; ATTEND Family Medicine
DX: I13.0 Hypertensive heart and chronic kidney disease with heart failure and stage 1 through stage 4 chronic kidney disease, or unspecified chronic kidney disease (principal); I42.9 Cardiomyopathy, unspecified; K59.00 Constipation, unspecified; N18.9 Chronic kidney disease, unspecified; H40.9 Unspecified glaucoma; H91.90 Unspecified hearing loss, unspecified ear; H54.7 Unspecified visual loss; I25.10 Atherosclerotic heart disease of native coronary artery without angina pectoris; I50.9 Heart failure, unspecified; E78.00 Pure hypercholesterolemia, unspecified; I73.9 Peripheral vascular disease, unspecified; I44.0 Atrioventricular block, first degree; J44.9 Chronic obstructive pulmonary disease, unspecified; G47.30 Sleep apnea, unspecified; E11.22 Type 2 diabetes mellitus with diabetic chronic kidney disease; E11.40 Type 2 diabetes mellitus with diabetic neuropathy, unspecified; G89.29 Other chronic pain; M54.9 Dorsalgia, unspecified; M54.2 Cervicalgia; M19.90 Unspecified osteoarthritis, unspecified site; F32.9 Major depressive disorder, single episode, unspecified; F41.9 Anxiety disorder, unspecified; E66.9 Obesity, unspecified; Z98.890 Other specified postprocedural states; Z68.34 Body mass index [BMI] 34.0-34.9, adult; Z88.8 Allergy status to other drugs, medicaments and biological substances; Z79.899 Other long term (current) drug therapy; Z79.82 Long term (current) use of aspirin; Z79.4 Long term (current) use of insulin; Z98.49 Cataract extraction status, unspecified eye; Z79.01 Long term (current) use of anticoagulants
CPT/HCPCS: 82962; 97110-GO; 97110-GP; 97161-GP; 97165-GO; 97530-GO; 97530-GP; A9270-GY; J1815-GY

== ENCOUNTER 2019-09-13 12:50 | Emergency (ER) | payer MEDICARE, BC, MEDICAID ==
--- NOTE | 2019-09-13 13:07 | EDM.PDOC ---
ED HPI GENERAL MEDICAL PROBLEM - General Chief Complaint: Laceration Stated Complaint: fall, head laceration Time Seen by Provider: 09/13/19 13:00 Source of Information: Reports: Patient, EMS, Old Records ([facility] EMR. No paper hospital chart available.), Other ([facility] EMR). 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 Note the patient apparently tripped while using her walker when coming back to her room from the dining room when she landed on her left head resulting in a laceration with some moderate bleeding. Patient has had a history of recurrent falls, including a significant fall on 07/15/19, which did require transfer to [facility] in [place] at that time. She denies any loss of consciousness, headaches, visual changes, nausea, change in mental status, paresthesias, neurological deficits, neck/back pain, or other complaints or injuries. The patient denies any chest pain/pressure, heart flutter, dizziness, orthostasis, orthopnea, diaphoresis, recent decreased exercise tolerance, or any other anginal-type symptoms. No recent history of abdominal pain, heartburn , diarrhea, melena, gross hematochezia, or any food intolerance, including fatty foods, etc.. The patient also denies any recent fever, cough, wheezing, dyspnea, etc.. Onset: Today, Sudden Onset Date: 09/13/19 Onset Time: 12:30 Duration: Constant Location: Reports: Head. Denies: Face, Neck, Chest, Abdomen, Back, Pelvis, Upper Extremity, Left, Upper Extremity, Right, Lower Extremity, Left, Lower Extremity, Right, Radiates to Quality: Reports: Burning, Same as Previous Episode Severity: Moderate Improves with: Reports: None Worsens with: Reports: None Context: Reports: Trauma (As above). 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) Left Forehead Pain Score (Numeric/FACES): 5 - Related Data Allergies Allergy/AdvReac Type Severity Reaction Status Date / Time furosemide [From Lasix] Allergy Cannot Verified 09/13/19 13:07 Remember hydrochlorothiazide Allergy Cannot Verified 09/13/19 13:07 Remember triamterene Allergy Cannot Verified 09/13/19 13:07 Remember Home Meds: Home Meds Aspirin [Halfprin] 81 mg PO DAILY 06/24/18 [History] Multivit-Min/FA/Lycopene/Lut [Centrum Silver Tablet] 1 tab PO DAILY 06/24/18 [ History] traZODone HCl [Trazodone HCl] 3 tab PO BEDTIME 06/24/18 [History] Ubidecarenone [Coenzyme Q10] 100 mg PO DAILY #30 cap 07/14/18 [Rx] Cholecalciferol (Vitamin D3) [Vitamin D3] 1,000 units PO DAILY 07/15/19 [History ] Acetaminophen [Tylenol] 325 mg PO Q4H PRN tablet 07/27/19 [Rx] Bumetanide [Bumex] 1 tab PO DAILY #30 tablet 07/27/19 [Rx] Carvedilol 6.25 mg PO BIDMEALS #60 tablet 07/27/19 [Rx] Docusate Sodium [Colace] 100 mg PO DAILY #30 cap 07/27/19 [Rx] Gabapentin [Neurontin] 300 mg PO TID #90 capsule 07/27/19 [Rx] Insulin Glarg,Human.Rec.Analog [Lantus] 10 unit SUBCUT BEDTIME #1 ml 07/27/19 [ Rx] Latanoprost [Xalatan 0.005% Ophth Soln] 1 drop EYEBOTH BEDTIME #1 bottle [Rx] Lisinopril 30 mg PO DAILY #30 tablet 07/27/19 [Rx] amLODIPine Besylate [Norvasc] 10 mg PO DAILY #30 tablet 07/27/19 [Rx] atorvaSTATin Calcium [Lipitor] 10 mg PO BEDTIME #30 tablet 07/27/19 [Rx] glipiZIDE [Glipizide ER] 5 mg PO DAILY #30 tab.er.24 07/27/19 [Rx] hydrALAZINE [Apresoline] 50 mg PO TID #90 tablet 07/27/19 [Rx] Alendronate Sodium [Fosamax] 70 mg PO WEEKLY 09/13/19 [History] Insulin Glarg,Human.Rec.Analog [Lantus] 24 unit SUBCUT QAM 09/13/19 [History] Past Medical History HEENT History: Reports: Cataract, Glaucoma, Hard of Hearing, Impaired Vision, Macular Degeneration, Other (See Below). Denies: Allergic Rhinitis, Retinal Detachment Other HEENT History: Mild to moderate bilateral presbycusis. Diabetic retinopathy. Patient wears glasses. Complete dentures uppers and lowers. Cardiovascular History: Reports: Arrhythmia, CAD, Cardiomyopathy, Heart Failure , Heart Murmur, High Cholesterol, Hypertension, Pulmonary Hypertension, PVD, Other (See Below). Denies: Afib, Aneurysm, Blood Clots/VTE/DVT, DE, PTCA, Syncope Other Cardiovascular History: Moderate pulmonary hypertension and mild mitral and tricuspid valve insufficiency by echocardiogram in June 2019 as below. First Degree AV block diagnosed on 06/24/18. PVCs, PACs, and first-degree AV block. Progressive mild left ventricular hypertrophy with mild aortic valve insufficiency and history of recurrent CHF with decreased ejection fraction by echocardiogram in 2016 with last echocardiogram in 2018 showing an ejection fraction of 60%. Recurrent d-dimer elevation with negative workup as below.. Mild carotid occlusive disease by last carotid artery Doppler studies on 18. Grade 2 diastolic dysfunction by echocardiogram. Respiratory History: Reports: Bronchitis, Recurrent, COPD, Pneumonia, Recurrent , Sleep Apnea, Other (See Below). Denies: Intubation, Difficult, Intubation, Previous, Pneumothorax Other Respiratory History: Patient is noncompliant with her CPAP at this time, although she was previously compliant. Gastrointestinal History: Reports: Chronic Constipation, Other (See Below). Denies: Celiac Disease, Cholelithiasis, Chronic Diarrhea, Gastritis, GERD, GI Bleed, Hepatitis, Inflammatory Bowel Disease, Irritable Bowel Syndrome, Jaundice , Pancreatitis Other Gastrointestinal History: Benign hepatic cysts. Genitourinary History: Reports: Acute Renal Failure, Chronic Renal Insuffiency, Diabetic Nephropathy, Other (See Below). Denies: Dialysis, Renal Calculus, STD , Urinary Incontinence, UTI, Recurrent Other Genitourinary History: Grade 3 diabetic nephropathy. Stable benign left renal angiomyolipoma. 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 Musculoskeletal History: Reports: Arthritis, Back Pain, Chronic, Neck Pain, Chronic, Osteoarthritis, Osteoporosis, Other (See Below). Denies: Amputation, Gout, RA, SLE Other Musculoskeletal History: Spinal stenosis. Neurological History: Reports: Concussion, Headaches, Chronic, Head Trauma, Migraines, Neuropathy, Diabetic, Neuropathy, Peripheral, Vertigo, Other (See Below). Denies: Alzheimers Disease, Cerebral Aneurysms, CVA, MS, Parkinson's, Seizure, TIA Other Neuro History: Recurrent falls with significant head injury and possible concussion on 07/15/19. Mild cerebromicrovascular disease by . Psychiatric History: Reports: Anxiety, Depression, Suicide Attempt, Suicidal Ideation. Denies: Abuse, Victim of, ADD, ADHD, Addiction, PTSD Other Psychiatric History: History of suicidal ideation (see nurses noted from ). Chronic insomnia. Endocrine/Metabolic History: Reports: Diabetes, Type II, IDDM, Obesity/BMI 30+, Osteopenia, Osteoporosis, Other (See Below). Denies: Diabetes, Gestational, Diabetes, Type I, Diabetes Mellitus, Type 3c, Hypothyroidism Other Endocrine/Metabolic History: Hypercalcemia. Hyponatremia. Hypokalemia. Hematologic History: Reports: Blood Transfusion(s). Denies: Anemia, Iron Deficiency Immunologic History: Reports: None. Denies: AIDS, HIV, SLE Oncologic (Cancer) History: Denies: Basal Cell Carcinoma, Breast, Cervix, Colon , Hodgkin's Lymphoma, Leukemia, Lymphoma, Malignant Melanoma, Non-Hodgkin's Lymphoma, Ovarian, Squamous Cell Carcinoma, Uterine Dermatologic History: Reports: Seborrheic Dermatitis, Other (See Below). Denies : Eczema, Psoriasis Other Dermatologic History: Seborrheic Keratosis. - Infectious Disease History Infectious Disease History: Reports: Chicken Pox, Measles, Mumps. Denies: C- Difficile, Meningitis, Mononucleosis, MRSA, Rheumatic Fever, Rubella, Scarlet Fever, Shingles, TB, VRE - Past Surgical History Head Surgeries/Procedures: Reports: None HEENT Surgical History: Reports: Cataract Surgery, Oral Surgery, Other (See Below). Denies: Adenoidectomy, Eye Surgery, Laser Surgery, LASIK, Myringotomy w Tube(s), Naso-Sinus Surgery, Tonsillectomy Other HEENT Surgeries/Procedures: Bilateral cataract surgery in her early 70s. Complete teeth extraction with complete dentures uppers and lowers. Cardiovascular Surgical History: Reports: None. Denies: Varicose Respiratory Surgical History: Reports: None. Denies: Thoracentesis GI Surgical History: Reports: Colonoscopy. Denies: Appendectomy, Cholecystectomy, EGD, Hernia, Abdominal, Hernia, Inguinal, Hernia Repair/Other, Polypectomy Female Surgical History: Denies: Breast Biopsy, D&C, Hysterectomy, Oophorectomy, Salpingo-Oophorectomy, Tubal Ligation Endocrine Surgical History: Reports: None. Denies: Thyroid Biopsy Neurological Surgical History: Reports: None, Other (See Below) Other Neurological Surgeries/Procedures: Possible back surgery of unknown type in 2005 per records from [facility], although the patient is unaware of this operation. Musculoskeletal Surgical History: Reports: Joint Replacement, Knee Replacement, Other (See Below). Denies: Arthroscopic Procedure, Carpal Tunnel, Ganglion Cyst , Hip Replacement, ORIF Other Musculoskeletal Surgeries/Procedures:: Left total knee arthroplasty in 2001 with right total knee arthroplasty in 2004. Oncologic Surgical History: Reports: None Dermatological Surgical History: Reports: None - Past Imaging History Past Imaging History: Reports: Cardiac Echo (Last echocardiogram in May 2018 with ejection fraction of 60% per records from [facility] with previous evaluation on 08/09/17 with ejection fraction of 4550 percent and findings as above.), Carotid US (08/10/18 and 12/14/14.), CAT Scan (CT of the head and C-spine on . CT of the head on 08/10/18 and 10/21/16. CTA of the chest on 06/24/18.), DEXA Scan (Last on 05/23/19.), Mammogram (Last on 09/11/19.), MRI (MRI of the brain on 07/15/19. Abdominal on 10/23/14 and 04/17/14.), PFT (05/01/13), Ultrasound ( Renal ultrasound on 02/28/16.), Venous Doppler (Venous Doppler studies of the right leg on 11/30/18, 11/14/18 and 08/04/17.) Social & Family History - Family History Cardiac: Reports: Aneurysm, Hypertension, Other (See Below). Denies: Afib, Arrhythmia, Blood Clots/VTE/DVT, CAD, Heart Failure, High Cholesterol, DE, Pacemaker, Syncope Other Cardiac Family History: Brother and sister with hypertension. Cousins 2 with aneurysm including a cerebral aneurysm Neurological: Reports: Alzheimers Disease, CVA, Dementia, Other (See Below) Other Neurological Family History: Brother with organic brain syndrome/Alzheimer 's disease. Cousin with fatal cerebral aneurysm. Oncologic: Reports: Breast, Ovarian, Prostate, Other (See Below). Denies: Cervix, Colon, Hodgkin's Lymphoma, Leukemia, Lymphoma, Non-Hodgkin's Lymphoma, Skin, Uterine Other Oncologic Family History: Brother with prostate cancer. Mother with fatal ovarian cancer at age 79. Sister with fatal breast cancer at age 73. - Tobacco Use Smoking Status *Q: Former Smoker Tobacco Use Within Last Twelve Months: No Years of Tobacco use: 21 Packs/Tins Daily: 0.1 Packs/Tins Daily Comment: Smoked between ages 16 and 37. Used Tobacco, but Quit: Yes Smoking Cessation Information Provided To Patient: No Second Hand Smoke Exposure: No Second Hand Smoke Education Provided: No - Caffeine Use Caffeine Use: Reports: Soda (1 soda every 3 weeks.). Denies: Coffee, Energy Drinks, Tea - Alcohol Use Alcohol Use History: No Days Per Week of Alcohol Use: 0 Number of Drinks Per Day: 0 Number of Drinks Per Day Comment: No previous DWIs, problems with alcohol abuse , etc. 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 ED EXAM, SKIN/RASH Exam: See Below Exam Limited By: No Limitations General Appearance: Alert, WD/WN, No Apparent Distress Eye Exam: Bilateral Eye: EOMI, Normal Fundi, Normal Inspection (Patient wearing glasses. No nystagmus), PERRL Ears: Normal External Exam, Normal Canal, Normal TMs. No: Hearing Loss (Mild to moderate bilateral presbycusis) Nose: Normal Inspection, Normal Mucosa, No Blood Throat/Mouth: Normal Inspection, Normal Lips, Normal Teeth (Complete dentures uppers and lowers), Normal Gums, Normal Oropharynx, Normal Voice, No Airway Compromise. No: Dysphagia, Perioral Cyanosis Head: Other (3 cm in length laceration over the left superior frontal and parietal regions with no crepitation, deformity, or sign of fracture, foreign body, etc.). No: Facial Swelling, Facial Tenderness, Sinus Tenderness Neck: Supple, Non-Tender, Full Range of Motion, Carotid Bruit (Mild bilateral carotid bruits). No: Lymphadenopathy (L), Lymphadenopathy (R), Thyromegaly Respiratory/Chest: No Respiratory Distress, Lungs Clear, Normal Breath Sounds, No Accessory Muscle Use, Chest Non-Tender. No: Pleural Rub, Retractions Cardiovascular: Normal Peripheral Pulses, No Gallop, No JVD, No Murmur, No Rub, Extra Beats (Occasional extrasystoles with occasional PACs and PVCs by desk monitor. Regular rate.). No: No Edema (Dependent edema as below), Gallop/S3, Gallop/S4, Friction Rub Peripheral Pulses: 2+: Radial (L), Radial (R), Dorsalis Pedis (L), Dorsalis Pedis (R) GI/Abdominal: Normal Bowel Sounds, Soft, Non-Tender, No Organomegaly, No Distention, No Abnormal Bruit, No Mass, Other (Obese). No: Guarding (Female) Exam: Deferred Rectal (Female) Exam: Deferred Back Exam: Full Range of Motion, Other (Mild kyphosis). No: CVA Tenderness (L) , CVA Tenderness (R), Muscle Spasm, Paraspinal Tenderness, Vertebral Tenderness Extremities: Normal Range of Motion, Non-Tender, Normal Capillary Refill, Pedal Edema (Trace bilateral pedal/pretibial edema with patient wearing support stockings). No: No Pedal Edema, Alejandra's Sign Neurological: Alert, Oriented, CN II-XII Intact, Normal Cognition, Normal Gait, Normal Reflexes (Negative Babinski's, finger to nose, and pronator rotation tests. No evidence of facial paresis, tongue deviation, orthostasis, etc.. Excellent reverse thought processes.), No Motor/Sensory Deficits Psychiatric: Normal Affect, Normal Mood Skin: Warm, Ecchymosis (Mild ecchymosis in abdominal region likely secondary to insulin injections), Wound/Incision (Laceration as above), Other (Moderate diffuse seborrheic keratosis). No: Diaphoretic, Petechiae Location, Skin: Head. No: Face, Neck, Chest, Abdomen, Back Characteristics: Linear, Other (As above) Associated features: Tenderness (Mild localized) Lymphatic: No Adenopathy ED SKIN PROCEDURES - Laceration/Wound Repair Left Anterior Head Appearance: Superficial, Linear Distal NVT: Neuro & Vascular Intact Anesthetic Type: Local Local Anesthesia - Lidocaine (Xylocaine): 1% Plain Local Anesthetic Volume: Other (6 mL) Skin Prep: Providone-Iodine (Betadine) Saline Irrigation (cc's): 0 Exploration/Debridement/Repair: Wound Explored, In a Bloodless Field, Explored to Base, No Foreign Material Found Closed with: Sutures Lac/Wound length In cm: 3.0 Suture Size: 4-0 # of Sutures: 5 Suture Type: Nylon, Interrupted, Simple Drain Placement: No Sterile Dressing Applied: Nurse Tetanus Status Addressed: Yes Complications: No Course - Vital Signs Last Recorded V/S: Last Vital Signs Temp 36.7 C 09/13/19 12:57 Pulse 69 09/13/19 14:58 Resp 21 H 09/13/19 14:58 BP 179/64 H 09/13/19 14:58 Pulse Ox 99 09/13/19 14:58 Vital Signs - 24 hr 09/13/19 09/13/19 09/13/19 12:57 13:10 13:22 Temperature [ 36.7 C Oral] Pulse, 63 66 67 Peripheral [ Right Pulse Oximetry] Respiratory 20 19 Rate Blood Pressure 184/70 H 177/66 H 170/72 H [Left Upper Arm ] O2 Sat by Pulse 98 98 99 Oximetry 09/13/19 09/13/19 09/13/19 13:37 13:52 14:07 Temperature [ Oral] Pulse, 67 69 69 Peripheral [ Right Pulse Oximetry] Respiratory 14 16 16 Rate Blood Pressure 174/63 H 171/68 H 162/69 H [Left Upper Arm ] O2 Sat by Pulse 100 99 98 Oximetry 09/13/19 14:58 Temperature [ Oral] Pulse, 69 Peripheral [ Right Pulse Oximetry] Respiratory 21 H Rate Blood Pressure 179/64 H [Left Upper Arm ] O2 Sat by Pulse 99 Oximetry - Orders/Labs/Meds Orders: Active Orders 24 hr Category Date Time Status Cardiac Monitoring [RC] . DIRECTED Care 09/13/19 13:15 Active Obtain Past Medical Record [OM.PC] Routine Oth 09/13/19 13:05 Active Labs: None Meds: Medications Discontinued Medications Generic Name Dose Route Start Last Admin Trade Name Edis PRN Reason Stop Dose Admin Lidocaine HCl 5 ml 09/13/19 13:27 09/13/19 14:05 Xylocaine-Mpf 1% INJECT 09/13/19 13:28 5 ml ONETIME ONE Administration Lidocaine HCl 5 ml 09/13/19 13:27 09/13/19 14:05 Xylocaine-Mpf 1% INJECT 09/13/19 13:28 5 ml ONETIME ONE Administration Neomycin/Polymyxin/Bacitracin 1 each 09/13/19 13:23 09/13/19 14:05 Triple Antibiotic Oint TOP 09/13/19 13:24 1 each ONETIME ONE Administration - Radiology Interpretation Free Text/Narrative:: quality assurance monitor final showed an overall normal sinus rhythm with occasional PACs, PVCs with one couplet noted, however no other significant arrhythmia. Average heart rate in the 60s to 70s. Departure - Departure Time of Disposition: 14:45 Disposition: Home, Self-Care 01 Condition: Good Clinical Impression: Laceration, IDDM (insulin dependent diabetes mellitus), PVC's (premature ventricular contractions), PAC (premature atrial contraction), First degree AV block Osteoarthritis Qualifiers: Osteoarthritis location: multiple joints Osteoarthritis type: primary Qualified Code(s): M15.0 - Primary generalized (osteo)arthritis Head contusion Qualifiers: Encounter type: initial encounter Contusion of head detail: scalp Qualified Code(s): S00.03XA - Contusion of scalp, initial encounter Hypertension Qualifiers: Hypertension type: essential hypertension Qualified Code(s): I10 - Essential ( primary) hypertension COPD (chronic obstructive pulmonary disease) Qualifiers: COPD type: unspecified COPD Qualified Code(s): J44.9 - Chronic obstructive pulmonary disease, unspecified CHF (congestive heart failure) Qualifiers: Heart failure type: unspecified Heart failure chronicity: chronic Qualified Code(s): I50.9 - Heart failure, unspecified Chronic kidney disease Qualifiers: Chronic kidney disease stage: unspecified stage Qualified Code(s): N18.9 - Chronic kidney disease, unspecified - Discharge Information *PRESCRIPTION DRUG MONITORING PROGRAM REVIEWED*: Not Applicable *COPY OF PRESCRIPTION DRUG MONITORING REPORT IN PATIENT KRYSTYNA: Not Applicable Instructions: Head Injury, Adult, [id number], Laceration Care, Adult, Easy-to -Read, Stitches, [place], or Adhesive Wound Closure, [id number] Referrals: Karuna Napier PA-C [Primary Care Provider] - Forms: ED Department Discharge Additional Instructions: 1. Followup with your regular provider in 7-10 days as directed for reevaluation and suture removal of the 5 stitches placed today. Bring these discharge instructions with you to that visit. 2. Continue to observe your blood pressure closely by your regular providers 3. Continue strict walker use and fall precautions 4. Head precautions as directed-see form. 5. Antibacterial soap wash/soak with subsequent antibacterial dressing such as Neosporin, etc. as directed 2 times per day until the wound or laceration site completely heals. Keep the area clean and dry with activity restrictions as discussed. Never use hydrogen peroxide for wound care. 6. Immediately after this visit verify that your cellular telephone's voicemail has been activated and is empty. Also verify that your home telephone 's answering machine is operating properly and has space to receive messages. Note that it is sometimes necessary for us to be able to contact you at a later date to discuss your medical care. 8. Please remember that we are ALWAYS here for you and want to answer any questions you may have. Feel free to call the hospital any time and we call you back BRITNI. 9. Otherwise follow-up with your heart doctor and I doctor tomorrow as already scheduled. - Problem List & Annotations (1) Laceration SNOMED Code(s): 086767779 Code(s): POF4420 - Status: Acute Priority: High Current Visit: No Onset Date: 01/30/19 Annotation/Comment:: Excellent results with laceration repair as above. Wound care, activity restrictions, fall precautions, etc. extensively discussed. Neosporin dressing placed by the nurse. Last TdAP, which was given on 10/9/18, confirmed by me today from our medical records and [facility] report. (2) Head contusion SNOMED Code(s): 614017722 Code(s): S00.93XA - CONTUSION OF UNSPECIFIED PART OF HEAD, INITIAL ENCOUNTER Status: Acute Priority: High Current Visit: No Onset Date: 01/30/19 Annotation/Comment:: Head contusion as above. No evidence of fracture or significant injury other than her laceration. Head precautions given. Qualifiers: Encounter type: initial encounter Contusion of head detail: scalp Qualified Code(s): S00.03XA - Contusion of scalp, initial encounter (3) Hypertension SNOMED Code(s): 72425516 Code(s): I10 - ESSENTIAL (PRIMARY) HYPERTENSION Status: Chronic Priority : High Current Visit: No Annotation/Comment:: Blood pressure somewhat elevated in the emergency room. Continue to observe closely by her regular providers, including a cardiology follow-up appointment tomorrow by her history. Qualifiers: Hypertension type: essential hypertension Qualified Code(s): I10 - Essential (primary) hypertension (4) Chronic kidney disease SNOMED Code(s): 822086001 Code(s): N18.9 - CHRONIC KIDNEY DISEASE, UNSPECIFIED Status: Chronic Priority: Medium Current Visit: No Annotation/Comment:: Known history of diabetic nephropathy with close follow-up by regular providers. Qualifiers: Chronic kidney disease stage: unspecified stage Qualified Code(s): N18.9 - Chronic kidney disease, unspecified (5) Mixed anxiety depressive disorder SNOMED Code(s): 565277105 Code(s): F41.8 - OTHER SPECIFIED ANXIETY DISORDERS Status: Chronic Priority: Medium Current Visit: No Annotation/Comment:: Stable by patient history (6) PAC (premature atrial contraction) SNOMED Code(s): 649073963 Code(s): I49.1 - ATRIAL PREMATURE DEPOLARIZATION Status: Chronic Priority : Medium Current Visit: No Annotation/Comment:: Mild in the ER today. Continue to observe closely by regular providers with nonsymptomatic findings today. (7) PVC's (premature ventricular contractions) SNOMED Code(s): 04160392 Code(s): I49.3 - VENTRICULAR PREMATURE DEPOLARIZATION Status: Chronic Priority: Medium Current Visit: No Annotation/Comment:: As above. Note additional history of first-degree AV block (8) CHF (congestive heart failure) SNOMED Code(s): 15666393 Code(s): I50.9 - HEART FAILURE, UNSPECIFIED Status: Chronic Priority: High Current Visit: No Annotation/Comment:: No recent chest pain or anginal type symptoms. Stable by patient history including stable dependent edema. Cardiology appointment scheduled for tomorrow as above. Qualifiers: Heart failure type: unspecified Heart failure chronicity: chronic Qualified Code(s): I50.9 - Heart failure, unspecified (9) COPD (chronic obstructive pulmonary disease) SNOMED Code(s): 28949211 Code(s): J44.9 - CHRONIC OBSTRUCTIVE PULMONARY DISEASE, UNSPECIFIED Status : Chronic Priority: Medium Current Visit: No Annotation/Comment:: No recent history of fever, bronchitic type symptoms, etc.. Note history of sleep apnea with patient compliant with not tolerating her CPAP, which is also likely affecting her current hypertension. Qualifiers: COPD type: unspecified COPD Qualified Code(s): J44.9 - Chronic obstructive pulmonary disease, unspecified (10) IDDM (insulin dependent diabetes mellitus) SNOMED Code(s): 36513587 Code(s): E11.9 - TYPE 2 DIABETES MELLITUS WITHOUT COMPLICATIONS; Z79.4 - CENTRIFUGAL SEPARATOR (CURRENT) USE OF INSULIN Status: Chronic Priority: Medium Current Visit: No Annotation/Comment:: Stable by history. Continue to observe closely by regular provider. (11) Osteoarthritis SNOMED Code(s): 048738013 Code(s): M19.90 - UNSPECIFIED OSTEOARTHRITIS, UNSPECIFIED SITE Status: Chronic Priority: Medium Current Visit: No Annotation/Comment:: Stable by history with no evidence of significant injury from today's minor fall. Qualifiers: Osteoarthritis location: multiple joints Osteoarthritis type: primary Qualified Code(s): M15.0 - Primary generalized (osteo)arthritis - Problem List Review Problem List Initiated/Reviewed/Updated: Yes - My Orders Last 24 Hours: My Active Orders 09/13/19 13:05 Obtain Past Medical Record [OM.PC] Routine 09/13/19 13:15 Cardiac Monitoring [RC] . DIRECTED - Assessment/Plan Last 24 Hours: My Active Orders 09/13/19 13:05 Obtain Past Medical Record [OM.PC] Routine 09/13/19 13:15 Cardiac Monitoring [RC] . DIRECTED Assessment:: As above Plan: As above. Extensive precautions were given to the patient, who is in agreement with the treatment plan. See Patient Instructions for further treatment and plan.
[2019-09-13] MEDS ORDERED: Bacitracin/Neomycin/Polymyxin B Oint 0.9 GM U/D Packet TOP ONE (13:23)
== END 2019-09-13 14:45 | disposition home or self-care (01) ==
LOC: LL.ED 12:50
DX: S01.01XA Laceration without foreign body of scalp, initial encounter (principal); I13.0 Hypertensive heart and chronic kidney disease with heart failure and stage 1 through stage 4 chronic kidney disease, or unspecified chronic kidney disease; E11.22 Type 2 diabetes mellitus with diabetic chronic kidney disease; N18.9 Chronic kidney disease, unspecified; I50.9 Heart failure, unspecified; I49.3 Ventricular premature depolarization; I49.1 Atrial premature depolarization; I44.0 Atrioventricular block, first degree; J44.9 Chronic obstructive pulmonary disease, unspecified; M89.49 Other hypertrophic osteoarthropathy, multiple sites; E11.21 Type 2 diabetes mellitus with diabetic nephropathy; I25.10 Atherosclerotic heart disease of native coronary artery without angina pectoris; E78.00 Pure hypercholesterolemia, unspecified; F41.9 Anxiety disorder, unspecified; F32.9 Major depressive disorder, single episode, unspecified; Z87.891 Personal history of nicotine dependence; Z88.8 Allergy status to other drugs, medicaments and biological substances; Z79.82 Long term (current) use of aspirin; Z79.4 Long term (current) use of insulin; Z79.899 Other long term (current) drug therapy
CPT/HCPCS: 12002; 99283; J2001